=== PATIENT | male | born 1970 | race Caucasian/White ===

== ENCOUNTER 2017-09-17 01:10 | Observation (INO) | payer OTHER ==
[2017-09-17] MEDS ORDERED: ASPIRIN 81 MG PO STA (01:17)
--- NOTE | 2017-09-17 01:36 | XR ---
EXAMINATION TYPE: XR chest 1V portable DATE OF EXAM: 09/17/2017 COMPARISON: 02/28/2010 HISTORY: Chest pain TECHNIQUE: Single frontal view of the chest is obtained. FINDINGS: Heart and mediastinum are normal. Lungs are clear. Diaphragm is normal. Bony thorax is int act. IMPRESSION: Normal chest. No change.
[2017-09-17] MEDS ORDERED: MORPHINE SULFATE 4 MG/ML SYRINGE IVP STA (01:46)
[2017-09-17 02:08] LABS: Basophils % (A) 0 %; Eosinophils # (A) 0.2 k/uL (0-0.7); Eosinophils % (A) 3 %; HCT 44.2 % (39.0-53.0); Lymphocytes # (A) 3.6 k/uL (1.0-4.8); Lymphocytes % (A) 38 %; MCH 30.6 pg (25.0-35.0); MCHC 33.9 g/dL (31.0-37.0); MCV 90.4 fL (80.0-100.0); Mean Platelet Volume 8.5; Monocytes # (A) 0.9 k/uL (0-1.0); Monocytes % (A) 9 %; Neutrophils # (A) 4.5 k/uL (1.3-7.7); Neutrophils % (A) 47 %; Platelet Count 187 k/uL (150-450); RBC 4.89 m/uL (4.30-5.90); RDW 12.6 % (11.5-15.5); WBC 9.5 k/uL (3.8-10.6)
[2017-09-17 02:16] LABS: INR 1.1 (<1.2); Partial Thromboplastin Time 23.4 sec (22.0-30.0); Prothrombin Time 10.4 sec (9.0-12.0)
[2017-09-17 02:26] LABS: ALT 45 U/L (21-72); AST 32 U/L (17-59); Albumin 4.1 g/dL (3.5-5.0); Alkaline Phosphatase 49 U/L (38-126); Anion Gap 12 mmol/L; Blood Urea Nitrogen 21 mg/dL (9-20); Calcium 9.5 mg/dL (8.4-10.2); Carbon Dioxide 26 mmol/L (22-30); Chloride 105 mmol/L (98-107); Glucose 107 mg/dL (74-99); Magnesium 1.9 mg/dL (1.6-2.3); Potassium 4.2 mmol/L (3.5-5.1); Sodium 143 mmol/L (137-145); Total Bilirubin 0.7 mg/dL (0.2-1.3); Total Protein 6.8 g/dL (6.3-8.2)
[2017-09-17 02:33] LABS: Creatine Kinase 190 U/L (55-170)
[2017-09-17 02:45] LABS: Creatine Kinase MB 1.3 ng/mL (0.0-2.4); Troponin I <0.012 ng/mL (0.000-0.034)
[2017-09-17] MEDS ORDERED: RX INFO: IV CONTRAST WAS GIVEN 1 EACH MISC MISCELLANE PRN (03:12)
[2017-09-17] MEDS ORDERED: MORPHINE SULFATE 4 MG/ML SYRINGE IV STA (03:13)
[2017-09-17] MEDS ORDERED: MAG HYDROX/AL HYDROX/SIMETH 30 ML, HYOSCYAMINE ELIXIR 10 ML, CIMETIDINE HCL 300 MG, LID... PO STA ×4 (03:13)
--- NOTE | 2017-09-17 03:49 | CT ---
EXAMINATION TYPE: CT angio chest DATE OF EXAM: 09/17/2017 3:38 AM COMPARISON: NONE HISTORY: chest pain, rule of P/E CT DLP: 458 mGycm Automated exposure control for dose reduction was used. CONTRAST: CTA scan of the thorax is performed with IV Contrast, patient injected with 70ml mL of Isovue 370, pu lmonary embolism protocol. There are 3-D post processed images.. FINDINGS: The lungs are clear of infiltrate. There is no evidence of a pulmonary mass. There is no pleural effu kimberly. Gallbladder is large and measures 11.4 cm in length. There is a calcified gallstone. Heart size is normal. There is no pericardial effusion. There is normal contrast opacification of the pulmonary arteries. I see no filling defect. There is no mediastinal adenopathy. There are no hilar masses. The bony thorax is intact. IMPRESSION: NO EVIDENCE OF PULMONARY EMBOLISM. ENLARGED ELONGATED GALLBLADDER. CALCIFIED GALLSTONE.
[2017-09-17] MEDS ORDERED: NITROGLYCERIN SL TABS 0.4 MG TAB SUBLINGUAL PRN (04:41)
--- NOTE | 2017-09-17 05:23 | ED ---
Chest Pain HPI - General Chief Complaint: Chest Pain Stated Complaint: Chest Pain Time Seen by Provider: 09/17/17 01:17 Source: patient Mode of arrival: wheelchair Limitations: no limitations - History of Present Illness Initial Comments: This patient is a 46-year-old man who presents with substernal chest pain that started approximately an hour ago while he was sleeping. The patient states that it feels like an anvil on his chest. He rates it constant and severe. Patient has not noted worsening or relieving factors. He did not have any associated symptoms. When the pain did not resolve he felt that should be checked here. He denies having similar in the past. MD Complaint: chest pain Onset/Timin -: hour(s) Onset: during rest, awoke with symptoms Pain Location: substernal Pain Radiation: back Severity: severe Quality: aching Consistency: constant Improves With: nothing Worsens With: nothing Treatments Prior to Arrival: none - Related Data Home Medications Medication Instructions Recorded Confirmed Lisdexamfetamine Dimesylate 40 mg PO QAM 09/17/17 09/17/17 [Vyvanse] Naproxen Sodium [Aleve] 440 mg PO Q6HR PRN 09/17/17 09/17/17 buPROPion SR [Wellbutrin Sr] 150 mg PO DAILY 09/17/17 09/17/17 Allergies Allergy/AdvReac Type Severity Reaction Status Date / Time No Known Allergies Allergy Verified 09/17/17 01:12 Review of Systems ROS Statement: Those systems with pertinent positive or pertinent negative responses have been documented in the HPI. ROS Other: All systems not noted in ROS Statement are negative. Constitutional: Denies: fever, chills Respiratory: Denies: cough, dyspnea Cardiovascular: Reports: chest pain. Denies: palpitations, dyspnea on exertion , orthopnea, edema Gastrointestinal: Denies: abdominal pain, nausea, vomiting, diarrhea Genitourinary: Denies: dysuria, hematuria Musculoskeletal: Denies: back pain Skin: Denies: rash Neurological: Denies: headache, weakness, numbness EKG Findings - EKG Results: EKG: interpreted by LIBERTAD, sinus rhythm (Rate proximally 60 bpm), normal axis, normal QRS, normal ST/T, no acute changes - PR, Pacemaker, Normal: Normal tracing: normal tracing Past Medical History Past Medical History: No Reported History History of Any Multi-Drug Resistant Organisms: None Reported Past Surgical History: No Surgical Hx Reported Past Psychological History: Anxiety Smoking Status: Never smoker Past Alcohol Use History: Occasional Past Drug Use History: None Reported - Past Family History Father Family Medical History: Coronary Artery Disease (CAD), Diabetes Mellitus, Myocardial Infarction ([place]) Additional Family Medical History / Comment(s): Stents X2 General Exam Limitations: no limitations General appearance: alert, in no apparent distress Head exam: Present: atraumatic, normocephalic Eye exam: Present: normal appearance. Absent: scleral icterus, conjunctival injection Neck exam: Present: normal inspection Respiratory exam: Present: normal lung sounds bilaterally. Absent: respiratory distress, wheezes, rales, rhonchi, stridor, chest wall tenderness Cardiovascular Exam: Present: regular rate, normal rhythm, normal heart sounds. Absent: systolic murmur, diastolic murmur, rubs, gallop GI/Abdominal exam: Present: soft. Absent: distended, tenderness, guarding, rebound, rigid, mass Extremities exam: Present: normal inspection, normal capillary refill. Absent: pedal edema, calf tenderness Back exam: Present: normal inspection. Absent: CVA tenderness (R), CVA tenderness (L) Neurological exam: Present: alert Skin exam: Present: warm, dry, intact, normal color. Absent: rash Course Vital Signs 09/17/17 09/17/17 09/17/17 01:12 01:45 02:35 Temperature 98.2 F Pulse Rate 65 68 Pulse Rate [ 87 Pulse Oximetery ] Respiratory 18 18 Rate Blood Pressure 166/94 130/87 Blood Pressure [Left Arm] O2 Sat by Pulse 100 98 Oximetry 09/17/17 09/17/17 09/17/17 03:39 05:34 06:08 Temperature 97.6 F Pulse Rate 75 Pulse Rate [ 75 66 Pulse Oximetery ] Respiratory 20 18 18 Rate Blood Pressure 146/95 Blood Pressure 118/85 [Left Arm] O2 Sat by Pulse 99 97 Oximetry Chest Pain MDM - [facility] Patient's 46-year-old man with chest pains. Given the patient's hypertension and the radiation to the back of the chest is ordered which is negative. The patient did have relief of his symptoms after a second dose of medication. Patient be admitted for serial cardiac enzymes and telemetry monitoring, as well as to have ultrasound of the right upper quadrant to rule out biliary colic. Disposition Clinical Impression: Chest pain Disposition: ADMITTED IP TO THIS HOSP Condition: Good
[2017-09-17 05:55] VITALS: BMI 29.7
[2017-09-17 08:06] LABS: Creatine Kinase 153 U/L (55-170)
[2017-09-17 08:19] LABS: Creatine Kinase MB 1.3 ng/mL (0.0-2.4); Troponin I <0.012 ng/mL (0.000-0.034)
--- NOTE | 2017-09-17 08:52 | US ---
EXAMINATION TYPE: US abdomen limited DATE OF EXAM: 09/17/2017 COMPARISON: NONE CLINICAL HISTORY: Pain, attention RUQ. NPO. RUQ pain radiating to back. EXAM MEASUREMENTS: Liver Length: 16.2 cm Gallbladder Wall: 0.6 cm CBD: 0.9 cm CHD: 0.8 cm Right Kidney: 11.6 x 5.4 x 6.0 cm Pancreas: Obscured by bowel gas Liver: Appears echogenic and course. There is diminished visualization of the portal triads. These f indings most commonly related to hepatic steatosis and limits evaluation for underlying hepatic cesario s. Gallbladder: Thickened wall with possible surrounding fluid. Neck not well visualized. Echogenic f ocus best seen LLD - 0.8 cm. Lesion seen adjacent to wall = 0.3 cm Evidence for sonographic Brewster's sign: No CBD: Dilated CHD: Dilated Right Kidney: wnl IMPRESSION: Sonographic findings most compatible with acute cholecystitis. There is gallbladder wall thickening, pericholecystic fluid, cholelithiasis within the gallbladder neck, and common bile duct d ilation. However there is no sonographic Brewster sign present therefore ensure there are sitting clini ramin symptoms and laboratory values. If equivocal HIDA scan could be performed.
--- NOTE | 2017-09-17 09:13 | P.CRDCN ---
History of Present Illness Consult date: 09/17/17 History of present illness: Mr. Sanchez is a pleasant 46-year-old male past medical history significant for attention deficit disorder and depression. He denies personal history of coronary artery disease, hypertension, dyslipidemia or diabetes mellitus. He has never seen a senior coldfusion developer for any reason. We have been asked to see him in consultation for chest pain. He states he woke up last night in the middle of the night with intense heavy chest pain that radiated across his chest from left to right and through to his back. He denies radiation to the arm , neck or jaw. He was diaphoretic and mildly nauseated with this pain. He denies associated shortness of breath, dizziness, palpitations or vomiting. The pain persisted with no specific aggravating or alleviating factors. He continues to have a mild discomfort in the anterior mid-sternal region that is not reproducible with palpation or made worse with inspiration. IV morphine and GI cocktail was given in ED and ultimately a second dose of morphine helped relieve the intensity of the pain. EKG reveals sinus mechanism with no acute ST or T-wave abnormalities. Chest xray negative for an acute cardiopulmonary process. CT angios of the chest performed reveals no evidence of pulmonary embolism. Elongated gallbladder with calcified gallstone. abdominal ultrasound reveals findings compatible with acute cholecystitis. There is goblet or wall thickening, pericholecystic fluid, cholelithiasis is in the gallbladder neck and common bile duct dilation. HIDA recommended. Laboratory data reviewed, hemoglobin 15, platelets 187, sodium 143, potassium 4.2, magnesium 1.9, creatinine 0.9, cardiac enzymes negative 2. Current daily medications include wellbutrin, vyvanse, aleeve and multi- vitamin. Cardiac risk factors include family history with father having premature coronary artery disease with angioplasty and former tobacco use, quit 3 years ago. Review of Systems At the time of my exam: CONSTITUTIONAL: Denies fever. Denies chills. EYES: Denies blurred vision. Denies vision changes. Denies eye pain. EARS, NOSE, MOUTH & THROAT: Denies headache. Denies sore throat. Denies ear pain. CARDIOVASCULAR: Complains of mild mid-sternal chest ache. Denies shortness of breath. Denies orthopnea. Denies PND. Denies palpitations. RESPIRATORY: Denies cough. GASTROINTESTINAL: Denies abdominal pain. Denies diarrhea. Denies constipation. Denies nausea. Denies vomiting. MUSCULOSKELETAL: Denies myalgias. INTEGUMENTARY: Denies pruitis. Denies rash. NEUROLOGIC: Denies numbness. Denies tingling. Denies weakness. PSYCHIATRIC: Denies anxiety. Denies depression. ENDOCRINE: Denies fatigue. Denies weight change. Denies polydipsia. Denies polyurina. GENITOURINARY: Denies burning, hematuria or urgency with micturation. HEMATOLOGIC: Denies history of anemia. Denies bleeding. Past Medical History Past Medical History: No Reported History History of Any Multi-Drug Resistant Organisms: None Reported Past Surgical History: No Surgical Hx Reported Additional Past Surgical History / Comment(s): Tear duct replaced, Lasic 2018 Past Anesthesia/Blood Transfusion Reactions: No Reported Reaction Past Psychological History: Anxiety Smoking Status: Never smoker Past Alcohol Use History: Occasional Past Drug Use History: None Reported - Past Family History Father Family Medical History: Coronary Artery Disease (CAD), Diabetes Mellitus, Myocardial Infarction ([place]) Additional Family Medical History / Comment(s): Stents X2 Medications and Allergies Home Medications Medication Instructions Recorded Confirmed Type Multivitamins, Thera [Multivitamin 1 tab PO DAILY 09/17/17 09/17/17 History (formulary)] Naproxen Sodium [Aleve] 440 mg PO Q6HR PRN 09/17/17 09/17/17 History buPROPion SR [Wellbutrin Sr] 150 mg PO DAILY 09/17/17 09/17/17 History buPROPion XL [Wellbutrin Xl] 300 mg PO DAILY 09/17/17 09/17/17 History Allergies Allergy/AdvReac Type Severity Reaction Status Date / Time No Known Allergies Allergy Verified 09/17/17 08:15 Physical Exam Vitals: Vital Signs Temp Pulse Pulse Resp BP BP Pulse Ox 09/17/17 07:25 98 F 75 16 128/79 94 L 09/17/17 06:08 66 18 09/17/17 05:34 97.6 F 75 18 118/85 97 09/17/17 03:39 75 20 146/95 99 09/17/17 02:35 68 18 130/87 98 09/17/17 01:45 87 09/17/17 01:12 98.2 F 65 18 166/94 100 Intake and Output 05/10/2909/17/17 09/17/17 22:59 06:59 14:59 Intake Total 10 Balance 10 Intake: Amount of Fluid Infused ( 10 ml) Other: Voiding Method Toilet # Voids 1 Weight 99.7 kg Blood pressure 128/79 heart rate 75 afebrile maintaining oxygen saturation on room air. GENERAL: This is a 46-year-old male in no apparent distress at the time of my examination. HEENT: Head is atraumatic, normocephalic. Pupils are equal, round. Sclerae anicteric. Conjunctivae are clear. Mucous membranes of the mouth are moist. Neck is supple. There is no jugular venous distention. No carotid bruit is heard. LUNGS: Clear to auscultation no wheezes, rales or rhonchi. No chest wall tenderness is noted on palpation or with deep breathing. HEART: Regular rate and rhythm without murmurs, rubs or gallops. S1 and S2 heard. ABDOMEN: Soft, nontender. Bowel sounds are heard. No organomegaly noted. EXTREMITIES: No evidence of peripheral edema and no calf tenderness noted. VASCULAR: Radial and dorsalis pedis pulses palpated, no evidence of clubbing. NEUROLOGIC: Patient is awake, alert and oriented x3. Results 09/17/17 01:30 09/17/17 01:30 Cardiac Enzymes 09/17/17 09/17/17 Range/Units 01:30 01:30 AST 32 (17-59) U/L CK-MB (CK-2) 1.3 (0.0-2.4) ng/mL Troponin I <0.012 (0.000-0.034) ng/mL Coagulation 09/17/17 Range/Units 01:30 PT 10.4 (9.0-12.0) sec APTT 23.4 (22.0-30.0) sec CBC 09/17/17 Range/Units 01:30 WBC 9.5 (3.8-10.6) k/uL RBC 4.89 (4.30-5.90) m/uL Hgb 15.0 (13.0-17.5) gm/dL Hct 44.2 (39.0-53.0) % Plt Count 187 (150-450) k/uL Comprehensive Metabolic Panel 09/17/17 Range/Units 01:30 Sodium 143 (137-145) mmol/L Potassium 4.2 (3.5-5.1) mmol/L Chloride 105 (98-107) mmol/L Carbon Dioxide 26 (22-30) mmol/L BUN 21 H (9-20) mg/dL Creatinine 0.90 (0.66-1.25) mg/dL Glucose 107 H (74-99) mg/dL Calcium 9.5 (8.4-10.2) mg/dL AST 32 (17-59) U/L ALT 45 (21-72) U/L Alkaline Phosphatase 49 (38-126) U/L Total Protein 6.8 (6.3-8.2) g/dL Albumin 4.1 (3.5-5.0) g/dL Current Medications Generic Name Dose Route Start Last Admin Trade Name Freq PRN Reason Stop Dose Admin Aspirin 325 mg 09/18/17 09:00 Aspirin PO DAILY TIM Miscellaneous Information 1 each 09/17/17 03:12 Rx Info: Iv Contrast Was Given MISCELLANE 09/19/17 03:13 DAILY PRN Per Protocol Nitroglycerin 0.4 mg 09/17/17 04:41 Nitrostat SUBLINGUAL Q5M PRN Chest Pain Intake and Output 09/16/17 09/17/17 09/17/17 22:59 06:59 14:59 Intake Total 10 Balance 10 Intake: Amount of Fluid Infused ( 10 ml) Other: Voiding Method Toilet # Voids 1 Weight 99.7 kg 09/17/17 01:30 09/17/17 01:30 Assessment and Plan Assessment: ASSESSMENT 1. Chest pain, atypical. An acute coronary event has been rule out with no EKG evidence of ischemia and negative cardiac enzymes. 2. Gallbladder wall thickening, pericholecystic fluid, cholelithiasis with gallbladder neck and common bile duct dilation. 3. Cardiac risk factors are family history and former tobacco use. PLAN Obtain 2D echocardiogram and doppler study to assess cardiac structure and function. Ongoing medical management of gallbladder disease. Stress testing as an outpatient once gallbladder disease addressed. Follow-up with Dr. Dalton in 2 weeks. Thank you kindly for this consultation. Nurse Practitioner note has been reviewed, I agree with a documented findings and plan of care. Patient was seen and examined.
--- NOTE | 2017-09-17 10:35 | P.HPIM ---
History of Present Illness H&P Date: 09/17/17 Chief Complaint: Chest pain 46-year-old male who presented to the emergency room with a chief complaint of chest pain. Patient states he started having midsternal chest pain that radiated into his back last night. Denies radiation to the arm or neck. He described the pain as a heavy pressure on his chest. Denied shortness of breath. Denied nausea or vomiting. He states he was working out in the yard earlier in the day and denied chest pain at that time. He denies any pain or discomfort after meals. Chest x-ray: Negative for acute process Chest CTA: Negative for pulmonary emboli. Enlarged elongated gallbladder. Calcified gallstones. Gallbladder US: Findings compatible with acute cholecystitis. There is gallbladder wall thickening, pericholecystic fluid, cholelithiasis within the gallbladder neck, and common bile duct dilation. EKG: Sinus rhythm. Rate 60. Laboratory data: WBC 9.5. Hemoglobin 15.0. Platelet count 187. Sodium 143. Potassium 4.2. BUN 21. Creatinine 0.90. Glucose 107. Magnesium 1.9. Troponin: Negative 2 The patient was admitted to the hospital under the care of Dr. Guerin to the observation unit. Consultations were placed to cardiology. Review of Systems Those systems with pertinent positive or pertinent negative responses have been documented in the HPI Past Medical History Past Medical History: No Reported History History of Any Multi-Drug Resistant Organisms: None Reported Past Surgical History: No Surgical Hx Reported Additional Past Surgical History / Comment(s): Tear duct replaced, Lasic 2017 Past Anesthesia/Blood Transfusion Reactions: No Reported Reaction Past Psychological History: Anxiety Smoking Status: Never smoker Past Alcohol Use History: Occasional Past Drug Use History: None Reported - Past Family History Father Family Medical History: Coronary Artery Disease (CAD), Diabetes Mellitus, Myocardial Infarction ([place]) Additional Family Medical History / Comment(s): Stents X2 Medications and Allergies Home Medications Medication Instructions Recorded Confirmed Type Multivitamins, Thera [Multivitamin 1 tab PO DAILY 09/17/17 09/17/17 History (formulary)] Naproxen Sodium [Aleve] 440 mg PO Q6HR PRN 09/17/17 09/17/17 History buPROPion XL [Wellbutrin Xl] 300 mg PO DAILY 09/17/17 09/17/17 History Allergies Allergy/AdvReac Type Severity Reaction Status Date / Time No Known Allergies Allergy Verified 09/17/17 08:15 Physical Exam Vitals: Vital Signs Temp Pulse Pulse Resp BP BP Pulse Ox 09/17/17 08:00 16 09/17/17 07:25 98 F 75 16 128/79 94 L 09/17/17 06:08 66 18 09/17/17 05:34 97.6 F 75 18 118/85 97 09/17/17 03:39 75 20 146/95 99 09/17/17 02:35 68 18 130/87 98 09/17/17 01:45 87 09/17/17 01:12 98.2 F 65 18 166/94 100 Intake and Output 09/16/17 09/17/17 09/17/17 22:59 06:59 14:59 Intake Total 10 Balance 10 Intake: Amount of Fluid Infused ( 10 ml) Other: Voiding Method Toilet Toilet # Voids 1 Weight 99.7 kg GENERAL: This is a 46-year-old male in no apparent distress at the time of examination. Pleasant and cooperative. HEENT: Head is atraumatic, normocephalic. Pupils are equal, round, and reactive to light. Sclerae anicteric. Conjunctivae are clear. Mucus membranes of the mouth are moist. Neck is supple. RESPIRATORY: Clear to ausculation. No wheezes, rales, or rhonchi. No use of accessory muscles. Patient maintaining oxygen saturation greater than 92%. No chest wall tenderness is noted on palpation or with deep breathing. CARDIOVASCULAR: Regular rate and rhythm. S1 and S2 noted. No systolic or diastolic murmur auscultated. No JVD noted. No S3 or S4 noted. GASTROINTESTINAL: No distention noted. Abdomen soft and round. Normal active bowel sounds auscultated x 4 quadrants. Mild pain and tenderness noted upon palpation of right upper quadrant. INTEGUMENTARY: No cyanosis. No jaundice. No rashes noted. No cellulitis noted. EXTREMITIES: 2+ peripheral pulses. No evidence of peripheral edema. No calf tenderness noted. NEUROLOGIC: Cranial nerves II-XII intact. PSYCHIATRIC: Awake, alert, and oriented X 3. Appropriate affect. Intact judgement and insight. Results CBC & Chem 7: 09/17/17 01:30 09/17/17 01:30 Labs: Abnormal Lab Results - Last 24 Hours (Table) 09/17/17 09/17/17 Range/Units 01:30 01:30 BUN 21 H (9-20) mg/dL Glucose 107 H (74-99) mg/dL Total Creatine Kinase 190 H (55-170) U/L Thrombosis Risk Factor Assmnt - Choose All That Apply Each Factor Represents 1 point: Age 41-60 years Thrombosis Risk Factor Assessment Total Risk Factor Score: 1 Thrombosis Risk Factor Assessment Level: Low Risk Assessment and Plan Plan: ASSESSMENT: Chest pain, present on admission, troponin negative x 2, acute coronary syndrome ruled out per cardiology Suspected acute cholecystitis, ultrasound reveals gallbladder wall thickening, pericholecystic fluid, cholelithiasis within the gallbladder neck, and common bile duct dilation. PLAN: Cardiology on consult. Appreciate recommendations and input Patient to have stress test on an outpatient basis Consult Dr. Cruz Maintain NPO Home meds as appropriate Monitor labs GI prophylaxis: Pepcid 20mg IV q12 hours DVT prophylaxis: JACKIE hose to bilateral lower extremities Monitor vital signs and address as appropriate Further recommendations pending patient's course Nurse practitioner note has been reviewed by physician. Signing provider agrees with the documented findings, assessment, and plan of care.
[2017-09-17 10:49] LABS: ALT 62 U/L (21-72); AST 55 U/L (17-59); Albumin 4.2 g/dL (3.5-5.0); Alkaline Phosphatase 55 U/L (38-126); Anion Gap 16 mmol/L; Blood Urea Nitrogen 16 mg/dL (9-20); Calcium 9.3 mg/dL (8.4-10.2); Carbon Dioxide 21 mmol/L (22-30); Chloride 103 mmol/L (98-107); Cholesterol 176 mg/dL (<200); HDL Cholesterol 52 mg/dL (40-60); LDL Cholesterol,Calculated 95 mg/dL (0-99); Sodium 140 mmol/L (137-145); Total Bilirubin 1.2 mg/dL (0.2-1.3); Total Protein 6.8 g/dL (6.3-8.2); Triglycerides 143 mg/dL (<150)
[2017-09-17 11:20] LABS: Glucose 121 mg/dL (74-99); Potassium 4.2 mmol/L (3.5-5.1)
--- NOTE | 2017-09-17 11:46 | ECHOF ---
Referral Reason:cp MEASUREMENTS -------- HEIGHT: 180.3 cm WEIGHT: 99.3 kg BP: RVIDd: 2.6 cm (< 3.3) IVSd: 1.4 cm (0.6 - 1.1) LVIDd: 4.1 cm (3.9 - 5.3) LVPWd: 1.2 cm (0.6 - 1.1) IVSs: 1.8 cm LVIDs: 2.6 cm LVPWs: 2.1 cm Ao Diam: 3.1 cm (2.0 - 3.7) AV Cusp: 1.9 cm (1.5 - 2.6) LA Diam: 3.4 cm (2.7 - 3.8) MV EXCURSION: 23.254 mm (> 18.000) MV EF SLOPE: 145 mm/s (70 - 150) EPSS: 0.3 cm MV E Heladio: 0.74 m/s MV DecT: 198 ms MV A Heladio: 0.70 m/s MV E/A Ratio: 1.06 RAP: 5.00 mmHg RVSP: 19.53 mmHg FINDINGS -------- Sinus rhythm. This was a technically good study. The left ventricular size is normal. There is mild concentric left ventricular hypertrophy. Overa ll left ventricular systolic function is normal with, an EF between 55 - 60 %. The right ventricle is normal in size. The left atrial size is normal. The right atrium is normal in size. The aortic valve is trileaflet, and appears structurally normal. No aortic stenosis or regurgitation. There is trace mitral regurgitation. Trace tricuspid regurgitation present. The right ventricular systolic pressure, as measured by Dopp ler, is 19.53mmHg. Pulmonic valve appears structurally normal. The aortic root size is normal. Normal inferior vena cava with normal inspiratory collapse consistent with estimated right atrial pre ssure of 5 mmHg. The pericardium is normal. CONCLUSIONS -------- 1. Sinus rhythm. 2. This was a technically good study. 3. The left ventricular size is normal. 4. There is mild concentric left ventricular hypertrophy. 5. Overall left ventricular systolic function is normal with, an EF between 55 - 60 %. 6. The right ventricle is normal in size. 7. The left atrial size is normal. 8. The right atrium is normal in size. 9. The aortic valve is trileaflet, and appears structurally normal. No aortic stenosis or regurgitati on. 10. There is trace mitral regurgitation. 11. Trace tricuspid regurgitation present. 12. The right ventricular systolic pressure, as measured by Doppler, is 19.53mmHg. 13. Pulmonic valve appears structurally normal. 14. The aortic root size is normal. 15. Normal inferior vena cava with normal inspiratory collapse consistent with estimated right atrial pressure of 5 mmHg. 16. The pericardium is normal. PACKING ROOM SUPERVISOR: Xiomara No RDCS
[2017-09-17] MEDS ORDERED: BUPIVACAINE (PF) 0.25% 30 ML VIAL SQ ONE ×2 (12:51)
[2017-09-17] MEDS: LACTATED RINGERS 1,000 ML IV ONE ×2 (12:51→13:12)
[2017-09-17] MEDS ORDERED: HEPARIN SODIUM,PORCINE 5,000 UNIT/ML 1 ML VIAL SQ ONE (13:56)
[2017-09-17] MEDS ORDERED: PIPERACILLIN-TAZOBACTAM 3.375 GM in DEXTROSE/WATER 1 50ML.BAG IVPB STA (13:57)
[2017-09-17] MEDS ORDERED: SUCCINYLCHOLINE CHLORIDE 100 MG/5 ML SYR IV ONE (13:59)
[2017-09-17] MEDS ORDERED: LIDOCAINE 1% INJ 10MG/ML (20 ML MDV) ONE (13:59)
[2017-09-17] MEDS ORDERED: MIDAZOLAM 2 MG/2 ML VIAL ONE (13:59)
[2017-09-17] MEDS ORDERED: fentaNYL (PF) 50 MCG/ML 2 ML AMP ONE (13:59)
[2017-09-17] MEDS ORDERED: NEOSTIGMINE 1 MG/ML 10 ML VIAL ONE (13:59)
[2017-09-17] MEDS ORDERED: PROPOFOL 10 MG/ML 20 ML VIAL IV ONE (13:59)
[2017-09-17] MEDS ORDERED: GLYCOPYRROLATE 0.2 MG/ML 2 ML VIAL ONE (13:59)
[2017-09-17] MEDS ORDERED: ROCURONIUM BROMIDE 10 MG/ML 10 ML VIAL IV ONE (13:59)
[2017-09-17] MEDS ORDERED: KETOROLAC 30 MG/ML 1 ML VIAL ONE (13:59)
--- NOTE | 2017-09-17 13:59 | P.GSCN ---
History of Present Illness Consult date: 09/17/17 Reason for Consult: Acute cholecystitis History of present illness: Patient presents with pain in the midepigastric and lower chest region with radiation to the back. Some anorexia but no nausea or vomiting. He has had episodes like this in the past that were related to eating. This pain awoke him from sleep last night at 11 PM. Pain is improved currently but did persist throughout the night. Normal CMP and CBC. Normal cardiac echo. Cardiology has cleared him for surgery. CAT scan chest showed gallstones with what appears to be a stone in the neck of the gallbladder. Ultrasound also shows findings consistent with acute cholecystitis. Patient denies any change in the color of his skin urine or stool. Review of Systems The patient denies any acute changes in vision or hearing, no dysphagia or odynophagia, no chest pain or shortness of breath, no dysuria or hematuria, no headache, no runny nose, no rectal bleeding or melena, no unexplained weight loss Past Medical History Past Medical History: No Reported History History of Any Multi-Drug Resistant Organisms: None Reported Past Surgical History: No Surgical Hx Reported Additional Past Surgical History / Comment(s): Tear duct replaced, Lasic 2018 Past Anesthesia/Blood Transfusion Reactions: No Reported Reaction Past Psychological History: Anxiety Smoking Status: Never smoker Past Alcohol Use History: Occasional Past Drug Use History: None Reported - Past Family History Father Family Medical History: Coronary Artery Disease (CAD), Diabetes Mellitus, Myocardial Infarction ([place]) Additional Family Medical History / Comment(s): Stents X2 Medications and Allergies Home Medications Medication Instructions Recorded Confirmed Type Multivitamins, Thera [Multivitamin 1 tab PO DAILY 09/17/17 09/17/17 History (formulary)] Naproxen Sodium [Aleve] 440 mg PO Q6HR PRN 09/17/17 09/17/17 History buPROPion XL [Wellbutrin Xl] 300 mg PO DAILY 09/17/17 09/17/17 History Allergies Allergy/AdvReac Type Severity Reaction Status Date / Time No Known Allergies Allergy Verified 09/17/17 08:15 Surgical - Exam Vital Signs Temp Pulse Resp BP Pulse Ox 98.2 F 65 18 166/94 100 09/17/17 01:12 09/17/17 01:12 09/17/17 01:12 09/17/17 01:12 09/17/17 01:12 Physical exam: General: Well-developed, well-nourished HEENT: Normocephalic, sclerae nonicteric Abdomen: Mild epigastric tenderness, nondistended Extremities: No edema Neuro: Alert and oriented Results - Labs 09/17/17 01:30 09/17/17 07:05 Abnormal Lab Results - Last 24 Hours (Table) 09/17/17 09/17/17 09/17/17 Range/Units 01:30 01:30 07:05 Carbon Dioxide 21 L (22-30) mmol/L BUN 21 H (9-20) mg/dL Creatinine 0.64 L (0.66-1.25) mg/dL Glucose 107 H 121 H (74-99) mg/dL Total Creatine Kinase 190 H (55-170) U/L Diabetes panel 09/17/17 09/17/17 Range/Units 01:30 07:05 Sodium 143 140 (137-145) mmol/L Potassium 4.2 4.2 (3.5-5.1) mmol/L Chloride 105 103 (98-107) mmol/L Carbon Dioxide 26 21 L (22-30) mmol/L BUN 21 H 16 (9-20) mg/dL Creatinine 0.90 0.64 L (0.66-1.25) mg/dL Glucose 107 H 121 H (74-99) mg/dL Calcium 9.5 9.3 (8.4-10.2) mg/dL AST 32 55 (17-59) U/L ALT 45 62 (21-72) U/L Alkaline Phosphatase 49 55 (38-126) U/L Total Protein 6.8 6.8 (6.3-8.2) g/dL Albumin 4.1 4.2 (3.5-5.0) g/dL Triglycerides 143 (<150) mg/dL HDL Cholesterol 52 (40-60) mg/dL Calcium panel 09/17/17 09/17/17 Range/Units 01:30 07:05 Calcium 9.5 9.3 (8.4-10.2) mg/dL Albumin 4.1 4.2 (3.5-5.0) g/dL Pituitary panel 09/17/17 09/17/17 Range/Units 01:30 07:05 Sodium 143 140 (137-145) mmol/L Potassium 4.2 4.2 (3.5-5.1) mmol/L Chloride 105 103 (98-107) mmol/L Carbon Dioxide 26 21 L (22-30) mmol/L BUN 21 H 16 (9-20) mg/dL Creatinine 0.90 0.64 L (0.66-1.25) mg/dL Glucose 107 H 121 H (74-99) mg/dL Calcium 9.5 9.3 (8.4-10.2) mg/dL Adrenal panel 09/17/17 09/17/17 Range/Units 01:30 07:05 Sodium 143 140 (137-145) mmol/L Potassium 4.2 4.2 (3.5-5.1) mmol/L Chloride 105 103 (98-107) mmol/L Carbon Dioxide 26 21 L (22-30) mmol/L BUN 21 H 16 (9-20) mg/dL Creatinine 0.90 0.64 L (0.66-1.25) mg/dL Glucose 107 H 121 H (74-99) mg/dL Calcium 9.5 9.3 (8.4-10.2) mg/dL Total Bilirubin 0.7 1.2 (0.2-1.3) mg/dL AST 32 55 (17-59) U/L ALT 45 62 (21-72) U/L Alkaline Phosphatase 49 55 (38-126) U/L Total Protein 6.8 6.8 (6.3-8.2) g/dL Albumin 4.1 4.2 (3.5-5.0) g/dL Assessment and Plan (1) Acute cholecystitis Narrative/Plan: Clinical scenario discussed with the patient and his . Will proceed with laparoscopic, possible open cholecystectomy. Risks of bleeding, infection, bile leak, bile duct injury, retained common bile duct stone, conversion to an open procedure, respiratory and cardiac complications were discussed. He understands and wishes to proceed. Current Visit: Yes Status: Acute Code(s): K81.0 - ACUTE CHOLECYSTITIS SNOMED Code(s): 11719333
[2017-09-17] MEDS ORDERED: LACTATED RINGERS 1,000 ML IV ONE (15:00)
--- NOTE | 2017-09-17 15:11 | P.OP ---
Date of Procedure: 09/17/17 Procedure(s) Performed: PREOPERATIVE DIAGNOSIS: Acute cholecystitis POSTOPERATIVE DIAGNOSIS: Same PROCEDURE: Laparoscopic cholecystectomy SURGEON: Anthony EBL: Minimal see anesthesia record ANESTHESIA: Gen. COMPLICATIONS: None OPERATIVE PROCEDURE: The patient was brought and placed on the operating room table in the supine position. The patient was placed under general anesthesia at that time. The abdomen was prepped and draped in the usual sterile fashion. A small vertical infraumbilical incision was made. The fascia was grasped with the Citlalli forceps. The fascia was retracted anteriorly. The Veress needle was advanced into the peritoneal cavity. The saline drop test was normal. Insufflation took place up to 15 mmHg. A 5 mm optical trocar was advanced and the peritoneal cavity. 2 additional 5 mm trochars were placed in the right upper quadrant under direct visualization. A 10 mm trocar was advanced into the epigastric incision site. This was later switched to a 12 mm trocar because of the prominent inflammatory change around the cystic duct. The gallbladder was retracted superiorly and laterally. The peritoneum overlying the infundibulum was bluntly dissected. The patient's cystic duct was visualized. The junction between the cystic duct common and hepatic duct was identified. The cystic duct was then divided after placement of 3 12 mm clips on the patient's side and one on the specimen side. The cystic artery was identified and clipped as well. A small vessel was seen along the gallbladder fossa and clipped as well. The gallbladder was then removed from the liver bed using electrocautery. The patient had significant edema between the gallbladder and the liver bed. The gallbladder was then removed from the epigastric trocar site with an Endo Catch bag. The gallbladder fossa was irrigated with saline. There was no evidence of any bleeding or biliary drainage seen. The trochars were then removed. The fascia at the 12 millimeter site was closed using a [id number] 0 Vicryl stitch. The skin at all 4 sites was closed using a 4-0 Monocryl stitch. At the end of this procedure the sponge and needle counts were correct. DISPOSITION: Stable to the recovery room
[2017-09-17] MEDS: HYDROcodone/APAP 5-325MG 1 EACH TAB PO PRN (16:57)
[2017-09-17] MEDS: PIPERACILLIN-TAZOBACTAM 3.375 GM in DEXTROSE/WATER 1 50ML.BAG IVPB SCH (20:02)
[2017-09-17] MEDS: MORPHINE SULFATE 4 MG/ML SYRINGE IVP PRN (20:03)
[2017-09-17] MEDS: FAMOTIDINE 20 MG/2 ML VIAL IV SCH (20:19)
[2017-09-18] MEDS: PIPERACILLIN-TAZOBACTAM 3.375 GM in DEXTROSE/WATER 1 50ML.BAG IVPB SCH (03:36)
[2017-09-18] MEDS: MORPHINE SULFATE 4 MG/ML SYRINGE IVP PRN (03:38)
[2017-09-18 07:28] LABS: Basophils % (A) 0 %; Eosinophils # (A) 0.1 k/uL (0-0.7); Eosinophils % (A) 1 %; HCT 46.2 % (39.0-53.0); Lymphocytes # (A) 2.8 k/uL (1.0-4.8); Lymphocytes % (A) 28 %; MCH 31.1 pg (25.0-35.0); MCHC 34.7 g/dL (31.0-37.0); MCV 89.5 fL (80.0-100.0); Mean Platelet Volume 8.3; Monocytes # (A) 0.6 k/uL (0-1.0); Monocytes % (A) 6 %; Neutrophils # (A) 6.4 k/uL (1.3-7.7); Neutrophils % (A) 63 %; Platelet Count 206 k/uL (150-450); RBC 5.16 m/uL (4.30-5.90); RDW 12.4 % (11.5-15.5); WBC 10.1 k/uL (3.8-10.6)
[2017-09-18] MEDS: HYDROcodone/APAP 5-325MG 1 EACH TAB PO PRN (07:37)
[2017-09-18 07:58] VITALS: BP 134/84; PULSE 81; RESP 18; TEMP 97.4
[2017-09-18 08:03] LABS: ALT 116 U/L (21-72); AST 91 U/L (17-59); Albumin 4.1 g/dL (3.5-5.0); Alkaline Phosphatase 63 U/L (38-126); Anion Gap 14 mmol/L; Blood Urea Nitrogen 10 mg/dL (9-20); Calcium 9.1 mg/dL (8.4-10.2); Carbon Dioxide 24 mmol/L (22-30); Chloride 104 mmol/L (98-107); Glucose 113 mg/dL (74-99); Potassium 4.2 mmol/L (3.5-5.1); Sodium 142 mmol/L (137-145); Total Bilirubin 1.9 mg/dL (0.2-1.3); Total Protein 6.7 g/dL (6.3-8.2)
[2017-09-18] MEDS: FAMOTIDINE 20 MG/2 ML VIAL IV SCH (08:59)
[2017-09-18] MEDS ORDERED: buPROPion XL 300 MG TAB.ER.24H PO SCH (09:00)
[2017-09-18] MEDS ORDERED: ASPIRIN 325 MG TAB PO SCH (09:00)
[2017-09-18] MEDS ORDERED: ASPIRIN 81 MG PO SCH (09:00)
[2017-09-18] MEDS ORDERED: buPROPion SR 150 MG TABLET.ER PO SCH (09:00)
--- NOTE | 2017-09-18 09:03 | P.DS ---
Providers Date of admission: 09/17/17 04:43 Expected date of discharge: 09/18/17 Attending physician: Lele Guerin Consults: 09/17/17 04:41 Consult Physician Routine Consulting Provider: Bowen Dalton Consult Reason/Comments: chest pain Do you want consulting provider notified?: Yes 09/17/17 09:15 Consult Physician Routine Consulting Provider: Miguel Cruz Consult Reason/Comments: gallstones Do you want consulting provider notified?: Yes Primary care physician: Lele Guerin [place] [facility] Course: 46-year-old male who presented to the emergency room with a chief complaint of chest pain. Patient states he started having midsternal chest pain that radiated into his back last night. Denies radiation to the arm or neck. He described the pain as a heavy pressure on his chest. Denied shortness of breath. Denied nausea or vomiting. He states he was working out in the yard earlier in the day and denied chest pain at that time. He denies any pain or discomfort after meals. Chest x-ray: Negative for acute process Chest CTA: Negative for pulmonary emboli. Enlarged elongated gallbladder. Calcified gallstones. Gallbladder US: Findings compatible with acute cholecystitis. There is gallbladder wall thickening, pericholecystic fluid, cholelithiasis within the gallbladder neck, and common bile duct dilation. EKG: Sinus rhythm. Rate 60. Laboratory data: WBC 9.5. Hemoglobin 15.0. Platelet count 187. Sodium 143. Potassium 4.2. BUN 21. Creatinine 0.90. Glucose 107. Magnesium 1.9. Troponin: Negative 2 The patient was admitted to the hospital under the care of Dr. Guerin to the observation unit. Consultations were placed to cardiology and general surgery. Cardiology evaluated the patient and recommended the patient follow up in two weeks with Dr. Dalton for outpatient stress testing. Patient underwent laparoscopic cholecystectomy with Dr. Cruz on 09/17/2017. He has done well postoperatively with no obvious complications. His surgical dressing sites are clean dry and intact. The patients pain is controlled. He is tolerating PO intake without nausea or vomiting. He was deemed stable for discharge per Dr. Guerin. He is to follow up outpatient with Dr. Guerin, Dr. Cruz, and Dr. Dalton. DISCHARGE DIAGNOSIS: Chest pain, present on admission, troponin negative x 2, acute coronary syndrome ruled out per cardiology Acute cholecystitis, ultrasound reveals gallbladder wall thickening, pericholecystic fluid, cholelithiasis within the gallbladder neck, and common bile duct dilation, s/p laparoscopic cholecystectomy on 09/17/2017, POD #1 Nurse practitioner note has been reviewed by physician. Signing provider agrees with the documented findings, assessment, and plan of care. Patient Condition at Discharge: Good Plan - Discharge Summary Discharge Rx Participant: No New Discharge Prescriptions: New HYDROcodone/APAP 5-325MG [[place] 5-325] 1 each PO Q4HR PRN #18 tab PRN Reason: Moderate Pain Docusate [Colace] 100 mg PO DAILY #30 capsule Continue buPROPion XL [Wellbutrin XL] 300 mg PO DAILY Multivitamins, Thera [Multivitamin (formulary)] 1 tab PO DAILY Discontinued Naproxen Sodium [Aleve] 440 mg PO Q6HR PRN PRN Reason: Pain Discharge Medication List Multivitamins, Thera [Multivitamin (formulary)] 1 tab PO DAILY 09/17/17 [History ] buPROPion XL [Wellbutrin XL] 300 mg PO DAILY 09/17/17 [History] Docusate [Colace] 100 mg PO DAILY #30 capsule 09/18/17 [Rx] HYDROcodone/APAP 5-325MG [[place] 5-325] 1 each PO Q4HR PRN #18 tab 09/18/17 [Rx] Follow up Appointment(s)/Referral(s): Miguel Cruz MD [Medical Doctor] - 1 Week Lele Guerin DO [Primary Care Provider] - 2 Weeks Activity/Diet/Wound Care/Special Instructions: Limited activity until you see Dr. Cruz in the office no lifting over 10 pounds No tub baths Discharge Disposition: HOME SELF-CARE
--- NOTE | 2017-09-18 14:35 | P.PN ---
Subjective Progress Note Date: 09/18/17 Principal diagnosis: Acute cholecystitis Patient feels well today. No significant pain at this time. Today's liver enzymes have increased slightly. He is afebrile. He is tolerating his diet. He would like to go home today. Objective - Vital Signs Vital signs: Vital Signs Temp 97.4 F L 09/18/17 07:57 Pulse 81 09/18/17 07:57 Resp 18 09/18/17 08:00 BP 134/84 09/18/17 07:57 Pulse Ox 98 09/18/17 07:57 Intake & Output 09/17/17 09/18/17 09/18/17 18:59 06:59 18:59 Intake Total 1625 440 Output Total 15 Balance 1610 440 Intake: IV 1250 Oral 375 440 Output: Estimated Blood Loss 15 Other: Voiding Method Toilet Toilet Toilet # Voids 1 - Exam Abdomen: Soft, nondistended, mild incisional tenderness, dressings clean and dry - Labs CBC & Chem 7: 09/18/17 06:21 09/18/17 06:21 Labs: Abnormal Lab Results - Last 24 Hours (Table) 09/18/17 Range/Units 06:21 Glucose 113 H (74-99) mg/dL Total Bilirubin 1.9 H (0.2-1.3) mg/dL AST 91 H (17-59) U/L ALT 116 H (21-72) U/L Assessment and Plan (1) Acute cholecystitis Narrative/Plan: Stable for discharge from my standpoint. We'll check labs in 1 week. Follow- up in 1 week. Status: Acute Code(s): K81.0 - ACUTE CHOLECYSTITIS SNOMED Code(s): 00259139
== END 2017-09-18 13:28 | disposition home or self-care (01) ==
LOC: EC 01:10 → 3OBS 04:43
PROVIDERS: ADMIT Family Medicine; ATTEND Family Medicine
DX: K80.12 Calculus of gallbladder with acute and chronic cholecystitis without obstruction (principal); K83.8 Other specified diseases of biliary tract; R07.89 Other chest pain; F41.9 Anxiety disorder, unspecified; F32.9 Major depressive disorder, single episode, unspecified; F90.0 Attention-deficit hyperactivity disorder, predominantly inattentive type; Z79.899 Other long term (current) drug therapy; Z83.3 Family history of diabetes mellitus; Z82.49 Family history of ischemic heart disease and other diseases of the circulatory system
CPT/HCPCS: 47562; 99285 ×2; 96374 ×2; 96376 ×2; 36415; 94760; 93005; 93306; 88304; 80061; 80053 ×2; 82550; 82553; 83735; 84484; 85025 ×2; 85610; 85730; 71045; 76705; 71275; G0378 ×2; J2250; J2270 ×2; J1644; J2710; J2001; J3010; J1885; J2543 ×2; J0330; J2704; Q9967

== ENCOUNTER → 2017-09-21 | Outpatient (CLI) | payer OTHER ==
[2017-09-21 09:08] LABS: Basophils % (A) 1 %; Eosinophils # (A) 0.1 k/uL (0-0.7); Eosinophils % (A) 1 %; HCT 45.5 % (39.0-53.0); HGB 15.9 gm/dL (13.0-17.5); Lymphocytes # (A) 2.3 k/uL (1.0-4.8); Lymphocytes % (A) 29 %; MCH 31.1 pg (25.0-35.0); MCHC 34.9 g/dL (31.0-37.0); MCV 89.1 fL (80.0-100.0); Mean Platelet Volume 7.8; Monocytes # (A) 0.6 k/uL (0-1.0); Monocytes % (A) 8 %; Neutrophils # (A) 4.5 k/uL (1.3-7.7); Neutrophils % (A) 58 %; Platelet Count 218 k/uL (150-450); RDW 12.3 % (11.5-15.5); WBC 7.8 k/uL (3.8-10.6)
[2017-09-21 09:42] LABS: ALT 76 U/L (21-72); AST 37 U/L (17-59); Albumin 4.6 g/dL (3.5-5.0); Alkaline Phosphatase 61 U/L (38-126); Anion Gap 13 mmol/L; Blood Urea Nitrogen 13 mg/dL (9-20); Calcium 9.7 mg/dL (8.4-10.2); Carbon Dioxide 26 mmol/L (22-30); Chloride 103 mmol/L (98-107); Glucose 120 mg/dL (74-99); Potassium 4.4 mmol/L (3.5-5.1); Sodium 142 mmol/L (137-145); Total Bilirubin 1.3 mg/dL (0.2-1.3); Total Protein 7.3 g/dL (6.3-8.2)
== END | disposition home or self-care (01) ==
LOC: LABWHC1 08:28
PROVIDERS: ATTEND Surgery
DX: K81.0 Acute cholecystitis (principal)
CPT/HCPCS: 36415; 80053; 85025

== ENCOUNTER 2017-09-27 09:58 | Observation (INO) | payer OTHER ==
[2017-09-27] MEDS ORDERED: RX INFO: IV CONTRAST WAS GIVEN 1 EACH MISC MISCELLANE PRN (10:49)
[2017-09-27] MEDS ORDERED: MORPHINE SULFATE 4 MG/ML SYRINGE IV STA (10:49)
[2017-09-27] MEDS ORDERED: SODIUM CHLORIDE 0.9% 1,000 ML IV STA ×2 (10:49)
[2017-09-27 11:14] LABS: Basophils # (A) 0.1 k/uL (0-0.2); Basophils % (A) 1 %; Eosinophils # (A) 0.1 k/uL (0-0.7); Eosinophils % (A) 1 %; HGB 16.5 gm/dL (13.0-17.5); Lymphocytes % (A) 30 %; MCH 31.1 pg (25.0-35.0); MCHC 34.4 g/dL (31.0-37.0); MCV 90.2 fL (80.0-100.0); Monocytes # (A) 0.5 k/uL (0-1.0); Monocytes % (A) 7 %; Neutrophils # (A) 3.9 k/uL (1.3-7.7); Neutrophils % (A) 59 %; Platelet Count 221 k/uL (150-450); RBC 5.32 m/uL (4.30-5.90); RDW 12.8 % (11.5-15.5); WBC 6.7 k/uL (3.8-10.6)
[2017-09-27 11:27] LABS: ALT 68 U/L (21-72); AST 45 U/L (17-59); Albumin 4.8 g/dL (3.5-5.0); Alkaline Phosphatase 60 U/L (38-126); Amylase 59 U/L (30-110); Anion Gap 13 mmol/L; Blood Urea Nitrogen 14 mg/dL (9-20); Calcium 9.7 mg/dL (8.4-10.2); Carbon Dioxide 24 mmol/L (22-30); Chloride 105 mmol/L (98-107); Glucose 102 mg/dL (74-99); Lipase 148 U/L (23-300); Potassium 4.9 mmol/L (3.5-5.1); Sodium 142 mmol/L (137-145); Total Bilirubin 1.5 mg/dL (0.2-1.3); Total Protein 7.4 g/dL (6.3-8.2)
--- NOTE | 2017-09-27 11:27 | XR ---
EXAMINATION TYPE: XR KUB DATE OF EXAM: 09/27/2017 COMPARISON: NONE HISTORY: Gallbladder surgery with abdominal TECHNIQUE: One view abdominal series FINDINGS: The osseous structures are intact. The bowel gas pattern is nonspecific. Lung bases are clear. Surg ical clips in the gallbladder fossa noted. Calcifications in pelvis are likely vascular. IMPRESSION: 1. Nonspecific abdomen.
--- NOTE | 2017-09-27 11:49 | CT ---
EXAMINATION TYPE: CT abdomen pelvis w con DATE OF EXAM: 09/27/2017 COMPARISON: NONE HISTORY: Rt side pain CT DLP: 849.2 mGycm Automated exposure control for dose reduction was used. TECHNIQUE: Helical acquisition of images was performed from the lung bases through the pelvis. CONTRAST: Performed without Oral Contrast and with IV Contrast, patient injected with 100 mL of Isovue 300. FINDINGS: LUNG BASES: No significant abnormality is appreciated. LIVER/GB: Liver is mildly hypoattenuated in comparison to that of the spleen suggesting mild hepatic steatosis. Postsurgical fat stranding and likely early fat necrosis is seen along the surgical tract from prior cholecystectomy anterior to the liver in the abdominal mesentery on series 3 image 18. No focal fluid collection is seen within the gallbladder fossa. Cholecystectomy clips are noted. 4 mm mm calculus is seen within the cystic duct remnant on series 8 image 37 and series 3 image 25. Common b ile duct is dilated up to 8 mm. PANCREAS: Pancreas enhances homogeneously without ductal dilatation. SPLEEN: No splenomegaly. ADRENALS: No significant abnormality is seen. KIDNEYS: Kidneys enhance and excrete symmetrically without hydronephrosis. FREE AIR: No free air is visualized. REPRODUCTIVE ORGANS: No significant abnormality is seen URINARY BLADDER: No significant abnormality is seen. ADENOPATHY: No greater than 1 cm short axis lymph nodes are seen within the abdomen or pelvis. OSSEOUS STRUCTURES: Very minimal degenerative changes of the lumbosacral spine are present. BOWEL: Amount retained colonic stool is seen within the ascending colon and transverse colon without dilatation. Colon measures up to 5.1 cm. Appendix is air-filled and within normal limits. Small varun l is nondilated.. IMPRESSION: 1. THERE IS A 4 MM CALCULUS WITHIN THE CYSTIC DUCT REMNANT AND DILATATION OF THE COMMON BILE DUCT UP TO 8 MM. 2. INFLAMMATORY CHANGE WITHIN THE VENTRAL ABDOMEN LIKELY RELATED TO THE POSTCHOLECYSTECTOMY STATUS PO SSIBLY EARLY FAT NECROSIS. 3. MODERATE AMOUNT RETAINED COLONIC STOOL ADJACENT TO THE INFLAMMATORY CHANGE, LIKELY COLONIC ILEUS W ITHOUT EVIDENCE OF OBSTRUCTION.
--- NOTE | 2017-09-27 11:58 | ED ---
General Adult HPI - General Chief complaint: Abdominal Pain Stated complaint: Abdominal pain, post gallbladder surgery Source: patient, RN notes reviewed, old records reviewed Mode of arrival: ambulatory Limitations: no limitations - History of Present Illness Initial comments: This is a 46-year-old male the ER for evaluation regarding abdominal pain, worsening abdominal pain for 2 days. Mild nausea no vomiting. No fevers. He does have positive history of recent gallbladder surgery. Surgery was done here at this hospital. Patient was feeling better until yesterday. Patient states the pain is progressively worsening it is diffuse periumbilical epigastric pain. - Related Data Home Medications Medication Instructions Recorded Confirmed Multivitamins, Thera [Multivitamin 1 tab PO DAILY 09/17/17 09/27/17 (formulary)] buPROPion XL [Wellbutrin XL] 300 mg PO DAILY 09/17/17 09/27/17 HYDROcodone/APAP 5-325MG [[place] 1 tab PO Q4HR PRN 09/27/17 09/27/17 5-325] Previous Rx's Medication Instructions Recorded Docusate [Colace] 100 mg PO DAILY #30 capsule 09/18/17 Allergies Allergy/AdvReac Type Severity Reaction Status Date / Time No Known Allergies Allergy Verified 09/27/17 10:16 Review of Systems ROS Statement: Those systems with pertinent positive or pertinent negative responses have been documented in the HPI. ROS Other: All systems not noted in ROS Statement are negative. Past Medical History Past Medical History: No Reported History History of Any Multi-Drug Resistant Organisms: None Reported Past Surgical History: Cholecystectomy Additional Past Surgical History / Comment(s): Tear duct replaced, Lasic 2017 Past Anesthesia/Blood Transfusion Reactions: No Reported Reaction Past Psychological History: Anxiety Smoking Status: Never smoker Past Alcohol Use History: Occasional Past Drug Use History: None Reported - Past Family History Father Family Medical History: Coronary Artery Disease (CAD), Diabetes Mellitus, Myocardial Infarction ([place]) Additional Family Medical History / Comment(s): Stents X2 General Exam Limitations: no limitations General appearance: alert, in no apparent distress Head exam: Present: atraumatic, normocephalic, normal inspection Eye exam: Present: normal appearance, PERRL, EOMI. Absent: scleral icterus, conjunctival injection, periorbital swelling ENT exam: Present: normal exam, mucous membranes moist Neck exam: Present: normal inspection. Absent: tenderness, meningismus, lymphadenopathy Respiratory exam: Present: normal lung sounds bilaterally. Absent: respiratory distress, wheezes, rales, rhonchi, stridor Cardiovascular Exam: Present: regular rate, normal rhythm, normal heart sounds. Absent: systolic murmur, diastolic murmur, rubs, gallop, clicks GI/Abdominal exam: Present: soft, tenderness (Diffuse), normal bowel sounds. Absent: distended, guarding, rebound, rigid Extremities exam: Present: normal inspection, full ROM, normal capillary refill. Absent: tenderness, pedal edema, joint swelling, calf tenderness Back exam: Present: normal inspection Neurological exam: Present: alert, oriented X3, CN II-XII intact Psychiatric exam: Present: normal affect, normal mood Skin exam: Present: warm, dry, intact, normal color. Absent: rash Course Vital Signs 09/27/17 10:10 Temperature 98.0 F Pulse Rate 101 H Respiratory 20 Rate Blood Pressure 143/94 O2 Sat by Pulse 98 Oximetry - Reevaluation(s) Reevaluation #1: 09/27/17 12:[address] Harp, Dr. Harp is aware. Reevaluation #2: 09/27/17 12:44 Patient still in significant pain Medical Decision Making - Medical Decision Making 46 male the ER with abdominal pain right flank pain postop. Patient does have positive choledocholithiasis with obstruction - Lab Data Result diagrams: 09/27/17 10:50 09/27/17 10:50 Lab Results 09/27/17 09/27/17 09/27/17 Range/Units 10:50 10:50 10:50 WBC 6.7 (3.8-10.6) k/uL RBC 5.32 (4.30-5.90) m/uL Hgb 16.5 (13.0-17.5) gm/dL Hct 48.0 (39.0-53.0) % MCV 90.2 (80.0-100.0) fL MCH 31.1 (25.0-35.0) pg MCHC 34.4 (31.0-37.0) g/dL RDW 12.8 (11.5-15.5) % Plt Count 221 (150-450) k/uL Neutrophils % 59 % Lymphocytes % 30 % Monocytes % 7 % Eosinophils % 1 % Basophils % 1 % Neutrophils # 3.9 (1.3-7.7) k/uL Lymphocytes # 2.0 (1.0-4.8) k/uL Monocytes # 0.5 (0-1.0) k/uL Eosinophils # 0.1 (0-0.7) k/uL Basophils # 0.1 (0-0.2) k/uL Sodium 142 (137-145) mmol/L Potassium 4.9 (3.5-5.1) mmol/L Chloride 105 (98-107) mmol/L Carbon Dioxide 24 (22-30) mmol/L Anion Gap 13 mmol/L BUN 14 (9-20) mg/dL Creatinine 0.87 (0.66-1.25) mg/dL Est GFR (CKD-EPI)AfAm >90 (>60 ml/min/1.73 sqM) Est GFR (CKD-EPI)NonAf >90 (>60 ml/min/1.73 sqM) Glucose 102 H (74-99) mg/dL Plasma Lactic Acid Sami 1.0 (0.7-2.0) mmol/L Calcium 9.7 (8.4-10.2) mg/dL Total Bilirubin 1.5 H (0.2-1.3) mg/dL AST 45 (17-59) U/L ALT 68 (21-72) U/L Alkaline Phosphatase 60 (38-126) U/L Total Protein 7.4 (6.3-8.2) g/dL Albumin 4.8 (3.5-5.0) g/dL Amylase 59 (30-110) U/L Lipase 148 (23-300) U/L - Radiology Data Radiology results: report reviewed (CT abdomen and pelvis shows positive bile duct stone with obstruction), image reviewed Disposition Clinical Impression: Choledocholithiasis with obstruction Disposition: ADMITTED IP TO THIS [facility] Condition: Good Is patient prescribed a controlled substance at d/c from ED?: No Referrals: Lele Guerin DO [Primary Care Provider] - 1-2 days
[2017-09-27] MEDS ORDERED: ONDANSETRON 4 MG/2 ML VIAL IVP PRN (12:43)
[2017-09-27] MEDS ORDERED: MORPHINE SULFATE 4 MG/ML SYRINGE IVP STA (12:43)
[2017-09-27] MEDS ORDERED: ONDANSETRON 4 MG/2 ML VIAL IVP STA (12:43)
[2017-09-27 13:19] VITALS: RESP 16
[2017-09-27 13:33] LABS: Appearance,Urine Clear (Clear); Bilirubin,Urine Negative (Negative); Blood,Urine Negative (Negative); Color,Urine Yellow; Glucose,Urine (UA) Negative (Negative); Ketones,Urine 1+ (Negative); Leukocyte Esterase,Urine Negative (Negative); Nitrite,Urine Negative (Negative); PH, Urine 6.5 (5.0-8.0); Protein,Urine Negative (Negative); Specific Gravity,Urine 1.041 (1.001-1.035); Urobilinogen,Urine <2.0 mg/dL (<2.0)
[2017-09-27] MEDS: MORPHINE SULFATE 4 MG/ML SYRINGE IVP PRN ×2 (14:18→19:14)
--- NOTE | 2017-09-27 17:35 | P.GSHP ---
History of Present Illness H&P Date: 09/27/17 Patient well-known to our service. He underwent laparoscopic cholecystectomy for acute calculus cholecystitis proximally 10 days ago. He did well for the first week or so after surgery but then 2 nights ago experienced recurrent pain in the right upper quadrant with radiation to the right chest and right back. This reminded him exactly of his initial presentation. He did have postoperatively after our last surgery a slight elevation of his liver enzymes. He came to the ER today for further evaluation. Bilirubin is slightly elevated however ALT AST and alkaline phosphatase are normal. CAT scan was performed to evaluate for bile leak however surprisingly on the CAT scan there is demonstration of a small stone at the cystic duct remnant right where it meets the common bile duct. No definite choledocholithiasis is seen. The patient has had no definite change in the color of his skin urine or stool. - Review of Systems Comment: The patient denies any acute changes in vision or hearing, no dysphagia or odynophagia, no chest pain or shortness of breath, no dysuria or hematuria, no headache, no runny nose, no rectal bleeding or melena, no unexplained weight loss Past Medical History Past Medical History: No Reported History History of Any Multi-Drug Resistant Organisms: None Reported Past Surgical History: Cholecystectomy Additional Past Surgical History / Comment(s): 09/17/17 Lap cholecystectomy, L tear duct replaced, bilateral eyes lasik surgery for vision correction in 2018 Past Anesthesia/Blood Transfusion Reactions: No Reported Reaction Smoking Status: Former smoker - Past Family History Father Family Medical History: Coronary Artery Disease (CAD), Diabetes Mellitus, Myocardial Infarction ([place]) Additional Family Medical History / Comment(s): Stents X2. Father had his [place] in his mid 50s. Mother Family Medical History: No Reported History Medications and Allergies Home Medications Medication Instructions Recorded Confirmed Type Multivitamins, Thera [Multivitamin 1 tab PO DAILY 09/17/17 09/27/17 History (formulary)] buPROPion XL [Wellbutrin XL] 300 mg PO DAILY 09/17/17 09/27/17 History Docusate [Colace] 100 mg PO DAILY #30 capsule 09/18/17 09/27/17 Rx HYDROcodone/APAP 5-325MG [[place] 1 tab PO Q4HR PRN 09/27/17 09/27/17 History 5-325] Allergies Allergy/AdvReac Type Severity Reaction Status Date / Time No Known Allergies Allergy Verified 09/27/17 10:16 Surgical - Exam Vital Signs Temp Pulse Resp BP Pulse Ox 98.0 F 101 H 20 143/94 98 09/27/17 10:10 09/27/17 10:10 09/27/17 10:10 09/27/17 10:10 09/27/17 10:10 Physical exam: General: Well-developed, well-nourished HEENT: Normocephalic, sclerae nonicteric Abdomen: Mild right upper quadrant tenderness, nondistended, incisions clean and dry Extremities: No edema Neuro: Alert and oriented Results - Labs 09/27/17 10:50 09/27/17 10:50 Abnormal Lab Results - Last 24 Hours (Table) 09/27/17 09/27/17 Range/Units 10:50 10:50 Glucose 102 H (74-99) mg/dL Total Bilirubin 1.5 H (0.2-1.3) mg/dL Ur Specific [place] 1.041 H (1.001-1.035) Urine Ketones 1+ H (Negative) Diabetes panel 09/27/17 Range/Units 10:50 Sodium 142 (137-145) mmol/L Potassium 4.9 (3.5-5.1) mmol/L Chloride 105 (98-107) mmol/L Carbon Dioxide 24 (22-30) mmol/L BUN 14 (9-20) mg/dL Creatinine 0.87 (0.66-1.25) mg/dL Glucose 102 H (74-99) mg/dL Calcium 9.7 (8.4-10.2) mg/dL AST 45 (17-59) U/L ALT 68 (21-72) U/L Alkaline Phosphatase 60 (38-126) U/L Total Protein 7.4 (6.3-8.2) g/dL Albumin 4.8 (3.5-5.0) g/dL Calcium panel 09/27/17 Range/Units 10:50 Calcium 9.7 (8.4-10.2) mg/dL Albumin 4.8 (3.5-5.0) g/dL Pituitary panel 09/27/17 Range/Units 10:50 Sodium 142 (137-145) mmol/L Potassium 4.9 (3.5-5.1) mmol/L Chloride 105 (98-107) mmol/L Carbon Dioxide 24 (22-30) mmol/L BUN 14 (9-20) mg/dL Creatinine 0.87 (0.66-1.25) mg/dL Glucose 102 H (74-99) mg/dL Calcium 9.7 (8.4-10.2) mg/dL Adrenal panel 09/27/17 Range/Units 10:50 Sodium 142 (137-145) mmol/L Potassium 4.9 (3.5-5.1) mmol/L Chloride 105 (98-107) mmol/L Carbon Dioxide 24 (22-30) mmol/L BUN 14 (9-20) mg/dL Creatinine 0.87 (0.66-1.25) mg/dL Glucose 102 H (74-99) mg/dL Calcium 9.7 (8.4-10.2) mg/dL Total Bilirubin 1.5 H (0.2-1.3) mg/dL AST 45 (17-59) U/L ALT 68 (21-72) U/L Alkaline Phosphatase 60 (38-126) U/L Total Protein 7.4 (6.3-8.2) g/dL Albumin 4.8 (3.5-5.0) g/dL Assessment and Plan (1) Abdominal pain Narrative/Plan: Suspect choledocholithiasis as the etiology of his pain. The stone present on CAT scan may be floating in the bile duct and is just currently seen at the junction with the cystic duct. Favor ERCP with sphincterotomy. Case was discussed with GI and currently plans are underway for ERCP tomorrow. Will repeat labs tomorrow. On CAT scan patient also with some constipation. We'll order some stool softeners today. Current Visit: Yes Status: Acute Code(s): R10.9 - UNSPECIFIED ABDOMINAL PAIN SNOMED Code(s): 39852050
[2017-09-27] MEDS ORDERED: MAGNESIUM CITRATE 296 ML BOTTLE PO ONE (17:36)
[2017-09-28] MEDS: HEPARIN SODIUM,PORCINE 5,000 UNIT/ML 1 ML VIAL SQ SCH ×3 (01:16→17:30)
[2017-09-28 08:24] LABS: Basophils % (A) 1 %; Eosinophils # (A) 0.1 k/uL (0-0.7); Eosinophils % (A) 1 %; HCT 48.9 % (39.0-53.0); HGB 16.1 gm/dL (13.0-17.5); Lymphocytes # (A) 1.5 k/uL (1.0-4.8); Lymphocytes % (A) 28 %; MCH 30.4 pg (25.0-35.0); MCV 92.2 fL (80.0-100.0); Mean Platelet Volume 8.2; Monocytes # (A) 0.5 k/uL (0-1.0); Monocytes % (A) 9 %; Neutrophils # (A) 3.1 k/uL (1.3-7.7); Neutrophils % (A) 60 %; Platelet Count 226 k/uL (150-450); RBC 5.31 m/uL (4.30-5.90); RDW 12.6 % (11.5-15.5); WBC 5.3 k/uL (3.8-10.6)
[2017-09-28 08:45] LABS: ALT 148 U/L (21-72); AST 96 U/L (17-59); Albumin 4.3 g/dL (3.5-5.0); Alkaline Phosphatase 74 U/L (38-126); Amylase 45 U/L (30-110); Anion Gap 11 mmol/L; Blood Urea Nitrogen 8 mg/dL (9-20); Calcium 9.1 mg/dL (8.4-10.2); Carbon Dioxide 25 mmol/L (22-30); Chloride 105 mmol/L (98-107); Glucose 104 mg/dL (74-99); Lipase 111 U/L (23-300); Potassium 4.5 mmol/L (3.5-5.1); Sodium 141 mmol/L (137-145); Total Bilirubin 1.1 mg/dL (0.2-1.3); Total Protein 6.8 g/dL (6.3-8.2)
[2017-09-28] MEDS ORDERED: buPROPion XL 300 MG TAB.ER.24H PO SCH (09:00)
[2017-09-28] MEDS ORDERED: DOCUSATE 100 MG CAP PO SCH (09:00)
--- NOTE | 2017-09-28 09:14 | P.CONS ---
History of Present Illness - Reason for Consult Consult date: 09/28/17 Abdominal pain retained gallstone Requesting physician: Miguel Cruz - History of Present Illness 46-year-old male postop day #11 laparoscopic cholecystectomy for calculus cholecystitis. Patient was discharged in satisfactory condition. 2 days ago he developed moderate abdominal pain in the midepigastric right upper quadrant radiating up to the right shoulder similar to his pain prior to cholecystectomy without fever. Discharge LFTs 09/21/17; TB 1.3. AST 37. ALT 76. AP 61. Admission LFTs; total bilirubin 1.5. AST 45. ALT 60. AP 60. This morning AST 96. ALT 148. AP 74. TB 1.1. Lipase 111. White count 5.3. Hemoglobin 16.1. Still reports mild abdominal discomfort but not as severe. CT abdomen and pelvis reported a retained gallstone possibly in the cystic duct remnant possible common bile duct. Review of Systems Constitutional: Denies fever, chills, sweats, weight gain, or loss. HEENT: Negative for migraines, blurred vision or loss, earaches, drainage, tinnitus, oral mucosal lesions, dysphagia, or odynophagia. Cardiac: Negative for chest pain, arrhythmias, or palpitation. Respiratory: Negative for shortness of breath, hemoptysis, cough, or sputum production. Gastrointestinal: See HPI for pertinent findings. Genitourinary: Negative for hematuria, urgency, frequency, polyuria, dysuria, or penile discharge. Musculoskeletal: Negative for muscle aches, swelling, arthritis, and arthralgias. Neurologic: Negative for stroke or TIA. Endocrine: Negative for thyroid problems. Skin: Negative for rash or itching. Psychiatric: Negative history for depression and anxiety Past Medical History Past Medical History: No Reported History History of Any Multi-Drug Resistant Organisms: None Reported Past Surgical History: Cholecystectomy Additional Past Surgical History / Comment(s): 09/17/17 Lap cholecystectomy, L tear duct replaced, bilateral eyes lasik surgery for vision correction in 2018 Past Anesthesia/Blood Transfusion Reactions: No Reported Reaction Smoking Status: Former smoker - Past Family History Father Family Medical History: Coronary Artery Disease (CAD), Diabetes Mellitus, Myocardial Infarction ([place]) Additional Family Medical History / Comment(s): Stents X2. Father had his [place] in his mid 50s. Mother Family Medical History: No Reported History Medications and Allergies Home Medications Medication Instructions Recorded Confirmed Type Multivitamins, Thera [Multivitamin 1 tab PO DAILY 09/17/17 09/27/17 History (formulary)] buPROPion XL [Wellbutrin XL] 300 mg PO DAILY 09/17/17 09/27/17 History Docusate [Colace] 100 mg PO DAILY #30 capsule 09/18/17 09/27/17 Rx HYDROcodone/APAP 5-325MG [[place] 1 tab PO Q4HR PRN 09/27/17 09/27/17 History 5-325] Lisdexamfetamine Dimesylate 40 mg PO DAILY 09/28/17 09/28/17 History [Vyvanse] Allergies Allergy/AdvReac Type Severity Reaction Status Date / Time No Known Allergies Allergy Verified 09/27/17 10:16 Physical Exam Vitals: Vital Signs Temp Pulse Pulse Resp BP BP Pulse Ox 09/27/17 21:29 98.0 F 91 16 130/76 98 09/27/17 13:35 97.7 F 72 16 135/86 100 09/27/17 13:19 98.2 F 77 16 141/91 98 09/27/17 10:10 98.0 F 101 H 20 143/94 98 Intake and Output 09/27/17 09/28/17 09/28/17 22:59 06:59 14:59 Intake Total 200 Balance 200 Intake: Intake, IV Titration 200 Amount Sodium Chloride 0.9% 1, 200 000 ml @ 100 mls/hr IV . Q10H STA Rx#:[id number] Other: Voiding Method Toilet Toilet # Voids 2 2 General appearance: The patient is alert, oriented, in no acute distress. HET: Head is normocephalic and atraumatic. Pupils are equal and reactive. Oropharynx is clear without lesions. Neck: Supple without lymphadenopathy. Trachea midline. Heart: S1 S2. Regular rate and rhythm. Lungs: No crackles or wheezes are heard. Abdomen: Soft, mild midepigastric right upper quadrant tenderness laparoscopic incisions healing without erythema or drainage, nondistended with bowel sounds. No peritoneal signs. No palpable organomegaly or masses. Extremities: Normal skin color and turgor. No cyanosis, rash, ulceration, clubbing, or edema. Radial and pedal pulses are 2/4 bilaterally. Neurological: No focal deficits. Strength and sensation are grossly intact. Results CBC & Chem 7: 09/28/17 07:44 09/28/17 07:44 Labs: Abnormal Lab Results - Last 24 Hours (Table) 09/27/17 09/27/17 Range/Units 10:50 10:50 Glucose 102 H (74-99) mg/dL Total Bilirubin 1.5 H (0.2-1.3) mg/dL Ur Specific [place] 1.041 H (1.001-1.035) Urine Ketones 1+ H (Negative) Microbiology - Last 24 Hours (Table) 09/27/17 10:50 Urine Culture - Preliminary Urine,Clean Catch CT scan - abdomen: report reviewed (Dr. Grullon) Assessment and Plan (1) Abdominal pain Narrative/Plan: Secondary to retained gallstone possibly in the cystic duct possible common bile duct Current Visit: Yes Status: Acute Code(s): R10.9 - UNSPECIFIED ABDOMINAL PAIN SNOMED Code(s): 99658713 (2) S/P cholecystectomy Current Visit: Yes Status: Acute Code(s): Z90.49 - ACQUIRED ABSENCE OF OTHER SPECIFIED PARTS OF DIGESTIVE TRACT SNOMED Code(s): 719267222 (3) Choledocholithiasis with obstruction Current Visit: Yes Status: Acute Code(s): K80.51 - CALCULUS OF BILE DUCT W/ O CHOLANGITIS OR CHOLECYST W OBST SNOMED Code(s): 2314087 (4) Transaminitis Narrative/Plan: Secondary to retained gallstone Current Visit: Yes Status: Acute Code(s): R74.0 - NONSPEC ELEV OF LEVELS OF TRANSAMNS & LACTIC ACID DEHYDRGNSE SNOMED Code(s): 512057698 Plan: 1. ERCP. The group leader wafer polishing has discussed the risks, benefits and alternative therapies for the above-mentioned procedure and for both sedation/analgesia as well as necessary blood product administration, if indicated, as they pertain to this patient. The patient has indicated understanding and acceptance of the risks and procedures discussed. Thank you for this kind referral and the opportunity to participate in the care of your patient. This consultation was discussed with Dr. Grullon. The impression and plan of care have been directed as dictated.
[2017-09-28] MEDS ORDERED: ACETAMINOPHEN TAB 325 MG TAB PO PRN (09:39)
[2017-09-28] MEDS ORDERED: LISDEXAMFETAMINE DIMESYLATE 40 MG PO SCH (09:45)
[2017-09-28 11:34] VITALS: BMI 27.8
[2017-09-28] MEDS ORDERED: MULTIVITAMINS, THERA 1 EACH TAB PO SCH (12:00)
[2017-09-28] MEDS ORDERED: LEVOFLOXACIN 500MG-D5W PMX 500 MG in DEXTROSE/WATER 1 100ML.BAG IVPB ONE (14:00)
[2017-09-28] MEDS ORDERED: INDOMETHACIN 50MG SUPPOSITORY RECTAL ONE (14:00)
--- NOTE | 2017-09-28 14:34 | P.PN ---
Subjective Progress Note Date: 09/28/17 Principal diagnosis: Choledocholithiasis Patient says his pain is minimal today. Down to a 1 out of 10. Liver enzymes are slightly elevated. Scheduled for ERCP today. Objective - Vital Signs Vital signs: Vital Signs Temp 97.8 F 09/28/17 07:14 Pulse 69 09/28/17 07:14 Resp 16 09/28/17 07:14 BP 125/78 09/28/17 07:14 Pulse Ox 98 09/28/17 07:14 Intake & Output 09/27/17 09/28/17 09/28/17 18:59 06:59 18:59 Intake Total 200 Balance 200 Weight 92.986 kg 92.986 kg Intake: Intake, IV Titration 200 Amount Sodium Chloride 0.9% 1, 200 000 ml @ 100 mls/hr IV . Q10H STA Rx#:[id number] Other: Voiding Method Toilet Toilet Toilet # Voids 2 - Exam Abdomen: Soft, nondistended, mild right upper quadrant tenderness - Labs CBC & Chem 7: 09/28/17 07:44 09/28/17 07:44 Labs: Abnormal Lab Results - Last 24 Hours (Table) 09/28/17 Range/Units 07:44 BUN 8 L (9-20) mg/dL Glucose 104 H (74-99) mg/dL AST 96 H (17-59) U/L ALT 148 H (21-72) U/L Microbiology - Last 24 Hours (Table) 09/27/17 10:50 Urine Culture - Preliminary Urine,Clean Catch Assessment and Plan (1) Abdominal pain Narrative/Plan: Await ERCP today. Ambulate. Anticipate possible discharge after the ERCP is performed. Outpatient labs to be performed early next week. Current Visit: Yes Status: Acute Code(s): R10.9 - UNSPECIFIED ABDOMINAL PAIN SNOMED Code(s): 05537619
[2017-09-28] MEDS ORDERED: GLUCAGON 1 MG/ML VIAL ONE (14:58)
[2017-09-28] MEDS ORDERED: LIDOCAINE 1% INJ 10MG/ML (20 ML MDV) ONE (14:58)
[2017-09-28] MEDS ORDERED: GLYCOPYRROLATE 0.2 MG/ML 2 ML VIAL ONE (14:58)
[2017-09-28] MEDS ORDERED: PROPOFOL 10 MG/ML 20 ML VIAL IV ONE (14:58)
[2017-09-28] MEDS ORDERED: IV FLUID CONTINUATION 1,000 ML IV ONE (14:59)
[2017-09-28] MEDS ORDERED: IOPAMIDOL-300 50ML BTL MISCELLANE ONE (15:30)
[2017-09-28 15:42] VITALS: TEMP 97.9
[2017-09-28] MEDS ORDERED: SODIUM CHLORIDE 0.9% 1,000 ML IV ONE (16:03)
--- NOTE | 2017-09-28 16:31 | FL ---
EXAMINATION TYPE: FL ERCP biliary duct only DATE OF EXAM: 09/28/2017 COMPARISON: CT abdomen pelvis w con HISTORY: Retained stone following cholecystectomy Fluoroscopy support supplied to the referring clinician. See dictated report from gastroenterology, 5.14 minutes fluoroscopy time supplied, 2 intraoperative C-arm images document the procedure
--- NOTE | 2017-09-28 16:40 | P.PCN ---
Date of Procedure: 09/28/17 Procedure(s) Performed: Procedure: Endoscopic retrograde cholangiopancreatography ERCP. Preoperative diagnosis: Suspected common bile duct stone. Postoperative diagnosis: Normal Pancreatic duct. Common bile duct slightly dilated but no filling defects to suggest retained common bile duct stone. Preparation sedation: Was provided by anesthesia. Brief clinical history: The patient is a 46-year-old male postop day #11 laparoscopic cholecystectomy for calculus cholecystitis. Patient was discharged in satisfactory condition. 2 days ago he developed moderate abdominal pain in the midepigastric right upper quadrant radiating up to the right shoulder similar to his pain prior to cholecystectomy without fever. Discharge LFTs 09/21/17; TB 1.3. AST 37. ALT 76. AP 61. This admission LFTs: total bilirubin 1.5. AST 45. ALT 60. AP 60. This morning AST 96. ALT 148. AP 74. TB 1.1. Lipase 111. White count 5.3. Hemoglobin 16.1. Still reports mild abdominal discomfort but not as severe. CT abdomen and pelvis reported a retained gallstone possibly in the cystic duct remnant possible common bile duct. Procedure: With the patient in the prone position and after informed consent and adequate sedation, I passed the Olympus video duodenoscope down the esophagus into the stomach then passed through the pylorus into the duodenum. I was not able to locate the papilla despite various maneuvers and we had to move into the left lateral decubitus position which was a difficult position to cannulate but allowed locating the papilla.
[2017-09-28 17:30] VITALS: BP 134/88; PULSE 72
== END 2017-09-28 18:00 | disposition home or self-care (01) ==
LOC: EC 09:58 → 5MS5E 12:42
PROVIDERS: ADMIT Surgery; ATTEND Surgery
DX: R10.11 Right upper quadrant pain (principal); K83.8 Other specified diseases of biliary tract; K59.00 Constipation, unspecified; F41.9 Anxiety disorder, unspecified; E80.7 Disorder of bilirubin metabolism, unspecified; Z90.49 Acquired absence of other specified parts of digestive tract; Z79.899 Other long term (current) drug therapy; Z87.891 Personal history of nicotine dependence; Z83.3 Family history of diabetes mellitus; Z82.49 Family history of ischemic heart disease and other diseases of the circulatory system
CPT/HCPCS: 99285 ×2; 96374 ×2; 96361 ×6; 96376; 96375; 36415; 80053 ×2; 82150 ×2; 83605; 83690 ×2; 85025 ×2; 81003; 87086; 74328; 74018; 74177; 43260; G0378 ×2; J2270; J1610; J2405; J1956; J2001; J2704; Q9967 ×2

== ENCOUNTER → 2017-10-01 | Outpatient (CLI) | payer OTHER ==
[2017-10-01 07:58] LABS: Basophils % (A) 1 %; Eosinophils # (A) 0.1 k/uL (0-0.7); Eosinophils % (A) 2 %; HCT 48.7 % (39.0-53.0); HGB 15.5 gm/dL (13.0-17.5); Lymphocytes # (A) 1.2 k/uL (1.0-4.8); Lymphocytes % (A) 26 %; MCH 29.9 pg (25.0-35.0); MCHC 31.9 g/dL (31.0-37.0); MCV 93.8 fL (80.0-100.0); Mean Platelet Volume 8.1; Monocytes # (A) 0.3 k/uL (0-1.0); Monocytes % (A) 7 %; Neutrophils # (A) 2.9 k/uL (1.3-7.7); Neutrophils % (A) 63 %; Platelet Count 218 k/uL (150-450); RBC 5.19 m/uL (4.30-5.90); RDW 12.8 % (11.5-15.5); WBC 4.6 k/uL (3.8-10.6)
[2017-10-01 08:06] LABS: Albumin 4.5 g/dL (3.5-5.0); Alkaline Phosphatase 192 U/L (38-126); Anion Gap 15 mmol/L; Blood Urea Nitrogen 7 mg/dL (9-20); Calcium 9.6 mg/dL (8.4-10.2); Carbon Dioxide 23 mmol/L (22-30); Chloride 106 mmol/L (98-107); Glucose 135 mg/dL (74-99); Sodium 144 mmol/L (137-145); Total Bilirubin 4.9 mg/dL (0.2-1.3); Total Protein 7.4 g/dL (6.3-8.2)
[2017-10-01 08:14] LABS: ALT 1411 U/L (21-72); AST 768 U/L (17-59)
== END | disposition home or self-care (01) ==
LOC: LABWHC1 07:28
PROVIDERS: ATTEND Surgery
DX: K81.9 Cholecystitis, unspecified (principal)
CPT/HCPCS: 36415; 80053; 85025

== ENCOUNTER → 2019-06-17 | Outpatient (CLI) | payer OTHER ==
--- NOTE | 2019-06-17 10:41 | XR ---
Right ankle and right foot HISTORY: Pain, trauma 3 views of the right ankle and 3 views of the right foot. Soft tissue swelling is noted at the ankle. Alignment, joint spaces are maintained. Small ossific den sities are present at the anterior aspect of the distal tibia at the level of the tibiotalar joint, s ome distortion may represent some chronic injury. Small crescentic density also present lateral to th e proximal cuboid is indeterminate and may represent small chip fracture IMPRESSION: Suspect remote trauma to the anterior aspect of the distal tibia, correlate for point ten derness, small ossific densities may represent small chip fractures of indeterminate age. No dislocat ion.
== END | disposition home or self-care (01) ==
LOC: RADXRMAIN 07:44
PROVIDERS: ATTEND Family Medicine
DX: M79.89 Other specified soft tissue disorders (principal); M79.671 Pain in right foot; M25.571 Pain in right ankle and joints of right foot

== ENCOUNTER → 2020-04-15 | Outpatient (CLI) | payer BC | END | disposition home or self-care (01) | LOC: LABWHC1 16:09 | PROVIDERS: ATTEND Family Medicine | DX: Z03.818 Encounter for observation for suspected exposure to other biological agents ruled out (principal) | CPT/HCPCS: U0003; C9803 ==

== ENCOUNTER → 2020-05-26 | Outpatient (CLI) | payer BC ==
--- NOTE | 2020-05-26 06:59 | MR ---
EXAMINATION TYPE: MR lumbar spine wo con DATE OF EXAM: 05/26/2020 COMPARISON: MRI lumbar spine December 22, 2013. Lumbar spine x-ray April 19, 2020 HISTORY: Lumbar spine pain per order. Back pain causing numbness in both legs for 25 years along with pain into bilateral lower extremities per patient. TECHNIQUE: Multiplanar, multisequence imaging of the lumbar spine is performed without IV contrast. FINDINGS: Sagittal images of the lumbar spine show vertebral body heights and alignment to remain sat isfactory. Multilevel disc desiccation shows interval progression from 2014 MRI. Disc space heights a re maintained. The conus medullaris remains normal in position and has normal signal currently endin g at mid L1 level. The bone marrow signal intensity is within normal limits on current exam. Axial images show the T12-L1 and L1-L2 levels to appear within normal limits. Axial images at L2-L3 levels mild broad disc bulge but the spinal canal is preserved. Axial images at L3-L4 level [id number] broad disc bulge with left or central disc protrusion co mponent and mild facet degenerative changes and ligamenta flava hypertrophy, there is effacement of t he anterolateral thecal sac and left lateral recess. There is moderate left and mild right-sided ante roinferior neural foraminal narrowing. No significant change from prior. Axial images at the L4-L5 level show mild facet degenerative changes bilaterally. There is broad disc bulge with broad-based central disc protrusion component effacing the anterior thecal sac on axial i mage 10, there is [id number] bilateral neural foraminal narrowing. Axial images at the L5-S1 level moderate facet degenerative changes bilaterally. There is focal centr al disc protrusion without spinal canal preserved. There is left foraminal component causing moderate left-sided neural foraminal narrowing similar to prior. Mild right-sided neural foraminal narrowing is seen. Paraspinal muscle bulk is preserved. IMPRESSION: Multilevel degenerative changes in the mid to lower lumbar spine as detailed above. No si gnificant change or progression from the 2014 MRI.
== END | disposition home or self-care (01) ==
LOC: RADMRIMAIN 06:03
PROVIDERS: ATTEND Orthopaedic Surgery
DX: M47.816 Spondylosis without myelopathy or radiculopathy, lumbar region (principal); M47.817 Spondylosis without myelopathy or radiculopathy, lumbosacral region
CPT/HCPCS: 72148

== ENCOUNTER 2020-06-15 06:13 | Day surgery (SDC) | payer BC ==
[2020-06-15 06:44] VITALS: RESP 16; TEMP 97.7
[2020-06-15] MEDS ORDERED: IOPAMIDOL M200 10 ML VIAL ONE (06:57)
[2020-06-15] MEDS ORDERED: DEXAMETHASONE SOD PHOSPHATE 10 MG/ML 1 ML VIAL ONE (06:57)
[2020-06-15] MEDS ORDERED: LIDOCAINE 1% INJ 10MG/ML (20 ML MDV) ONE (06:57)
--- NOTE | 2020-06-15 07:16 | P.PCN ---
Date of Procedure: 06/15/20 Description of Procedure: PREOPERATIVE DIAGNOSIS: Lumbar radiculopathy POSTOPERATIVE DIAGNOSIS: Lumbar radiculopathy Attending physician: Lefty Pretty M.D. PROCEDURE 1. Transforaminal epidural steroid injection under fluoroscopic guidance bilateral L4-5 2. Lumbar epidurogram ANESTHESIA: Local with 1% lidocaine 3 ml PROCEDURE INDICATION: The patient with low back pain and radiculopathy symptoms unresponsive to conservative treatment. Fluoroscopy was used for the procedure and fluoroscopic images were saved to the radiology portion of patient's chart. PROCEDURE DESCRIPTION / TECHNIQUE: The patient was seen and identified in the preoperative area. Risks, benefits, complications, and alternatives were discussed with the patient. The patient agreed to proceed with the procedure and signed the consent. IV was started, and vital signs were stable. Patient was taken to the OR and time out was completed. The patient was placed in the prone position on procedure table and a pillow was placed under the abdomen to reduce lumbar lordosis. The lumbosacral area was prepped and draped in the usual sterile fashion. Vital signs were closely monitored during the procedure. Conscious sedation was used. Using oblique fluoroscopy, the chin of the ``Tomy dog and the skin and deeper tissues just below was localized with 1% lidocaine. Subsequently, a 22- gauge 5-inch spinal needle was advanced under a tunneled view fluoroscopic guidance just underneath the chin of the ``Tomy dog . Under lateral fluoroscopy, the needle was then advanced to the posterior border of the foramen. After negative aspiration of CSF and blood and with no paresthesias, 1 mL of Isovue-200 contrast dye was injected under live fluoroscopy and there was no evidence of intravascular injection. The injectate solution consisting of 5 mg of dexamethasone with 1.5 mL of 1% lidocaine was then delivered. The needle was withdrawn intact. Procedure was repeated on the other side for a total of 10 mg of dexamethasone given. At the end of the procedure, skin was cleansed, and bandages were applied. COMPLICATIONS: None COMMENTS: DISPOSITION / PLANS: The patient was placed in a supine position and transferred to the recovery area in a stable condition for observation. There was no evidence of lower extremity motor or sensory deficit after the procedure. Patient was discharged from the recovery room after meeting discharge criteria. Home discharge instructions were given to the patient by the staff. The patient will follow up for repeat procedure in 2-4 weeks.
[2020-06-15 07:24] VITALS: BP 147/89; PULSE 72
--- NOTE | 2020-06-15 08:30 | FL ---
Fluoroscopy HISTORY: Pain 14 seconds fluoroscopy time supplied to the referring clinician. 2 intraoperative C-arm images docum ent the procedure. See dictated report from anesthesia.
== END 2020-06-15 07:40 | disposition home or self-care (01) ==
LOC: ORPAIN 06:13
PROVIDERS: ATTEND Anesthesiology
DX: M54.16 Radiculopathy, lumbar region (principal)
CPT/HCPCS: 64483; J1100; J2001; Q9966

== ENCOUNTER 2020-07-06 06:58 | Day surgery (SDC) | payer BC ==
[2020-07-02 14:52] VITALS: BMI 29.1
[~2020-07-06 06:58] MED LIST: LACTATED RINGERS 1,000 ML IV SCH
[2020-07-06 07:14] VITALS: TEMP 96.8
[2020-07-06] MEDS ORDERED: IOPAMIDOL M200 10 ML VIAL ONE (07:50)
[2020-07-06] MEDS ORDERED: methylPREDNISolone ACETATE 40 MG/ML 1 ML VIAL ONE (07:50)
--- NOTE | 2020-07-06 08:09 | P.PCN ---
Date of Procedure: 07/06/20 Procedure(s) Performed: PREOPERATIVE DIAGNOSIS:1- Lumbar radiculopathy . 2-lumbar degenerative disc disease. 3-lumbar spondylosis with lumbar facet arthropathy POSTOPERATIVE DIAGNOSIS: Same as preoperative diagnoses. PROCEDURE 1. Transforaminal epidural steroid injection under fluoroscopic guidance at bilateral L4-5 level. (Fluoroscopy images stored on file in the radiology Department ) 2. Lumbar epidurogram . ANESTHESIA: Local with 1% lidocaine 4 ml only. EBL: Minimal PROCEDURE INDICATION: The patient with low back pain and radiculopathy symptoms unresponsive to conservative treatment. PROCEDURE DESCRIPTION / TECHNIQUE: The patient was seen and identified in the preoperative area. Risks, benefits, complications, and alternatives were discussed with the patient. The patient agreed to proceed with the procedure and signed the consent. IV was started, and vital signs were stable. Patient was taken to the OR and time out was completed. The patient was placed in the prone position on procedure table and a pillow was placed under the abdomen to reduce lumbar lordosis. The lumbosacral area was prepped and draped in the usual sterile fashion. Critical pause was taken. Vital signs were closely monitored during the procedure.. Using oblique fluoroscopy, the chin of the ``Tomy dog at L4-5 level was identified, and the skin and deeper tissues just below was localized with 1% lidocaine. Subsequently, a 22-gauge 3.5-inch spinal needle was advanced under a tunneled view fluoroscopic guidance just underneath the chin of the ``Tomy dog at the right L4-5 Under lateral fluoroscopy, the needle was then advanced to the posterior border of the interforaminal space. After negative aspiration of CSF and blood and with no paresthesias, 1 mL Isovue 200 contrast dye was injected excellent epidurogram and outlining of the nerve root Subsequently, 3 mL of block solution containing 40 mg Depo-Medrol and 2 mL of 0.9% normal saline PF was injected. Needle was removed and the same procedure was repeated at the left L4-5 level (s). At the end of the procedure, skin was cleansed, and bandages were applied. COMPLICATIONS:none DISPOSITION / PLANS: The patient was placed in a supine position and transferred to the recovery area in a stable condition for observation. There was no evidence of lower extremity motor or sensory deficit after the procedure. Patient was discharged from the recovery room after meeting discharge criteria. Home discharge instructions were given to the patient by the staff. The patient was reexamined prior to discharge.
[2020-07-06 08:13] VITALS: RESP 16
[2020-07-06 08:27] VITALS: BP 124/85; PULSE 69
--- NOTE | 2020-07-06 10:07 | FL ---
EXAMINATION TYPE: FL guided pain mgmt statistic DATE OF EXAM: 07/06/2020 HISTORY: Fluoroscopy time 8 seconds of fluoroscopy provided. IMPRESSION: 1. Fluoroscopy time.
== END 2020-07-06 08:30 | disposition home or self-care (01) ==
LOC: ORPAIN 06:58
PROVIDERS: ATTEND Specialist
DX: M51.16 Intervertebral disc disorders with radiculopathy, lumbar region (principal); M47.26 Other spondylosis with radiculopathy, lumbar region
CPT/HCPCS: 64483; J1030; Q9966

== ENCOUNTER → 2020-08-18 | Outpatient (CLI) | payer BC ==
[2020-08-18 08:34] VITALS: BP 144/93; PULSE 81; RESP 16; TEMP 97.9
--- NOTE | 2020-08-18 08:46 | P.PN ---
Subjective Progress Note Date: 08/18/20 This is a follow-up visit for this 49 years old male with a chronic history of severe low back pain with radiation to the lower extremity bilaterally, he is diagnosed with lumbar radiculopathy, lumbar degenerative disc disease, lumbar spondylosis with lumbar facet arthropathy, recently we have done a trans foraminal epidural steroid injection at L4 5 bilaterally, patient reported that he get pain relief for 1-2 days only, he continued to have severe pain, intensity of the pain increased with any activity, he denies any motor or sensory deficit, he denies any fever or night sweats and there is no change in the bowel movement or urination, intensity of the pain interfere with the quality of life Objective - Vital Signs Vital signs: Vital Signs Temp 97.9 F 08/18/20 08:30 Pulse 81 08/18/20 08:30 Resp 16 08/18/20 08:30 BP 144/93 08/18/20 08:30 Pulse Ox 99 08/18/20 08:30 Intake & Output 08/17/20 08/18/20 08/18/20 18:59 06:59 18:59 Weight 99.79 kg - Exam Physical Examinations : -Constitutiona : Cooperative , not in acute distress . -HEENT : nech : supple , no Lymphadenopathy , normal thyroid size . : eyes : no ptosis , no icterus, no photophobia . - neurologic : Cranial nerve II to XII intact , no focal neurological deffecit . -psychatric : alert , oriented X 3 , appropriate affect , intact judgment and insight . -Lymphatic : no Lymphadenopathy . - musculoskeltal : Lumber spine moter stegnth lower extremities ,thigh and legs 5/5 Right side , 5/5 Left side Normal sensation in the lower extremity bilaterally deep tendon reflexes : normal Knee Jerk , normal ankle Jerk lumber facet Loading Test =positive Right , positive Left Range of motion of the lumbar spine Flexion 30 degrees, extension 10 degrees strait leg raising test = positive at 45 degree right side and is negative on the left side Fabere test= positive Right , and positive LT . Sever tenderness over the Sacroiliac joint on the Right , and Left sides Gaenslen test= positive right ,and positive left . Seated flexion test= positive right ,and positive Left . Assessment and Plan Plan: Assessment and plan=1-lumbar radiculopathy. 2-lumbar degenerative disc disease. 3-lumbar spondylosis with lumbar facet arthropathy. Patient had short-term benefit after transforaminal epidural steroid injection at L4 5 x2 , Patient could benefit from lumbar epidural steroid injection at L4-L5 (interlaminar approach ) After the injection patient will follow up with Dr. Armas for evaluation - PQRS measures = - Patient's medications are documented in the chart. -Tobacco use is negative and counseling.Given. -Patient's has not received pneumococcal vaccine. -Advanced care planning discussed, patient not eligible. -Opiate contract not signed. -Pain positive and follow-up visit/procedure is scheduled. -Patient's blood pressure measured [ 144/90 straight ] , and documented in the record ,and patient will follow up with the primary care. -Patient's weight was measured and body mass index [ 29.8 ] above the normal limits and counseling was done. and patient instructed to follow-up with the primary care physician. -Patient was not identified as an unhealthy alcohol user Time with Patient: Less than 30
== END ==
LOC: PNWHC3 08:05
PROVIDERS: ATTEND Specialist
DX: M47.26 Other spondylosis with radiculopathy, lumbar region (principal); M51.36 Other intervertebral disc degeneration, lumbar region; Z87.891 Personal history of nicotine dependence
CPT/HCPCS: 99211

== ENCOUNTER 2020-09-02 06:07 | Day surgery (SDC) | payer BC ==
[2020-08-30 15:37] VITALS: BMI 29.1
[2020-09-02] MEDS ORDERED: LACTATED RINGERS 1,000 ML IV SCH (06:15)
[2020-09-02 06:25] VITALS: TEMP 97.8
[2020-09-02] MEDS ORDERED: IOPAMIDOL M200 10 ML VIAL ONE (06:58)
[2020-09-02] MEDS ORDERED: methylPREDNISolone ACETATE 40 MG/ML 1 ML VIAL ONE (06:58)
--- NOTE | 2020-09-02 07:08 | P.PCN ---
Date of Procedure: 09/02/20 Procedure(s) Performed: PREOPERATIVE DIAGNOSIS: 1- Lumbar Degenerative Disc Diseases 2-Lumbar spondylosis with Facet arthropathy without myelopathy 3-lumbar radiculopathy POSTOPERATIVE DIAGNOSIS: Same as preop diagnosis. PROCEDURE 1. Lumbar epidural steroid injection under fluoroscopic guidance at the L4-5 level. (Fluoroscopy imaging was available in radiology department) 2. Lumbar epidurogram. ANESTHESIA: Local with 1% lidocaine 3 ml only . EBL: Minimal PROCEDURE INDICATION: The patient with low back pain and radiculitis symptoms unresponsive to conservative treatment. Fluoroscopy was used to optimize visualization of the needle placement and to maximize safety. PROCEDURE DESCRIPTION / TECHNIQUE: The patient was seen and identified in the preoperative area. Risks, benefits, complications including but not limited to infections ,bleeding ,allergic reaction to the medications ,nerve damage and not complete pain releife , and alternatives were discussed with the patient. The patient agreed to proceed with the procedure and signed the consent. IV was started, and vital signs were stable. Patient was taken to the OR and time out was completed. The patient was placed in the prone position on procedure table and a pillow was placed under the abdomen to reduce lumbar lordosis. The lumbosacral area was prepped and draped in the usual sterile fashion. closely monitored during the procedure. Vital signs was monitered during the entire procedure. Using anterior-posterior fluoroscopy, the L4-5interlaminar space was identified and the skin over this site was marked and then infiltrated with 1% lidocaine subcutaneously. Subsequently, a 20-gauge Tuohy epidural needle was inserted and advanced toward the epidural space using the ``Loss of resistance technique and guided by AP and lateral fluoroscopy. The correct needle position in the epidural space was verified with the injection of 2 mL of the water soluble contrast dye Isovue 200 contrast and observing an excellent epidurogram with the epidural spread of the dye, after negative aspiration for blood and CSF and in the absence of paresthesias. Again after negative aspiration, a 6 ml mixture containing 80 mg of Depo-medrol , and 2 ml of preservative free Normal Saline, and 2 ml of preservative free lidocaine 1% solution was injected and a washout of epidurogram was seen. Needle was withdrawn intact, skin was cleansed, and bandages were applied. COMPLICATIONS: None DISPOSITION / PLANS: The patient was placed in a supine position and transferred to the recovery area in a stable condition for observation. There was no evidence of lower extremity motor or sensory deficit after the procedure. Patient was discharged from the recovery room after meeting discharge criteria. Home discharge instructions were given to the patient by the staff. The patient was reexamined prior to discharge. The patient will schedule a follow up in the clinic in 2-4 weeks.
[2020-09-02 07:20] VITALS: BP 132/83; PULSE 76; RESP 16
--- NOTE | 2020-09-02 12:52 | FL ---
Fluoroscopy HISTORY: Pain 3 seconds fluoroscopy time supplied to the referring clinician. 1 intraoperative C-arm images docume nt the procedure. See dictated report from anesthesia.
== END 2020-09-02 07:30 | disposition home or self-care (01) ==
LOC: ORPAIN 06:07
PROVIDERS: ATTEND Specialist
DX: M51.16 Intervertebral disc disorders with radiculopathy, lumbar region (principal); M47.26 Other spondylosis with radiculopathy, lumbar region
CPT/HCPCS: 62323; J1030; Q9966

== ENCOUNTER → 2020-10-08 | Outpatient (CLI) | payer BC | END | disposition home or self-care (01) | LOC: LABPAT 11:07 | PROVIDERS: ATTEND Orthopaedic Surgery | DX: Z01.812 Encounter for preprocedural laboratory examination (principal); M48.061 Spinal stenosis, lumbar region without neurogenic claudication | CPT/HCPCS: 87070 ==

== ENCOUNTER 2020-10-19 06:16 | Day surgery (SDC) | payer BC ==
[2020-10-14 16:19] VITALS: BMI 29.8
[~2020-10-19 06:16] MED LIST changes: +ACETAMINOPHEN TAB 500 MG TAB PO PRN; +DEXAMETHASONE SOD PHOSPHATE 4 MG/ML 1 ML VIAL IV ONE; +GABAPENTIN 300 MG CAP PO PRN; +LIDOCAINE 1% (10MG/ML) FOR IV START INTRADERMA PRN; +MIDAZOLAM 2 MG/2 ML VIAL IV PRN; +ONDANSETRON 4 MG/2 ML VIAL IVP ONE; +ONDANSETRON 4 MG/2 ML VIAL IVP PRN; +TRANEXAMIC ACID 1,000 MG in SODIUM CHLORIDE 0.9% 100 ML IVPB PRN
--- NOTE | 2020-10-19 06:47 | P.HPOR ---
History of Present Illness H&P Date: 10/19/20 Chief Complaint: LE weakness, LE radiculopathy, Back pain Physical Therapy: Yes How many sessions? multiple sessions Did it help? No Injections: Yes How many? 3-4 Did they help? No Activity Modifications: No Brace: No CC: I have low back pain and issues with my bowels Subjective: This 49 year old male presents with low back pain. Patient denies any specific injury. He states that he has had intermittent back pain for 20 years. He reports numbness and weakness that radiates into both of his hips and down his legs. He notes bowel incontinence to the fact that he cannot make it to the bathroom in time and it seems to come out fairly quick when he has to go. He can feel when he goes and he can hold it to an extent but he is not able to hold it completely. He denies any perineal numbness or tingling. He previously saw Dr. Rainey for these issues he has had injections physical therapy ablations which have not helped. He has had previous physical therapy and steroid injections with no relief. Patient is not taking any medication for pain. This 49 year old male presents today for a follow up on his back pain. Patient has had 2 L4-L5 bilateral transforaminal steroid injections so far with minimal relief. He is scheduled for another injection on 09/02/2020. He reports continued back pain. He notes bilateral hip pain and bilateral leg pain. He also notes bilateral foot numbness. Patient is taking Advil as needed for pain . Patient is ambulating independently. He states no bowel or bladder issues. No perineal numbness/tingling. Review of Systems 14 points review of systems completed and as stated in HPI, all other systems reviewed are negative. Past Medical History Past Medical History: Osteoarthritis (OA) Additional Past Medical History / Comment(s): BACK PAIN History of Any Multi-Drug Resistant Organisms: None Reported Past Surgical History: Cholecystectomy Additional Past Surgical History / Comment(s): 09/17/17 Lap cholecystectomy, L tear duct replaced, bilateral eyes lasik surgery for vision correction in 2018. epidural steriod for pain, BILATERAL CARPAL TUNNEL RELEASE Past Anesthesia/Blood Transfusion Reactions: No Reported Reaction Smoking Status: Former smoker - Past Family History Father Family Medical History: Coronary Artery Disease (CAD), Diabetes Mellitus, Myocardial Infarction (AR) Additional Family Medical History / Comment(s): Stents X2. Father had his AR in his mid 50s. Mother Family Medical History: No Reported History Medications and Allergies Home Medications Medication Instructions Recorded Confirmed Type Dextroamphetamine/Amphetamine 10 mg PO BID 06/14/20 10/14/20 History [Adderall] Sertraline [Zoloft] 25 mg PO DAILY 06/14/20 10/14/20 History lamoTRIgine [LaMICtal] 200 mg PO BID 06/14/20 10/14/20 History Ibuprofen [Advil] 200 - 400 mg PO Q6HR PRN 07/02/20 10/14/20 History Acetaminophen [Tylenol Extra 500 mg PO Q4-6H PRN 10/14/20 10/14/20 History Strength] Allergies Allergy/AdvReac Type Severity Reaction Status Date / Time No Known Allergies Allergy Verified 10/14/20 15:51 Physical Examination Osteopathic Statement: *. No significant issues noted on an osteopathic structural exam other than those noted in the History and Physical/Consult. General: Awake, alert, appropriate for age, in no acute distress. HEENT: No unusual neck masses around region of lateral neck triangle, thyroid, supraclavicular groove Heart: Regular rate and rhythm, normal S1, S2 and no murmur/gallop. Lungs: Clear to auscultation bilaterally with no use of accessory muscles. Extremities: Skin warm and dry without acute lesions, coloration, temperature, skin intact, no tenderness or erythema Integument: Hairy patches: Absent Dorsal skin dimples: Absent Cafe au lait spots: Absent Surgical incisions: None Palpation: Please see Pain drawing on Intake sheet for further detail. Midline spinal tenderness: yes lumbar E6 Paralumbar tenderness: No E6 Parathoracic tenderness: No E6 Buttocks tenderness: No E6 Special findings: none POSTURAL and MUSCULO-SKELETAL EVALUATION: Coronal Balance: Neutral Recumbent testing: Patient is able to lay flat on back Sagittal Balance: Neutral Shoulder Profile: level Pelvic Girdle: level Neck ROM: Unrestricted Lumbar ROM: Unrestricted Shoulder ROM: Symmetric in abduction, ER/IR Hip ROM: Symmetric in abduction, adduction, ER/IR Knee ROM: Symmetric and intact in Flexion / extension Hands: Normal Feet: Normal VASCULAR STATUS : LEFT RIGHT Wrist Pulses intact intact Pedal Pulses (Dors. pedis & post.tibialis) intact intact Color normal normal Edema Absent Absent NEUROLOGIC EXAMINATION: Mental Status: Awake and alert, fully oriented, with normal attention, concentration and memory, and fluent, appropriate speech. Cranial Nerves: I: Olfactory not tested. II: Visual acuity normal, no visual field deficit noted with confrontation. III,IV: Normal pupillary reflexes & intact extraocular movements without nystagmus. V,: Intact symmetrical facial sensation. VII: Intact symmetrical facial motor movement VIII: Hearing intact. IX,X: Intact gag, swallow, & normal voice. XI: Sternocleidomastoid, trapezius function intact. XII: Tongue midline with normal movements. L'hermitte's Sign: Negative / absent Spurling'Sign: Absent bilaterally. Cubital percussion test: Absent bilaterally. Ramírez-Tinel sign - Carpal region: Absent bilaterally. Straight Leg Raising: Absent bilaterally. Crossed straight leg raise: negative MOTOR EXAM (0-5/5, N/T) STRENGTH RIGHT LEFT Shoulder Abd (not part of the JOSE score) 5 5 Elbow Flexors 5 5 Elbow Extensor 5 5 Wrist Dorsiflexors 5 5 Finger Abductor 5 5 Director Of Preclinical Research 5 5 Hip Flexor (Not part of JOSE Motor score) 5 5 Knee Flexor 5 5 Knee Extensor 5 5 Ankle dorsiflexor 5 5 Achillesplantarflexion 3+ 3+ Extensor hallucis 5 5 REFLEXES(0-4/2, NT) RIGHT LEFT Upper Extremities 2 2 Lower Extremities 1 1 Pathological Reflexes RIGHT LEFT Coppola's Present Present Clonus Absent Absent negative Babinskis bilaterally Muscle appearance: Normal Rectal Tone: Not tested, pt declined at this time Sensory system (0-4, N/T) Test type RU CARROL RL LL Joint-Position 2 2 2 2 Vibration 2 2 2 2 Pain & LT sense 2 2 2 2 Dermatomal Deficit: none none none none Gait and Functional Evaluation: Ambulatory aids: Independent Romberg's test: Intact bilaterally Toe heel walk / heel-toe walk intact while maintaining satisfactory balance? yes Squatting/straightening w/o assistance to a min of 60 degree knee flexion? yes Single leg stance: intact Trendelenburg sign negative bilaterally Hand and finger dexterity intact bilaterally? yes Disdiadochokinesis examination negative bilaterally? yes Results AP lateral flexion extension films of the lumbar spine as well as AP pelvis are obtained and reviewed in the office today. Lumbar spine films demonstrate maintaining coronal as well as sagittal balance. There is L5-S1 spondylosis with facet arthropathy and stenosis which is noted. This remained stable thro ugh flexion extension however with no listhesis. There are no masses lesions fractures or dislocations noted. AP pelvis demonstrates level pelvis congruent femoral acetabular joints without osteophytic changes no fractures or dislocations or lesions noted. XRAY: MRI of the lumbar spine from 05/26/2020 reveals: this reveals central stenosis at L3 4 which is moderate in nature. This is also bilateral foraminal stenosis. At L4 5 is a central disc herniation which is likely chronic in nature. This causes mild central stenosis. No foraminal stenosis. At L5-S1 the patient has left foraminal stenosis which is noted due to a broad-based disc bulge however there is no central stenosis and no nerve root encroachment that can be seen. Overall alignment is well-maintained. There is no fractures or dislocations noted. Assessment and Plan Assessment: 1. L3-L4 and L4-5 central stenosis 2. lower extremity radiculopathy bilateral 3. Lower extremity weakness bilateral Plan: Based on my findings I suggest the following course of action: 1. We will schedule him for an L3-L4, L4-L5 disc decompression 2. Schedule for 1 week pre-operative appointment in the office 3. He will be off work 8 weeks post procedure Surgical Procedure Risk Review Kristian Sanchez is a 49 year old male presenting for evaluation of onset of low back pain and lower extremity radiculopathy and. It was my pleasure to have seen and examined Mr. Sanchez. In our visit today we have had a chance to go over subjective complaints, physical examination findings and treatments, including the natural course history without intervention and various interventional options. The imaging demonstrates L3 to L5 stenosis with annular tear and herniated nucleus pulposus . On physical exam, Mr. Sanchez demonstrates progressive radiculopathy and neurogenic claudication low back pain and left lower extremity weakness . I explained to the patient that as his condition progresses it could cause continued symptoms progressive symptoms or worsening of symptoms he has tried all conservative measures including injections physical therapy or oral and [id number] medications as well as prescription medications without any improvement at this time. He feels that he cannot do his job or dated livings at this time secondary to his issues. . At this time, based on the patients imaging and physical exam, I recommend surgery in the form or a: Decompression and possible Coflex placement L3 to L5 . I discussed the risk and benefits of this procedure at length with Mr. Sanchez. The patient agreed to consider pursuing the procedure mentioned above. Plan: 1. L3 to L5 decompression with possible Coflex placement 2. Follow up with PCP for surgical clearance 3. Review of surgical risks and benefits as well as an educational packet on the proposed surgical procedure. Risks: All surgical procedures come with inherent risks, including those related to positioning, anesthesia, intraoperative findings, and postoperative complications. It is important to understand that surgery does not come with any guarantee of a successful outcome as complications and adverse events are always possible. The patient was given a handout in office today discussing the surgical procedure and risks associated with the intervention, both of which were discussed with the patient. These risks include but are not limited to the following: ? Experiencing same, different or even worse symptoms in back, neck, arms, or legs compared to before surgery. ? Requiring further surgery or other forms of treatment presently or at some time in the future at same or other levels of the intended spine surgery. ? On an extreme but fortunately relatively rare basis severe complication such as blindness, stroke, heart attack, temporary and/or permanent nerve injury, paralysis, coma, or may occur, sometimes without known explanation. ? Surgical complications may include but are not limited to risk of infection, fluid accumulation in the surgical dissection site, including a seroma or hematoma, that requires additional surgery, wound drainage, bleeding, new numbness or weakness, vision changes/loss, spinal fluid leakage, non-healing and/or infected incision, headaches, difficulty or inability to swallow, hoarseness, hemopneumothorax, pneumothorax, impotence, retrograde ejaculation, vaginal dryness; injury to nerves, spinal cord, blood vessels, lymphatics or other vital organs (i.e., bowel injury, injury to the great vessels); heterotopic bone formation; complications related to the hardware such as screws, rods, cages including misplaced hardware, device failure, instrumentation at the wrong spine level, hardware fracture/breakage, or hardware loosening; vertebral failure of the spinal column above or below the newly placed hardware; retained surgical instrumentations or devices and the need for further surgery. ? Medical risks of the planned spine surgery include but are not limited to generalized Infections to the whole body or local areas outside of the surgical site (sepsis), heart attack, bleeding, anaphylaxis, meningitis, seizure, epile psy, hearing loss, burn beth, laceration of the head or other areas of the body, bruising, hypersensitivity of the skin, bladder over distension; allergic reaction; shoulder injury related to positioning; fat, blood and air clots to other areas of the body like heart, lungs, brain; failure of internal organs such as lungs, kidneys, liver and excessive bleeding. If blood transfusions are necessary, note that transfusions may cause intolerance reactions such as anaphylaxis or other complex reactions. Despite best efforts, the results of spine surgery might not heal in terms of bone, soft tissues such as skin, fascia, ligaments, and joints. Additionally, in order to achieve best possible results, spine surgery may be carried out beyond the initially planned levels and involve decompression, fusion including insertion of hardware at levels other than the original intended area of surgical interest change some portions of the procedure in order to ensure the best possible outcomes. With spine surgery and spinal fusion, there are different off label uses of instrumentation (devices, implants and hardware) as well as biological substances (bone morphogenic proteins, demineralized bone matrix) as well as using extra bone from allograft sources (i.e. cadaver bone) or autograft (iliac crest bone, ribs, or the spine itself). The patient has been given information about these practices and their inherent risks and benefits. [facility] Physician Assistants are medically trained surgical providers who function in the outpatient, inpatient, and operating room setting under the direct supervision of the attending surgeon.They assist in the operating room with direct supervision of the attending surgeons. The patient has had a chance to review all the listed information, has been given print outs detailing this information, and has had all his/her questions answered to their satisfaction. It was my pleasure to have seen and examined Mr. Sanchez. In our visit today we have had a chance to go over my understanding of our patient's current condition, the natural course history without intervention and various interventional options. Questions were invited and answered, and the patient wishes to proceed as outlined above. I have seen and examined the patient for 25 minutes and we have spent more than 50% of the time in repeat and detailed counseling about the patient's condition, its natural course history with out and as much as can be predicted with surgery and re-review of various surgical treatment options. In conclusion,Mr. Sanchez and his spouse/partner requested we proceed with the above suggested surgery and are willing to accept risks and limitations of the suggested surgery as nature of the disease process and our best attempts at tr eatment for the condition. Thank you again for allowing us to be part of your patient's care. Please don't hesitate to contact me if you have any further questions. Signed and authenticated by: Jose David [facility] [address] [id number] In our visit today Mr. Sanchez and I have had a chance to go over my understanding of the patient's current condition, the natural course history without intervention and various interventional options. Questions were invited and answered, and the patient wishes to proceed as outlined above. I will be sure to keep you updated after Mr. Sanchez returns here for further follow-up. Thank you again for your referral. Please do not hesitate to contact me if you have any further questions. Signed and authenticated by: Jose David [facility] [address] [facility], [address] [address]
[2020-10-19] MEDS ORDERED: HYDROmorphone 0.5 MG/0.5 ML SYRINGE IVP PRN (07:00)
[2020-10-19] MEDS ORDERED: NEOSTIGMINE 1 MG/ML 10 ML VIAL ONE (07:24)
[2020-10-19] MEDS ORDERED: MIDAZOLAM 2 MG/2 ML VIAL ONE (07:24)
[2020-10-19] MEDS ORDERED: PROPOFOL 10 MG/ML 20 ML VIAL IV ONE (07:24)
[2020-10-19] MEDS ORDERED: GLYCOPYRROLATE 0.2 MG/ML 2 ML VIAL ONE (07:24)
[2020-10-19] MEDS ORDERED: ROCURONIUM 10 MG/ML (5 ML VIAL) IV ONE (07:24)
[2020-10-19] MEDS ORDERED: fentaNYL (PF) 50 MCG/ML 2 ML AMP ONE (07:24)
[2020-10-19] MEDS ORDERED: HYDROmorphone (PF) 1 MG/ML ONE (07:24)
[2020-10-19] MEDS ORDERED: KETAMINE 10 MG/ML 20 ML VIAL ONE (07:24)
[2020-10-19] MEDS ORDERED: TRANEXAMIC ACID 1,000 MG/10 ML VIAL ONE (07:24)
[2020-10-19] MEDS ORDERED: SODIUM CHLORIDE 0.9% 100 ML BAG ONE ×2 (07:24)
[2020-10-19] MEDS ORDERED: LIDOCAINE 1% INJ 10MG/ML (20 ML MDV) ONE (07:24)
[2020-10-19] MEDS ORDERED: SUCCINYLCHOLINE CHLORIDE 100 MG/5 ML SYR IV ONE (07:24)
[2020-10-19] MEDS ORDERED: ceFAZolin 1,000 MG VIAL ONE (07:24)
[2020-10-19] MEDS ORDERED: BUPIVACAINE (PF) 0.25% 30 ML VIAL SQ ONE (07:30)
[2020-10-19] MEDS ORDERED: THROMBIN (BOVINE) 5,000 UNIT VIAL TOPICAL ONE (07:30)
[2020-10-19] MEDS ORDERED: GELATIN SPONGE,ABSORB (LARGE) 1 EACH SPONGE TOPICAL ONE (07:30)
[2020-10-19] MEDS ORDERED: ceFAZolin 3,000 MG in SODIUM CHLORIDE 0.9% IRRIGATIO 3,000 ML IRRIGATION ONE (08:31)
[2020-10-19] MEDS ORDERED: LACTATED RINGERS 1,000 ML IV ONE (10:34)
--- NOTE | 2020-10-19 11:40 | FL ---
EXAMINATION TYPE: FL guidance operating room DATE OF EXAM: 10/19/2020 HISTORY: Fluoroscopy time 5 seconds of fluoroscopy provided. IMPRESSION: 1. Fluoroscopy time.
[2020-10-19] MEDS ORDERED: VANCOMYCIN 1,000 MG VIAL MISCELLANE ONE (11:43)
[2020-10-19 12:17] VITALS: TEMP 98
--- NOTE | 2020-10-19 12:23 | XR ---
EXAMINATION TYPE: XR lumbar spine 2 or 3V DATE OF EXAM: 10/19/2020 COMPARISON: NONE HISTORY: Lumbar laminectomy TECHNIQUE: 7 views submitted FINDINGS: Multiple intraoperative images demonstrate postsurgical changes with multiple metallic inst ruments noted. IMPRESSION: Intraoperative images
--- NOTE | 2020-10-19 12:42 | P.OP ---
Date of Procedure: 10/19/20 Preoperative Diagnosis: 1. L3-4 central and foraminal stenosis 2. L4-5 central stenosis 3. RLE radiculopathy 4. RLE weakness 5. Low back pain Postoperative Diagnosis: 1. L3-4 central and foraminal stenosis 2. L4-5 central stenosis 3. RLE radiculopathy 4. RLE weakness 5. Low back pain Procedure(s) Performed: 1. L3-4 bilateral midline sparing laminotomy, partial medial facetectomy and bilateral foraminotomy 2. L3-4 Coflex interspinous spacer placement 3. L4-5 bilateral midline sparing laminotomy, partial medial facetectomy and bilateral foraminotomy 4. Use of intraoperative microscope Implants: 12 mm coflex Anesthesia: GETA Surgeon: Jose David Armas Vp Project #1: León Mosley (Was present for the entire case and necessary due to the complexity of the case) Estimated Blood Loss (ml): 200 IV fluids (ml): 1,200 Urine output (ml): 0 Pathology: none sent Condition: stable Disposition: PACU Indications for Procedure: 49-year-old male presents with complaints of low back pain and buttock pain right lower extremity pain and hip pain as well as radiculopathy weakness in right lower extremity which has continued for the past 6-7 months. Patient previously has had this issue which it seems to go away over this time it does not and has been going on for several years. He has gone through multiple different conservative modes of treatment including injections physical therapy and [id number] medications as well as prescription medications none of which helped his symptoms. He continued progress and have increased weakness in his right lower extremity and 71 decided and elected to undergo surgical intervention for this. He is seen and examined preoperatively all risks and benefits discussed the risk of bleeding infection and arthritis risk reoperation risk of anesthesia up to including use when assuming these risks and all the risks of surgery. Operative Findings: Severe stenosis L3-L4 ligamental and facet hypertrophy Stenosis L4-L5 due to facet hypertrophy Description of Procedure: The patient was seen and examined in the preoperative area. All preoperative protocols were followed. Informed consent was obtained risks and benefits of the procedure were discussed at length. Risks including bleeding infection damage to the surrounding tissue and risk of reoperation were discussed with the patient. Risk of anesthesia up to and including was a discussed with the patient. These are outlined in the risk review. They were willing to accept these risks and all of the risks of surgery. The patient was given a weight- based dose of antibiotics in the form of 2 g Ancef IVPB 1. The patient was seen and evaluated by the anesthesia team who deemed them fit for surgery. The site was marked, the patient was willing to proceed with the procedure. The patient was transferred to the operative suite by the Department of anesthesia. They were then drifted off to sleep by the department anesthesia GETA. The patient tolerated this well. . Once confirmation of lines and ventilation the patient was transferred to a prone William Jan table very carefully. All bony prominences including wrists, elbows, axilla, chest, hips, and thighs, and feet were padded very well. Special attention was paid to the genitalia and these were padded accordingly. SCDs were placed on bilateral lower extremities and were connected. Arms were well padded and placed [on arm boards up and out in the 90/90 position]. Once in position, again we confirmed good ventilation capabilities and that lines were running appropriately. The patient's [cervical/thoracic/lumbar] spine was then exposed. 1010s were placed outlining the incision site. Standard alcohol was used to clean the incision site and allowed to dry. C-arm was used to biomark the patient and confirm level for incision which was marked with a skin marker. Operative briefing was performed with all teams and everyone in agreement to proceed. The patient was then prepped and draped in a normal sterile fashion. Timeout was then performed and all parties were in agreement with the procedure to be performed. Core percent Marcaine without epinephrine was infiltrated in the surgical field. Skin incision was then made midline over the previously by marked area and taken down to the subcutaneous region were left-sided dissection was then used and meticulous hemostasis achieved. Bilateral midline sparing fasciotomy was made and subperiosteal dissection taken over the lamina of L3-L4 and L5. [place] 4 was then placed lateral to the pars at L4 5 and lateral x-ray confirmed the position as well as levels. Once levels were confirmed we continued dissection and finish this with them starting at the L3 4 level on the left-hand side using microscope for the laminotomy high-speed bur was used to make inverted U cuts and J cuts within the L3 and L4 region for a laminotomy with and performed a medial facetectomy and foraminotomy on this side as well [place] rongeurs used to remove excess ligament of flavum and for the foraminotomy Brewster ball-tip probe confirmed good decompression of the nerves in this area. We then turned our attention to the right-hand side of this level where a inverted U cut and J cut was made and L3 to L4 laminotomy regions medial facetectomy performed and foraminotomy Kerrison rongeurs used to remove excess bone as well as ligamentum flavum and Brewster probe confirmed good decompression of the foramen. We then removed the interspinous ligament with electrocautery and rongeur then under lateral fluoroscopy was sized the Coflex device. We then impacted the Coflex device at [address] under lateral fluoroscopy ensuring that is 1-2 mm from the dura this was confirmed under direct visualization and by lateral fluoroscopy. We then crimped the fins to ensure that was in good position and checked its stability and it was stable. We irrigated the wound copiously and then turned our attention to the L4 5 level were performed bilateral laminectomy laminotomy foraminotomies and medial facetectomy. Kerrison rongeurs was used to clean this area up and to insure foraminotomies and removal of excess ligamentum flavum we then used a Brewster ball probe to ensure good decompression of the nerves and the foramina. FloSeal was placed in the both openings along with patties to ensure meticulous hemostasis once this was achieved the wound was copiously irrigated with 3 L of normal sterile saline. AP and lateral fluoroscopy final images were taken and showed good placement as well as decompression of this area. 2 g of vancomycin powder replaced deep within the wound Retractors were then removed and the fascia closed with #1 Vicryl in a simple fashion followed by a running barbed strata fix suture. 1 g of Cellerate powder was placed within the subcu region after the fascia was closed. Subcu was closed with 2-0 Vicryl and subcuticular closure with 30 strata fix skin was then cleaned and dressed sterilely with sterile pernieo tape and glue. The glue was allowed to dry thoroughly and then it was dressed with Telfa 4 x 4's and Tegaderms. The patient was transferred back to Their hospital bed atraumatically. Patient was then awakened and extubated by the department of anesthesia having tolerated the procedure very well with no complications. They were transferred to the postoperative care unit in stable condition.
[2020-10-19] MEDS ORDERED: Acetaminophen-Codeine 300-30mg TAB ONE (14:21)
[2020-10-19] MEDS ORDERED: Acetaminophen-Codeine 300-30mg TAB PO ONE (14:24)
[2020-10-19 15:17] VITALS: BP 129/75; PULSE 78; RESP 16
== END 2020-10-19 16:30 | disposition home or self-care (01) ==
LOC: OR 06:16 → EDSTATUS 07:30 → OR 16:30
PROVIDERS: ATTEND Orthopaedic Surgery
DX: M48.062 Spinal stenosis, lumbar region with neurogenic claudication (principal); M54.16 Radiculopathy, lumbar region; M19.90 Unspecified osteoarthritis, unspecified site; Z90.49 Acquired absence of other specified parts of digestive tract; Z98.890 Other specified postprocedural states; Z87.891 Personal history of nicotine dependence; Z82.49 Family history of ischemic heart disease and other diseases of the circulatory system; Z83.3 Family history of diabetes mellitus; Z79.899 Other long term (current) drug therapy; F90.9 Attention-deficit hyperactivity disorder, unspecified type
CPT/HCPCS: 86900; 86901; 86850; 72100; 36415; 22867; 22868; C1713; C1762; J2250; J3370; J1100; J2710; J0690 ×2; J2405; J2001; J3010; J1170 ×2; J0330; J2704

== ENCOUNTER 2020-10-21 09:06 | Observation (INO) | payer BC ==
[2020-10-21] MEDS ORDERED: ONDANSETRON 4 MG/2 ML VIAL IVP STA (09:32)
[2020-10-21] MEDS ORDERED: HYDROmorphone 1 MG/ML 1 ML SYRINGE IVP STA ×2 (09:32→12:03)
[2020-10-21] MEDS ORDERED: DEXAMETHASONE SOD PHOSPHATE 10 MG/ML 1 ML VIAL IV STA (09:58)
--- NOTE | 2020-10-21 10:38 | ED ---
Back Pain HPI - General Chief Complaint: Back Pain/Injury Stated Complaint: Back pain, post back surgery Time Seen by Provider: 10/21/20 09:15 Source: patient, family, RN notes reviewed Limitations: no limitations - History of Present Illness Initial Comments: This a 49-year-old male presents emergency Department chief complaint of back pain. Patient had surgery [address] Armas. Patient states she's been having increasing pain. Patient states pain was on tolerable with his health codeine, his surgeon called him an oxycodone. Patient states he still having increasing pain pain rating into his groin. He denies any bowel bladder incontinence or retention. No saddle anesthesias. No lower extremity paresthesias. He does have pain rates toes legs which is been chronic before the surgery. Denies fevers chills night sweats. - Related Data Home Medications Medication Instructions Recorded Confirmed Dextroamphetamine/Amphetamine 10 mg PO BID 06/14/20 10/21/20 [Adderall] Sertraline [Zoloft] 25 mg PO DAILY 06/14/20 10/21/20 lamoTRIgine [LaMICtal] 400 mg PO DAILY 06/14/20 10/21/20 Ibuprofen [Advil] 200 - 400 mg PO Q6H PRN 07/02/20 10/21/20 Acetaminophen [Tylenol Extra 500 mg PO Q4-6H PRN 10/14/20 10/21/20 Strength] Sennosides/Docusate Sodium [Senna 1 tab PO BID PRN 10/21/20 10/21/20 Plus 8.6-50 mg Softgel] cefaDROXiL [Duricef] 500 mg PO Q12H 10/21/20 10/21/20 oxyCODONE-APAP 5-325MG [Percocet 1 - 2 tab PO Q4-6H PRN 10/21/20 10/21/20 5-325 mg] Previous Rx's Medication Instructions Recorded Cyclobenzaprine [Flexeril] 10 mg PO HS PRN #40 tab 10/19/20 Gabapentin 300 mg PO TID 3 Days #9 cap 10/19/20 Allergies Allergy/AdvReac Type Severity Reaction Status Date / Time No Known Allergies Allergy Verified 10/21/20 11:10 Review of Systems ROS Statement: Those systems with pertinent positive or pertinent negative responses have been documented in the HPI. ROS Other: All systems not noted in ROS Statement are negative. Past Medical History Past Medical History: No Reported History Additional Past Medical History / Comment(s): pain clinic procedures, History of Any Multi-Drug Resistant Organisms: None Reported Past Surgical History: Cholecystectomy Additional Past Surgical History / Comment(s): 09/17/17 Lap cholecystectomy, L tear duct replaced, bilateral eyes lasik surgery for vision correction in 2018. epidural steriod for pain, Back surgery Past Anesthesia/Blood Transfusion Reactions: No Reported Reaction Past Psychological History: ADD/ADHD, Anxiety Smoking Status: Former smoker Past Alcohol Use History: None Reported Past Drug Use History: None Reported - Past Family History Father Family Medical History: Coronary Artery Disease (CAD), Diabetes Mellitus, Myocardial Infarction (AR) Additional Family Medical History / Comment(s): Stents X2. Father had his AR in his mid 50s. Mother Family Medical History: No Reported History General Exam Limitations: no limitations General appearance: alert, in no apparent distress Head exam: Present: atraumatic, normocephalic, normal inspection Neck exam: Present: normal inspection, full ROM. Absent: tenderness, meningismus, lymphadenopathy Respiratory exam: Present: normal lung sounds bilaterally. Absent: respiratory distress, wheezes, rales, rhonchi, stridor Cardiovascular Exam: Present: regular rate, normal rhythm, normal heart sounds. Absent: systolic murmur, diastolic murmur, rubs, gallop, clicks GI/Abdominal exam: Present: soft, normal bowel sounds. Absent: distended, tenderness, guarding, rebound, rigid Extremities exam: Present: other (Lower extremity neurovascular intact equal color equal warmth) Back exam: Present: tenderness. Absent: normal inspection (Well dry intact incision no erythema no drainage) Neurological exam: Present: alert, oriented X3 Skin exam: Present: warm, dry, intact, normal color. Absent: rash Course Vital Signs 10/21/20 10/21/20 10/21/20 09:08 10:09 11:59 Temperature 97.9 F 98.9 F Pulse Rate 77 87 80 Respiratory 22 18 18 Rate Blood Pressure 180/79 126/85 124/83 O2 Sat by Pulse 99 96 98 Oximetry - Reevaluation(s) Reevaluation #1: 10/21/20 10:37 After evaluating patient I did contact on-call neck branch for Dr. Martinez who came down evaluated the patient along with Dr. Armas Medical Decision Making - Medical Decision Making Patient did have CT, given pain control evaluated by orthopedics. Patient be admitted for MRI, pain control and further evaluation Disposition Clinical Impression: Status post laminectomy, Lumbar back pain, Intractable back pain Disposition: ADMITTED IP TO THIS [facility] Condition: Fair Referrals: Lele Guerin DO [Primary Care Provider] - 1-2 days Time of Disposition: 12:35
--- NOTE | 2020-10-21 12:04 | CT ---
EXAMINATION TYPE: CT lumbar spine wo con DATE OF EXAM: 10/21/2020 11:02 AM COMPARISON: Lumbar spine intraoperative x-ray 2 days ago HISTORY: Back pain, S/P surgery [address] DLP: 1541.6 mGycm Automated exposure control for dose reduction was used. Unenhanced CT of the lumbar spine was performed. Bone and soft tissue window settings are submitted as well as coronal and sagittal reconstructions. There are 5 lumbar type vertebra redemonstrated. Alignment stable and satisfactory. Posterior spinous process fusion hardware L3-L4 level redemonstrated. Subcutaneous gas posteriorly extends from L2-L3 level surrounding the surgical material extending inferiorly into the epidural space. Prominent Schmo rl node in the inferior L3 endplate. Mild multilevel anterior and lateral spurring. Vertebral body he ights and disc space heights are maintained. Disc herniation L4-L5 level effaces anterior thecal sac axial image 81 and sagittal image 33. Mild to moderate diffuse posterior subcutaneous edema. No well-formed fluid collection or abscess. Paraspina l muscle bulk maintained. No suspicious intra-abdominal findings. Cholecystectomy clips. Diffuse fatt y infiltration of visualized liver. IMPRESSION: As above. Postsurgical changes noted. No obvious suspicious findings.
[2020-10-21] MEDS ORDERED: ONDANSETRON 4 MG/2 ML VIAL IVP PRN (12:36)
[2020-10-21] MEDS ORDERED: HYDROmorphone 0.5 MG/0.5 ML SYRINGE IVP PRN (12:36)
[2020-10-21] MEDS ORDERED: NALOXONE 0.4 MG/ML 1 ML VIAL IV PRN (12:36)
--- NOTE | 2020-10-21 13:17 | P.HPOR ---
History of Present Illness H&P Date: 10/21/20 Chief Complaint: Low back pain Patient is a 49-year-old male who presented to [facility] emergency room for increasing low back pain. Patient recently underwent a lumbar surgery with Dr. Armas on 10/19/2020. Patient was discharged home the same day, he initially was doing very well. Over the last day or 2 patient has noticed increasing pain in the low back. He also notes discomfort that radiates down both legs. The pain radiating down the legs and centered in the low back was there prior to surgery. Patient also notes new onset type pain involving radiation into the groin area bilaterally. Patient was discharged home initially and Tylenol 3, gabapentin and Flexeril. He did contact the office yesterday, we had placed him on oxycodone 5 mg/325 mg, 1-2 tablets every 6 hours as needed. With the increasing pain medication, his symptoms still persisted. This prompted him to report to the hospital. Patient was evaluated in the emergency room, he is resting comfortably at bedside. Patient's is present with him. He denies any chest pain, shortness of breath, nausea vomiting, fever or chills, bowel or bladder incontinence, general no apparent nail numbness. Patient states that he has been ambulating with no assistive devices. Patient denies any trauma, this including falls. Patient denies any numbness or tingling or pain involving the bilateral upper extremities. Review of Systems Constitutional: Reports as per HPI Past Medical History Past Medical History: No Reported History Additional Past Medical History / Comment(s): pain clinic procedures, History of Any Multi-Drug Resistant Organisms: None Reported Past Surgical History: Cholecystectomy Additional Past Surgical History / Comment(s): 09/17/17 Lap cholecystectomy, L tear duct replaced, bilateral eyes lasik surgery for vision correction in 2018. epidural steriod for pain, Back surgery Past Anesthesia/Blood Transfusion Reactions: No Reported Reaction Past Psychological History: ADD/ADHD, Anxiety Smoking Status: Former smoker Past Alcohol Use History: None Reported Past Drug Use History: None Reported - Past Family History Father Family Medical History: Coronary Artery Disease (CAD), Diabetes Mellitus, Myocardial Infarction (DC) Additional Family Medical History / Comment(s): Stents X2. Father had his DC in his mid 50s. Mother Family Medical History: No Reported History Medications and Allergies Home Medications Medication Instructions Recorded Confirmed Type Dextroamphetamine/Amphetamine 10 mg PO BID 06/14/20 10/21/20 History [Adderall] Sertraline [Zoloft] 25 mg PO DAILY 06/14/20 10/21/20 History lamoTRIgine [LaMICtal] 400 mg PO DAILY 06/14/20 10/21/20 History Ibuprofen [Advil] 200 - 400 mg PO Q6H PRN 07/02/20 10/21/20 History Acetaminophen [Tylenol Extra 500 mg PO Q4-6H PRN 10/14/20 10/21/20 History Strength] Cyclobenzaprine [Flexeril] 10 mg PO HS PRN #40 tab 10/19/20 10/21/20 Rx Gabapentin 300 mg PO TID 3 Days #9 cap 10/19/20 10/21/20 Rx Sennosides/Docusate Sodium [Senna 1 tab PO BID PRN 10/21/20 10/21/20 History Plus 8.6-50 mg Softgel] cefaDROXiL [Duricef] 500 mg PO Q12H 10/21/20 10/21/20 History oxyCODONE-APAP 5-325MG [Percocet 1 - 2 tab PO Q4-6H PRN 10/21/20 10/21/20 History 5-325 mg] Allergies Allergy/AdvReac Type Severity Reaction Status Date / Time No Known Allergies Allergy Verified 10/21/20 11:10 Physical Examination Gen: AOx3, NAD VSS stable at this time Integument: The initial postoperative bandage was removed today at bedside. The peroneal tape and glue system is in good position and condition. There is some superficial blistering noted at the proximal right inch of the tape. The blisters are fluid filled, they are quite small at this time. There are no other significant areas of erythema There is mild swelling in the general area of the lumbar spine near the incision. Palpation: Patient is tender with palpation along the midline /paraspinal region of the lumbar spine. He is nontender with palpation throughout the cervical thoracic midline or paraspinal region. ROM: Range of motion is intact in all major muscle groups in the bilateral upper extremities Range of motion of all major muscle groups are intact in the bilateral lower extremities, there is some guarding appreciated with hip flexion, knee extension and knee flexion bilaterally Sensory Exam: Senory exam to light touch is intact C5-T1 Senosry exam to light touch is intact L2-S1 Motor: 5 out of 5 strength is appreciated in the bilateral upper extremities with shoulder abduction, forward elevation, elbow extension, elbow flexion, wrist extension, wrist flexion, finger intrinsics 3-4 out of 5 strength is appreciated in the bilateral lower extremities with hip flexion, knee extension, knee flexion, plantar flexion, dorsiflexion, EHL, FHL Strength deficits likely due to pain and being postoperative day #2 Reflexes: negative Arleth's bilaterally negative Babinski bilaterally negative clonus bilaterally Results - Diagnostic results CT Scan - lumbar: report reviewed, image reviewed Assessment and Plan Assessment: Low back pain Lumbar radiculopathy Postoperative day #2 status post L3-L5 decompression with laminectomy, Coflex placement at L3-L4 Plan: I was able to discuss the case, including his physical exam findings and imaging studies my attending Dr. Armas. A computed tomography scan of the lumbar spine was initially ordered. No acute fractures or dislocations were appreciated, surgical hardware is in adequate placement. Due to the patient's symptoms, we will plan to admit to the hospital at this time. Patient will be restarted on his Flexeril, gabapentin and oral pain medication in the form of oxycodone 5 mg/325 mg. We will also utilize IV Dilaudid as needed along with IV Decadron 4 mg every 6 hours. MRI of the lumbar spine without contrast will also be ordered Weight-bear as tolerated with walker GI and DVT prophylaxis, will discuss with attending Wound care: will recheck incision tomorrow, if blistering continues to worsen will remove surgical tape Further recommendations to follow Time with Patient: Less than 30
[2020-10-21] MEDS: HYDROmorphone 1 MG/ML 1 ML SYRINGE IVP PRN (14:55)
[2020-10-21] MEDS: polyethylene glycoL 3350 17 GM POWD.PACK PO SCH (15:51)
--- NOTE | 2020-10-21 16:17 | MR ---
EXAMINATION TYPE: MR lumbar spine wo con DATE OF EXAM: 10/21/2020 COMPARISON: 05/26/2020 HISTORY: Low back pain post decompression/laminectomy CONTRAST: 0 mL intravenous Gadavist. TECHNIQUE: Multiplanar, multisequence images of the lumbar spine were acquired. FINDINGS: L5-S1: Central subligamentous disc herniation is present with moderate anterior thecal sac compressio n. No thecal sac compression is evident. Exiting nerve roots appear normal. There is some mild forami nal narrowing present on the right facets are normal. L4-L5: There is a central disc herniation extending posterior to the L3 level. This is mild anterior thecal sac compression. This may have enlarged slightly over the interval. No AP spinal canal stenosi s is present. Neural foramen are patent. L3-L4: Mild disc bulge has anterior thecal sac flattening. No AP spinal canal stenosis is present. So me facet hypertrophy is present with posterior lateral thecal sac contact. L2-L3: No significant disc bulge or disc herniation. No spinal canal stenosis. No foraminal stenosi s. Neural foramen are patent.. L1-L2: No significant disc bulge or disc herniation. No spinal canal stenosis. No foraminal stenosi s. Neural foramen are patent.. T12-L1: No significant disc bulge or disc herniation. No spinal canal stenosis. No foraminal stenos is. Neural foramen are patent.. IMPRESSION: 1. Moderate-sized disc herniation L4-5 with mild anterior thecal sac compression. No stenosis is pres ent. 2. Central subligamentous disc herniation L5-S1. No stenosis is present. 3. Mild disc bulging L3-4 with anterior thecal sac flattening.
[2020-10-21] MEDS: GABAPENTIN 300 MG CAP PO SCH ×2 (17:02→22:17)
[2020-10-21] MEDS ORDERED: DEXAMETHASONE SOD PHOSPHATE 10 MG/ML 1 ML VIAL IV PRN (17:43)
--- NOTE | 2020-10-21 17:43 | P.PN ---
Progress Note - Text Progress Note Date: 10/21/20 Spoke with pt and his about MRI and CT scan. He is comfortable at this time but whenever he moves has a lot of pain into his legs. He states some weakness in his legs as well and has had a bout of perineal tingling. There is no genital numbness at this time however, he is able to control his bladder, he is passing gas however has not had bm yet. States groin pain and LE pain that if he does not move is OK, but if he moves gets worse. Denies any other symptoms at this time.
[2020-10-21] MEDS ORDERED: DEXAMETHASONE SOD PHOSPHATE 4 MG/ML 1 ML VIAL IV SCH (18:00)
[2020-10-21] MEDS: oxyCODONE-APAP 5-325MG 1 EACH TAB PO PRN (20:17)
[2020-10-21] MEDS: CYCLOBENZAPRINE 10 MG TAB PO PRN (20:17)
--- NOTE | 2020-10-22 08:20 | MR ---
EXAMINATION TYPE: MR thoracic spine wo con DATE OF EXAM: 10/22/2020 COMPARISON: None HISTORY: leg weakness, severe pain CONTRAST: Performed utilizing 0 mL intravenous Gadavist gadolinium contrast. TECHNIQUE: Multiplanar, multiecho imaging on a 3.0 Nicole magnet is performed through the thoracic spi ne. Spinal cord maintains normal signal through its visualized course. Vertebral body alignment is normal. Vertebral body heights are preserved. Disc heights are preserved. Disc hydration levels are preserved. At T5-6 there is a tiny central protrusion with mild anterior thecal sac compression. No AP spinal ca nal stenosis present. There may be some cord contact with mild cord deformity. No spinal canal stenosis is evident. IMPRESSIONS: 1. Tiny central protrusion T5-T6 with mild cord contact and deformity. No spinal canal stenosis or si gnal abnormality within the spinal cord is evident.
[2020-10-22] MEDS: GABAPENTIN 300 MG CAP PO SCH ×3 (09:04→21:55)
[2020-10-22] MEDS: SENNOSIDES 8.6 MG TAB PO SCH (09:04)
[2020-10-22] MEDS: polyethylene glycoL 3350 17 GM POWD.PACK PO SCH (09:04)
[2020-10-22] MEDS: HYDROmorphone 1 MG/ML 1 ML SYRINGE IVP PRN (09:32)
[2020-10-22] MEDS ORDERED: DEXAMETHASONE SOD PHOSPHATE 4 MG/ML 1 ML VIAL IV PRN ×2 (12:23→18:29)
--- NOTE | 2020-10-22 12:27 | P.PN ---
Subjective Progress Note Date: 10/22/20 Principal diagnosis: Low-back pain, lumbar radiculopathy, status post L3-L4, L4-L5 decompression with Coflex placement at L3-L4 Patient was examined today at bedside, he is resting comfortably. Patient states his symptoms have improved with regards to the low back pain and also the radicular pain that he was getting into the hips and groin area. He states that the radicular pain that he notices in the bilateral legs normally is also improved. He has not had a bowel movement yet, he is moving gas. He has no loss of bowel or bladder control at this time. He denies any genital numbness or tingling at this time. Objective - Vital Signs Vital signs: Vital Signs Temp 97.7 F 10/22/20 09:43 Pulse 67 10/22/20 09:43 Resp 17 10/22/20 09:43 BP 130/84 10/22/20 09:43 Pulse Ox 97 10/22/20 09:43 Intake & Output 10/21/20 10/22/20 10/22/20 18:59 06:59 18:59 Weight 99.79 kg Other: Voiding Method Toilet # Voids 2 - Exam Gen: AOx3, NAD VSS stable at this time Integument: The initial postoperative bandage was removed today at bedside. The peroneal tape and glue system is in good position and condition. There is some super ficial blistering noted at the proximal right inch of the tape. The blisters are fluid filled, they are quite small at this time. There are no other significant areas of erythema There is mild swelling in the general area of the lumbar spine near the incision. Palpation: Patient is tender with palpation along the midline /paraspinal region of the lumbar spine. He is nontender with palpation throughout the cervical thoracic midline or paraspinal region. ROM: Range of motion is intact in all major muscle groups in the bilateral upper extremities Range of motion of all major muscle groups are intact in the bilateral lower extremities, there is some guarding appreciated with hip flexion, knee extension and knee flexion bilaterally Sensory Exam: Senory exam to light touch is intact C5-T1 Senosry exam to light touch is intact L2-S1 Motor: 5 out of 5 strength is appreciated in the bilateral upper extremities with shoulder abduction, forward elevation, elbow extension, elbow flexion, wrist extension, wrist flexion, finger intrinsics 4 out of 5 strength is appreciated in the bilateral lower extremities with hip flexion, knee extension, knee flexion, plantar flexion, dorsiflexion, EHL, FHL Strength deficits likely due to pain and being postoperative day #3 Reflexes: negative Arleth's bilaterally negative Babinski bilaterally negative clonus bilaterally Assessment and Plan Assessment: Low back pain Lumbar radiculopathy Postoperative day #3 status post L3-L5 decompression with laminectomy, Coflex placement at L3-L4 Plan: MRIs of both the thoracic and lumbar spine have been reviewed with Dr. Armas. No acute findings to suggest surgical intervention at this time. Patient's symptoms have continued to improve on current treatment. We'll continue with current oral medication, this to include muscle relaxer, gabapentin and oral pain medication. We will also utilize the 4 mg of Decadron every 6 hours. Plan is to transition patient to a Medrol Dosepak discharge Regular diet Weight-bear as tolerated with walker GI and DVT prophylaxis Wound care: Blistering has not changed, continue to monitor Patient will remain in the hospital for 1 additional day, we will continue with the current treatment. Hopefully discharge to home on 10/23/2020.
[2020-10-22] MEDS: oxyCODONE-APAP 5-325MG 1 EACH TAB PO PRN ×2 (14:10→21:59)
[2020-10-22] MEDS: CYCLOBENZAPRINE 10 MG TAB PO PRN (22:00)
[2020-10-23] MEDS: NON FORMULARY DRUG (Dextroamphetamine/Amphetamine [Adderall] 10 MG Tablet) PO SCH ×2 (02:07→07:59)
[2020-10-23] MEDS: oxyCODONE-APAP 5-325MG 1 EACH TAB PO PRN (07:57)
[2020-10-23] MEDS: GABAPENTIN 300 MG CAP PO SCH (07:58)
[2020-10-23] MEDS: SENNOSIDES 8.6 MG TAB PO SCH (07:58)
[2020-10-23] MEDS: polyethylene glycoL 3350 17 GM POWD.PACK PO SCH (07:58)
--- NOTE | 2020-10-23 08:01 | P.PN ---
Subjective Progress Note Date: 10/23/20 Principal diagnosis: Low-back pain, lumbar radiculopathy, status post L3-L4, L4-L5 decompression with Coflex placement at L3-L4 Patient was examined today at bedside, he is resting comfortably. Patient's symptoms continue to improve with regards to his low back pain along with radicular symptoms. Patient still has not had a bowel movement, he is passing gas. Objective - Vital Signs Vital signs: Vital Signs Temp 97.9 F 10/23/20 02:21 Pulse 70 10/23/20 02:21 Resp 15 10/23/20 02:21 BP 124/82 10/23/20 02:21 Pulse Ox 95 10/23/20 02:21 Intake & Output 10/22/20 10/23/20 10/23/20 18:59 06:59 18:59 Other: Voiding Method Toilet Toilet # Voids 2 2 - Exam Gen: AOx3, NAD VSS stable at this time Integument: Surgical tape is in good position and condition, the blisters remain unchanged. Palpation: Patient is tender with palpation along the midline /paraspinal region of the lumbar spine. He is nontender with palpation throughout the cervical thoracic midline or paraspinal region. ROM: Range of motion is intact in all major muscle groups in the bilateral upper extremities Range of motion of all major muscle groups are intact in the bilateral lower extremities, there is some guarding appreciated with hip flexion, knee extension and knee flexion bilaterally Sensory Exam: Senory exam to light touch is intact C5-T1 Senosry exam to light touch is intact L2-S1 Motor: 5 out of 5 strength is appreciated in the bilateral upper extremities with shoulder abduction, forward elevation, elbow extension, elbow flexion, wrist e xtension, wrist flexion, finger intrinsics 4 out of 5 strength is appreciated in the bilateral lower extremities with hip flexion, knee extension, knee flexion, plantar flexion, dorsiflexion, EHL, FHL Strength deficits likely due to pain and being postoperative day #3 Reflexes: negative Arleth's bilaterally negative Babinski bilaterally negative clonus bilaterally Assessment and Plan Assessment: Low back pain Lumbar radiculopathy Postoperative day #4 status post L3-L5 decompression with laminectomy, Coflex placement at L3-L4 Plan: Patient continues to improve with current treatment. At this time I feel he is stable for discharge to home. We will place patient on Medrol Dosepak upon discharge. We will also prescribe one additional Duricef 500 mg every 12 hours, along with oxycodone 5 mg/325 mg. Wound care instructions were discussed with the patient Activity level restrictions were discussed with patient Plan for discharge home today Time with Patient: Less than 30
--- NOTE | 2020-10-23 08:08 | P.DS ---
Providers Date of admission: 10/21/20 12:40 Expected date of discharge: 10/23/20 Attending physician: Jose David Armas DO Primary care physician: Lele Guerin Hospital Course: Date of admission: 10/21/2020 Date of discharge: 10/23/2020 Admission diagnosis: Lumbar back pain, lumbar radiculopathy, history of recent lumbar decompression with fusion Discharge diagnosis: Same Attending physician: Dr. Armas Surgical procedures: None Brief history: Patient is a 49-year-old male who presented to [facility] on 10/21/2020 with worsening low back pain and lumbar radicular symptoms. Patient recently underwent a lumbar decompression with fusion by Dr. Armas on 10/19/2020. Due to the pain and worsening symptoms, patient presents to Hospital for further evaluation. Hospital course: After being admitted to the hospital, thoracic and lumbar MRIs were done to further evaluate spine. There are no acute processes that warranted surgical intervention. She was started on IV pain medication, oral pain medication and IV steroids. Patient's symptoms improve over the next few days. Plan was for discharge to home. Discharge condition/disposition: Patient will be discharged home in stable condition. Discharge medications: Instructions are given on resumption of patient's normal daily medications per primary care recommendation, in addition patient will be prescribed oxycodone 5 mg/325 mg, Duricef 500 mg, Miralax, Medrol Dosepak Patient Condition at Discharge: Fair Plan - Discharge Summary New Discharge Prescriptions: New cefaDROXiL [Duricef] 500 mg PO Q12HR #14 cap methylPREDNISolone [Medrol Dose Pack] 4 mg PO DIRECTED #1 pack oxyCODONE HCL/ACETAMINOPHEN [oxyCODONE HCL/ACETAMINOPHEN 5-325] 1 tab PO Q4H PRN 3 Days #42 tab PRN Reason: Pain polyethylene glycoL 3350 [Miralax] 17 gm PO DAILY PRN #10 packet PRN Reason: Constipation No Action lamoTRIgine [LaMICtal] 400 mg PO DAILY Dextroamphetamine/Amphetamine [Adderall] 10 mg PO BID Sertraline [Zoloft] 25 mg PO DAILY Ibuprofen [Advil] 200 - 400 mg PO Q6H PRN PRN Reason: Pain oxyCODONE-APAP 5-325MG [Percocet 5-325 mg] 1 - 2 tab PO Q4-6H PRN PRN Reason: Pain Sennosides/Docusate Sodium [Senna Plus 8.6-50 mg Softgel] 1 tab PO BID PRN PRN Reason: Constipation Acetaminophen [Tylenol Extra Strength] 500 mg PO Q4-6H PRN PRN Reason: Pain Cyclobenzaprine [Flexeril] 10 mg PO HS PRN #40 tab PRN Reason: Spasms Gabapentin 300 mg PO TID 3 Days #9 cap cefaDROXiL [Duricef] 500 mg PO Q12H Discharge Medication List Dextroamphetamine/Amphetamine [Adderall] 10 mg PO BID 06/14/20 [History] Sertraline [Zoloft] 25 mg PO DAILY 06/14/20 [History] lamoTRIgine [LaMICtal] 400 mg PO DAILY 06/14/20 [History] Ibuprofen [Advil] 200 - 400 mg PO Q6H PRN 07/02/20 [History] Acetaminophen [Tylenol Extra Strength] 500 mg PO Q4-6H PRN 10/14/20 [History] Cyclobenzaprine [Flexeril] 10 mg PO HS PRN #40 tab 10/19/20 [Rx] Gabapentin 300 mg PO TID 3 Days #9 cap 10/19/20 [Rx] Sennosides/Docusate Sodium [Senna Plus 8.6-50 mg Softgel] 1 tab PO BID PRN 10/21/20 [History] cefaDROXiL [Duricef] 500 mg PO Q12H 10/21/20 [History] oxyCODONE-APAP 5-325MG [Percocet 5-325 mg] 1 - 2 tab PO Q4-6H PRN 10/21/20 [History] cefaDROXiL [Duricef] 500 mg PO Q12HR #14 cap 10/23/20 [Rx] methylPREDNISolone [Medrol Dose Pack] 4 mg PO DIRECTED #1 pack 10/23/20 [Rx] oxyCODONE HCL/ACETAMINOPHEN [oxyCODONE HCL/ACETAMINOPHEN 5-325] 1 tab PO Q4H PRN 3 Days #42 tab 10/23/20 [Rx] polyethylene glycoL 3350 [Miralax] 17 gm PO DAILY PRN #10 packet 10/23/20 [Rx] Follow up Appointment(s)/Referral(s): Lele Guerin DO [Primary Care Provider] - 1-2 days Jose David Armas DO [Doctor of Osteopathic Medicine] - 1 Week Activity/Diet/Wound Care/Special Instructions: Spine Discharge and Recovery Instructions Medications: See medication list All medication refills should be obtained through your primary care doctor or your clinic spine surgeon. Please discuss prescription refills at your follow up appointment. Do not call the hospital for medication refills. Dressing: Leave your dressing in place for a total of 5 days post operatively. Then you may remove your dressing and leave open to air. Keep the area clean and if not able to keep area clean, then cover with sterile gauze and tape. Showering: You may shower 3 days after your procedure allowing soap and water to run over incision. Do not scrub. Do not soak. Blot dry. Follow up: Please confirm a follow up appointment with your surgeon 3 weeks post operatively. Please make an appointment to follow up with your PCP in 1-2 weeks after surgery for evaluation 3 phase, 3-week plan POST OP WEEKS 1-3 1. Lifting/carrying/pushing/pulling limited to less than 5 pounds. 2. Do not sit for longer than 15 minutes at one time. Get up and walk around. Prolonged sitting is NOT advised. If you lay down, see if you can tolerate laying down on you front (belly side) 3. Walk for periods of 15 minutes = 1 mile but no longer; do it multiple times times each day. 4. Ice your low back after activity. POST OP WEEKS 3-6 1. Lifting limited to less than 20 pounds. 2. Do not sit for longer than 30 minutes at a time. Frequently change positions. Use a sit-to stand workstation or take frequent breaks from sitting if you have returned to work. 3. Walk for 30 minutes each day. If possible, do these three or more times a day POST OP WEEKS 6+ At your 6-week appointment we will give you a physical therapy referral to focus on a core stabilization and strengthening program. You should also work on leg & buttock strengthening, hamstring & quadriceps stretching, and continue a low impact aerobic activity program such as swimming, walking, or riding a stationary bicycle. During the initial 6 weeks after your surgery, you are at the highest risk of re-injuring your spine. You should generally avoid BLTs (bending, lifting and twisting combination motions) and follow the above guidelines to reduce the chance of reinjury. You can anticipate post op appointments in our office at approximately 3 weeks and 6 weeks after your surgery. INCISION CARE: If your incision is not draining you do NOT need to cover it with a dressing. Keep your incision clean, dry and intact. In most cases, we apply skin glue, alice or sutures to the incision at the time of surgery. This will be like a crust or have the appearance of a scab and will fall off in time on its own. The stitches or alice need to be removed at 3 weeks post op appointment. You may begin to shower 3 days after surgery (this allows the glue to sousa well). However, please avoid scrubbing the incision site or peeling off any of the skin glue. This will ensure optimal healing of your incision. Also, during this time avoid soaking the incision area in water - this includes swimming pools, hot tubs or baths. No ointments, lotions or oils on the incision until your surgeon allows. Leave alice, sutures or glue in place. Neurological dysfunction that comes on suddenly can also be a sign of a stroke. Below some common symptoms of a stroke are listed: B - balance difficulty such as sudden onset walking or leaning to one side - NEW E - eye problem such as sudden double vision or trouble seeing on one side - NEW F - Facial weakness or numbness on one side - NEW A - Arm or leg weakness or numbness on one side - NEW S - Slurred speech or difficulty with word finding - NEW T - Time is BRAIN! Call 911 as soon as you recognize these symptoms Diet: Consume a regular diet rich in vegetables and lean protein such as chicken or fish. You should consume in a ratio of approximately 20% fats|40% carbohydrates|40%protein. Vegetables, sweet potatoes, brown rice or quinoa are examples of good carbohydrates. Chips, white bread, cookies and sweets/sugar are examples of bad carbohydrates. Limit your bad carbs, go wild with good carbs. "Life's Simple 7" Guidelines as per [employer] [employer] These will help you reclaim your life after surgery and cabinetmaker helper in your recovery, keeping in mind your restrictions. (1) Get Active. Physical activity can help people lose weight, control high blood pressure and cholesterol, feel emotionally better, and sleep better. (2) Control Cholesterol. Avoid a diet high in saturated fat, trans fat, & cholesterol. Limit whole milk & cream, ice cream, butter, egg yolks, processed meats (like sausage and hot dogs), and fatty meats. Choose healthy foods that are low in saturated fat, trans fat and cholesterol which include: Fruits and vegetables, fiber rich grain products (like whole grain pasta and brown rice), lean meat such as chicken, fish, nuts, seeds, and legumes. (3) Eat Better. Eat small portions. Shop at the grocery with a list and do not stray from it. Tips for a healthy diet include: Limit sodium intake to less than 1500mg daily, avoid prepackaged, processed, and fast foods, choose a diet rich in fruits, vegetables, and whole grain, high fiber foods, and limit saturated & cholesterol in your diet. (4) Manage Blood Pressure. If you have high blood pressure, you should have a cuff at home so that you can check your blood pressure regularly. Be sure you have a good cuff. An arm one is generally better than a wrist one. Bring the cuff to a doctor's appointment to validate that the measurements that your cuff are taking are accurate. Take your blood pressure twice daily when you are sitting down and relaxing. Record the numbers in a log and bring this log with you to your doctors' appointments. (5) Lose Weight if your BMI is above 25. A healthy BMI is between 19-25. To calculate Your BMI, you may use a Standard BMI Calculator on the NIH BMI website: <www.nhlbi.nih.gov/guidelines/obesity/BMI/bmicalc.htm>. Weigh oneself daily. If you are overweight, set a goal to lose weight. A pound a week loss if needed is a good target. (6) Reduce Blood Sugar. Limit foods and liquids with "added sugars." (Added sugars include sucrose, fructose, glucose, maltose, dextrose, high fructose corn syrup, corn syrup, concentrated fruit juice and honey). (7) Stop Smoking. If you smoke, quitting smoking is one of the best things that you can do for your health. Smoking increases your risk of heart attack, stroke, and peripheral vascular disease, which is a build-up of plaque in your arteries. Please discard all the cigarettes and lighters in your house. Have a plan for what you will do when you have the urge to smoke. Direct and second- hand smoke shortens your life as well as the lives of your family, friends and others around you. For your health and the health of those around you, please co nsider quitting! Proper Bending Body Mechanics: Maintain a wide stance with one foot slightly in front of the other. Keep your back straight. Bend utilizing the strength in your hips and knees. Do not bend at the waist. Maintain the lifted object at your waist-level close to your body. Avoid lifting weight that causes immediately pain or pain anywhere in the body afterwards. Smoking/Nicotine If there was ever one thing that you could do to increase your overall health, decrease your risk of cardiovascular problems by about 39% the second you make the choice, it is to STOP SMOKING. Your body's most instant gratification is the second you stop smoking. We have all heard the studies, read the articles but it is true, smoking is extremely bad for your overall health, and moreover it is detrimental to your bone health. Nicotine, IN ANY FORM, kills bone cells, prevents your body from healing fractures, and significantly prolongs healing after surgery. In spine surgery specifically, it increases your risk of not healing your bones to create a fusion and increases your risk of having a revision surgery due to this up to 60%. I know it is hard. I know it feels impossible. But there are ways. Take control of your life. We are here to help you through it. And when you are ready, ask us and we can direct you to help if you desire. Use the START Plan to Quit Smoking (please visit the Helpguide.org website listed below for more information): S = Set a quit date. Choose a date within the next 2 weeks, so you have enough time to prepare without losing your motivation to quit. If you mainly smoke at work, quit on the weekend, so you have a few days to adjust to the change. T = Tell family, friends, and co-workers that you plan to quit. Let your friends and family in on your plan to quit smoking and tell them you need their support and encouragement to stop. Look for a quit howard who wants to stop smoking as well. You can help each other get through the rough times. A = Anticipate and plan for the challenges you'll face while quitting. Most people who begin smoking again do so within the first 3 months. You can help yourself make it through by preparing ahead for common challenges, such as nicotine withdrawal and cigarette cravings. R = Remove cigarettes and other tobacco products from your home, car, and work. Throw away all your cigarettes (no emergency pack!), lighters, ashtrays, and matches. Wash your clothes and freshen up anything that smells like smoke. Shampoo your car, clean your drapes and carpet, and steam your furniture. T = Talk to your doctor about getting help to quit. Your doctor can prescribe medication to help with withdrawal and suggest other alternatives. If you can't see a doctor, you can get many products over the counter at your local pharmacy or grocery store, including the nicotine patch, nicotine lozenges, and nicotine gum. Resources for Quitting Smoking: <https://www.[place].gov/documents/[facility]/Quit_Tobacco_Resources_for_patients_313 480_7.pdf> Supplementation: Take recommended dosages of Vitamin D and Calcium to help fortify your bones and help them to heal. See your health maintenance packet for dosages and recommended levels. DVT/VTE prophylaxis: You will be given compression stockings from the hospital. Wear these daily for the first two weeks after surgery. You may take them off at night. You may be prescribed a medication to help thin your blood. Take this as directed. If you are not prescribed this medication, early and frequent ambulation has been shown to be the best prophylaxis to deep vein thrombosis and sequelae related to this event. Discharge Disposition: HOME SELF-CARE
[2020-10-23 08:51] VITALS: BP 132/85; PULSE 64; RESP 18; TEMP 97.6
[2020-10-23] MEDS ORDERED: SERTRALINE 25 MG TAB PO SCH (09:00)
[2020-10-23] MEDS ORDERED: lamoTRIgine 100 MG TAB PO SCH (09:00)
== END 2020-10-23 09:45 | disposition home or self-care (01) ==
LOC: EC 09:06 → 4SSUR 12:40
PROVIDERS: ADMIT Orthopaedic Surgery; ATTEND Orthopaedic Surgery
DX: M54.16 Radiculopathy, lumbar region (principal); M43.26 Fusion of spine, lumbar region; R10.2 Pelvic and perineal pain; Z20.822 Contact with and (suspected) exposure to COVID-19; R53.1 Weakness; R23.8 Other skin changes; R20.0 Anesthesia of skin; F90.9 Attention-deficit hyperactivity disorder, unspecified type; F41.9 Anxiety disorder, unspecified; Z98.1 Arthrodesis status; Z79.899 Other long term (current) drug therapy; Z90.49 Acquired absence of other specified parts of digestive tract; Z98.890 Other specified postprocedural states; Z87.891 Personal history of nicotine dependence; Z82.49 Family history of ischemic heart disease and other diseases of the circulatory system; Z83.3 Family history of diabetes mellitus; R10.30 Lower abdominal pain, unspecified; K59.00 Constipation, unspecified
CPT/HCPCS: 96376 ×3; 96365; 96366; 96375; 99285; 87635; 72131; 72146; 72148; G0378 ×3; J1100 ×3; J0690 ×2; J2405; J1170 ×3

== ENCOUNTER → 2021-12-16 | Outpatient (CLI) | payer BC ==
[2021-12-16 14:16] LABS: ALT 49 U/L (10-49); AST 30 U/L (14-35); African American GFR (CKD) 108.4 (60.0-200.0); Albumin 4.6 g/dL (3.8-4.9); Albumin/Globulin Ratio 1.63 (1.60-3.17); Alkaline Phosphatase 57 U/L (41-126); BUN/Creat Ratio 11.22 Ratio (12.00-20.00); Blood Urea Nitrogen 10.6 mg/dL (9.0-27.0); Calcium 9.5 mg/dL (8.7-10.3); Chloride 103 mmol/L (96-109); Chol/HDL Ratio 3.94 Ratio; Globulin 2.8 g/dL (1.6-3.3); Glucose 159 mg/dL (70-110); LDL Cholesterol,Calculated 113.7 mg/dL (0.0-131.0); Non-African American GFR(CKD) 93.6 (60.0-200.0); Potassium 4.5 mmol/L (3.5-5.5); Sodium 138 mmol/L (135-145); Total Protein 7.5 g/dL (6.2-8.2)
== END | disposition home or self-care (01) ==
LOC: LABWHC1 08:28
PROVIDERS: ATTEND Family Medicine
DX: E11.9 Type 2 diabetes mellitus without complications (principal); E78.5 Hyperlipidemia, unspecified
CPT/HCPCS: 36415; 80053; 80061; 83036

== ENCOUNTER 2022-03-14 07:48 | Day surgery (SDC) | payer BC ==
[~2022-03-14 07:48] MED LIST changes: -ACETAMINOPHEN TAB 500 MG TAB PO PRN; -DEXAMETHASONE SOD PHOSPHATE 4 MG/ML 1 ML VIAL IV ONE; -GABAPENTIN 300 MG CAP PO PRN; -MIDAZOLAM 2 MG/2 ML VIAL IV PRN; -ONDANSETRON 4 MG/2 ML VIAL IVP ONE; -ONDANSETRON 4 MG/2 ML VIAL IVP PRN; -TRANEXAMIC ACID 1,000 MG in SODIUM CHLORIDE 0.9% 100 ML IVPB PRN
[2022-03-14 08:13] VITALS: TEMP 96.9
[2022-03-14 08:22] LABS: Glucose,Whole Blood 236 mg/dL (70-110)
[2022-03-14] MEDS ORDERED: PROPOFOL 10 MG/ML 20 ML VIAL IV ONE (08:25)
--- NOTE | 2022-03-14 08:27 | P.GSHP ---
History of Present Illness H&P Date: 03/14/22 Chief Complaint: Colon cancer screening 51-year-old male here today for colonoscopy. He has not had one previously. Family history of colon cancer in his maternal grandfather. No bowel complaints. Past Medical History Past Medical History: Diabetes Mellitus, Sleep Apnea/CPAP/BIPAP Additional Past Medical History / Comment(s): no CPAP use History of Any Multi-Drug Resistant Organisms: None Reported Past Surgical History: Back Surgery, Cholecystectomy, Orthopedic Surgery Additional Past Surgical History / Comment(s): L tear duct replaced, bilateral eyes lasik surgery for vision correction in 2018. pain procedures, carpal tunnel surgery Past Anesthesia/Blood Transfusion Reactions: No Reported Reaction Smoking Status: Former smoker - Past Family History Father Additional Family Medical History / Comment(s): Stents X2. Father had his OK in his mid 50s. Mother Family Medical History: No Reported History Medications and Allergies Home Medications Medication Instructions Recorded Confirmed Type Dextroamphetamine/Amphetamine 30 mg PO BID 06/14/20 03/14/22 History [Adderall] Sertraline [Zoloft] 75 mg PO DAILY 06/14/20 03/14/22 History lamoTRIgine [LaMICtal] 400 mg PO DAILY 06/14/20 03/14/22 History ARIPiprazole [Abilify] 10 mg PO DAILY 03/09/22 03/14/22 History Glimepiride [Amaryl] 4 mg PO [id number] 03/09/22 03/14/22 History Allergies Allergy/AdvReac Type Severity Reaction Status Date / Time No Known Allergies Allergy Verified 03/14/22 08:08 Surgical - Exam Vital Signs Temp Pulse Resp BP Pulse Ox 96.9 F L 85 18 140/85 97 03/14/22 08:07 03/14/22 08:07 03/14/22 08:07 03/14/22 08:07 03/14/22 08:07 Physical exam: General: Well-developed, well-nourished HEENT: Normocephalic, sclerae nonicteric Abdomen: Nontender, nondistended Extremities: No edema Neuro: Alert and oriented Results - Labs Abnormal Lab Results - Last 24 Hours (Table) 03/14/22 Range/Units 08:19 POC Glucose (mg/dL) 236 H (70-110) mg/dL Assessment and Plan (1) Colon cancer screening Narrative/Plan: Will proceed with colonoscopy at this time. Current Visit: Yes Status: Acute Code(s): Z12.11 - ENCOUNTER FOR SCREENING FOR MALIGNANT NEOPLASM OF COLON SNOMED Code(s): 570289554
--- NOTE | 2022-03-14 08:48 | P.PCN ---
Date of Procedure: 03/14/22 Procedure(s) Performed: PREOPERATIVE DIAGNOSIS: Colon cancer screening POSTOPERATIVE DIAGNOSIS: Colon polyps, diverticulosis PROCEDURE: Colonoscopy with snare polypectomy ANESTHESIA: MAC SURGEON: Miguel Cruz M.D. SPECIMENS: Polyps ENDOSCOPIC PROCEDURE: The patient was placed on the endoscopy table in the left decubitus position. The Olympus colonoscope was inserted into the anus and passed under direct visualization to the base of the cecum. The appendiceal orifice was visualized. From that point the scope was slowly withdrawn inspecting all surfaces carefully. There were no neoplastic inflammatory or polypoid lesions throughout the cecum or ascending colon. In the transverse colon was small polyp was seen and removed using the snare with cautery technique. Another small polyp was seen in the descending colon and another small polyp was seen in the sigmoid colon both removed using the snare with cautery technique. The remainder of the sigmoid and rectum appeared normal. There was mild left-sided diverticulosis. Digital rectal examination was normal. The patient was taken to the recovery room in stable condition per anesthesia guidelines. RECOMMENDATIONS: Await biopsy results. Anticipate repeat colonoscopy 5 years.
[2022-03-14 09:01] VITALS: RESP 16
[2022-03-14 09:11] VITALS: BP 144/95; PULSE 75
== END 2022-03-14 09:34 | disposition home or self-care (01) ==
LOC: ORWHC2ENDO 07:48
PROVIDERS: ATTEND Surgery
DX: Z12.11 Encounter for screening for malignant neoplasm of colon (principal); D12.4 Benign neoplasm of descending colon; D12.5 Benign neoplasm of sigmoid colon; K57.30 Diverticulosis of large intestine without perforation or abscess without bleeding; E11.9 Type 2 diabetes mellitus without complications; G47.30 Sleep apnea, unspecified; F32.A Depression, unspecified; F90.9 Attention-deficit hyperactivity disorder, unspecified type; Z90.49 Acquired absence of other specified parts of digestive tract; Z80.0 Family history of malignant neoplasm of digestive organs; Z87.891 Personal history of nicotine dependence; Z79.899 Other long term (current) drug therapy
CPT/HCPCS: 88305; 45385; J2704

== ENCOUNTER → 2023-08-28 | Outpatient (CLI) | payer BC ==
--- NOTE | 2023-08-30 14:34 | MR ---
EXAMINATION TYPE: MR lumbar spine wo con DATE OF EXAM: 08/28/2023 COMPARISON: 10/21/2020 HISTORY: Low back pain for 6 months, history of corflex interlaminar stabilization clip implanted 3 y ears ago. CONTRAST: 0 mL intravenous . TECHNIQUE: Multiplanar, multisequence images of the lumbar spine were acquired. FINDINGS: Cord terminates at the T12-L1 level. There is mild disc desiccation L5-S1 and L4-5. L5-S1: No significant disc bulge or disc herniation. No spinal canal stenosis. No foraminal stenosi s. Mild facet hypertrophy is present. L4-L5: No significant disc bulge or disc herniation. Previous disc herniation appears resolved. Some mild flattening along the anterior thecal sac may be present. No spinal canal stenosis. Moderate rig ht foraminal stenosis is present. There is a right posterior vertebral body area of fluid signal surrounded by signal change within the superior endplate of L5. Correlate for prior surgical intervention. Schmorl's node formation or infe ction could be considered. L3-L4: Broad-based disc herniation in the left paracentral region is present. This has moderate anter ior thecal sac compression. No AP spinal canal stenosis is present. Correlate with left radicular sym ptoms. Moderate left and mild right foraminal narrowing is present. L2-L3: No significant disc bulge or disc herniation. No spinal canal stenosis. No foraminal stenosi s. L1-L2: No significant disc bulge or disc herniation. No spinal canal stenosis. No foraminal stenosis . T12-L1: No significant disc bulge or disc herniation. No spinal canal stenosis. No foraminal stenos is. Cord terminates at the L1 level. Vertebral body heights are preserved. Disc heights are preserved. Mi ld disc desiccation is present L4-5 and L5-S1. IMPRESSION: 1. Left paracentral disc herniation L3-4 with moderate anterior thecal sac compression. Correlate wit h left radicular symptoms. 2. Previous large L4-5 disc herniation appears resolved. 3. Posterior endplate changes of L4. Schmorl's node formation, prior surgical intervention, or infect ion could be considered. Follow-up as clinically indicated.
== END | disposition home or self-care (01) ==
LOC: RADMRIMAIN 18:44
PROVIDERS: ATTEND Orthopaedic Surgery
DX: M51.16 Intervertebral disc disorders with radiculopathy, lumbar region (principal)
CPT/HCPCS: 72148

== ENCOUNTER → 2023-10-25 | Outpatient (CLI) | payer BC ==
[2023-10-25 08:11] VITALS: BP 119/87; PULSE 92; RESP 16
--- NOTE | 2023-10-25 13:26 | P.PAINPG ---
PQRS Measure Charge Sheet Comment: HISTORY OF PRESENT ILLNESS: A 52 yr old male as a referral from Dr Armas presents today w severe and chronic LBP > 1 yr secondary to post laminectomy syndrome for evaluation. Pt states pain level is provoked at 6 /10 in intensity, constant, localized in the lumbar spine, predominantly axial, dull in character w occasional shooting pain towards the LLE. Pain is provoked by over activity. Pain is alleviated by physician guided home exercises/ stretches every morning since lumbar surgery in 2020, medications (Tyl, Ibu), manual massage, repositioning and rest . Oswestry axial pain score at 23. PMH: OA, IDDM II, CASSY, MDD/ Bipolar Disorder PSH: L4-S1 Laminectomy w Decompression & L4-L5 Coflex, Cholecystectomy, BL Lasik Surgery (2017), Colonoscopy w Polypectomy (2021), BL CTR SH: Former tobacco use, Occasional ETOH use, No illicit drug use FH: Fa- [place]. Mo- No Reported History All: See list Meds: See list REVIEW OF ORGAN SYSTEMS: CONSTITUTIONAL: No fevers or chills. No recent weight loss. NEUROLOGICAL: + numbness and tingling along the distal extremities. No seizure disorders or headaches. MUSCULOSKELETAL: + pain PSYCHIATRIC: Denies current depression or suicidal thoughts. Physical Examinations : Constitutional : Cooperative , not in acute distress . Neurologic : Cranial nerve II to XII intact. No focal neurological deficits. Psychiatric : alert & oriented x 3. Matching mood & appropriate affect. Judgment & insight intact. Musculoskeletal : Cervical Spine Motor strength in the deltoid and biceps: Normal right side. Normal Left side Motor strength biceps and the wrist extensors: Normal right side . Normal left side Motor strength in the triceps muscle: Normal right side. Normal left side Deep tendon reflexes: Normal at the biceps. Normal at Brachioradialis. Normal at triceps Vertebral body tenderness to deep palpation over Cervical facet loading test: positive bilaterally Spurling test: positive bilaterally Neck distraction test: positive bilaterally Arleth sign: positive bilaterally Lumbar spine +Incisional scar intact Motor strength lower extremities ,thigh and legs 5/5 Right side , 5/5 Left side Deep tendon reflexes : Normal Knee Jerk. Normal Ankle Jerk Vertebral body tenderness over L3 Lin Test positive BL L3-L4 Lumbar facet Loading Test: positive Right / positive Left Range of motion of the lumbar spine Flexion 30 degrees, extension 10 degrees Straight Leg Raise test: Left/ Right positive at degrees Red test: positive right / positive left. Severe tenderness over the Sacroiliac joint on the Right / Left sides Gaenslen test: positive bilaterally Seated flexion test: positive bilaterally. Sacral spine : Severe tenderness over the Sacroiliac joint: right side / left side Range of motion: Flexion of the lumbar spine <60 degrees Range of motion: Extension of the lumbar spine <20 degrees Gaenslen's Test positive Red test: positive right side / left side Thigh Thrust Test Sacral Thrust Test Imaging: MRI non contrast of the lumbar spine from 08/28/23 reviewed Assessment/ Plan : L4-S1 Laminectomy w Decompression & Coflex in L4-L5 Recommendation of JAMIE L3-L4 #1. May need a series of injections for optimal pain relief. Risks, benefits of procedure discussed and patient verbalized understanding. Admits to anti- coagulant use or medical history of diabetes. Protocol for discontinuation/ continuation of medications marilee procedure discussed. All questions answered. I have spent greater than 30 minutes on patient care today. Dr Clemente was available by phone for the evaluation of this patient. The time was used to review the medical records including relevant urine studies and Prescription history (MAPs), review of the available imaging, evaluation and examination of the patient, coordination of care with the medical staff and if applicable referring physicians, as well as creation of the medical record PQRS Narrative: Smoking Status Former smoker Hx Alcohol Use (MH) Yes: OCCASIONAL Home Medications: Ambulatory Orders Dextroamphetamine/Amphetamine [Adderall] 30 mg PO BID 06/14/20 Sertraline [Zoloft] 75 mg PO DAILY 06/14/20 lamoTRIgine [LaMICtal] 400 mg PO DAILY 06/14/20 ARIPiprazole [Abilify] 10 mg PO DAILY 03/09/22 Glimepiride [Amaryl] 4 mg PO AC-BRKFST 03/09/22 Controlled Substance Measures - Controlled Substance Measures Is patient prescribed a controlled substance at discharge?: No
== END ==
LOC: PNWHC3 07:26
PROVIDERS: ATTEND Specialist
DX: M51.16 Intervertebral disc disorders with radiculopathy, lumbar region (principal); M47.26 Other spondylosis with radiculopathy, lumbar region; M96.1 Postlaminectomy syndrome, not elsewhere classified; Z87.891 Personal history of nicotine dependence
CPT/HCPCS: 99211

== ENCOUNTER 2023-11-08 11:01 | Day surgery (SDC) | payer BC ==
[~2023-11-08 11:01] MED LIST changes: -LIDOCAINE 1% (10MG/ML) FOR IV START INTRADERMA PRN
[2023-11-08 12:08] VITALS: RESP 16; TEMP 97.9
[2023-11-08 12:14] LABS: Glucose,Whole Blood 269 mg/dL (70-110)
[2023-11-08] MEDS ORDERED: IOPAMIDOL M300 15ML VIAL ONE (12:54)
[2023-11-08] MEDS ORDERED: ROPIVACAINE 5MG/ML 20ML VIAL ONE (12:54)
[2023-11-08] MEDS ORDERED: methylPREDNISolone ACETATE 80 MG/ML 1 ML VIAL ONE (12:54)
[2023-11-08 13:23] VITALS: BP 120/85; PULSE 102
--- NOTE | 2023-11-08 13:24 | P.PCN ---
Description of Procedure: PREOPERATIVE DIAGNOSIS: 1- Lumbar Degenerative Disc Diseases 2-Lumbar spondylosis with Facet arthropathy without myelopathy. 3-lumbar spinal stenosis POSTOPERATIVE DIAGNOSIS: 1-lumbar degenerative disc disease. 2-lumbar spondylosis with facet arthropathy without myelopathy. 3-lumbar spinal stenosis. PROCEDURE Injection of radio contrast material into L2-3 interspace, interpretation of epidurogram, injection of steroid at L2-3 epidural space under fluoroscopic guidance. ANESTHESIA: Lidocaine 1% subcutaneously. In OR continuous pulse ox, EKG, blood pressure and verbal communication was maintained with the patient. EBL: Minimal PROCEDURE INDICATION: Before the procedure were discussed with the patient detailed procedure, alternatives, complications including infection, bleeding, nerve damage, paralysis all of which could be permanent. Patient understands and all questions were answered. PROCEDURE DESCRIPTION : After getting consent, patient in OR in prone position. Back was prepped with chlorhexidine and draped in sterile fashion. After injecting 10 mL of 1% lidocaine subcutaneously, a 20-gauge Tuohy needle was introduced at L2-3 interspace with loss of resistance technique using a syringe filled with air. L2-3 interspace was just above the Negative CSF, negative blood, nega surgical scar. tive paresthesia. Needle position was confirmed with AP and lateral view of the fluoroscope. After repeat negative aspiration 2 mL of Omnipaque 200 water soluble contrast was injected. Contrast was noted in the epidural space. No contrast was noted into intrathecal or intravascular space. After repeat negative aspiration 6 mL solution was injected intermittently which consists of 5 mL of preservative-free normal saline mixed with 1 mL of 80 mg Depo-Medrol. Needle was withdrawn intact. Skin was cleansed and Band-Aids was applied. DISPOSITION / PLANS: The patient tolerated the procedure well. No complication. The patient was placed in a supine position and transferred to the recovery area in a stable condition for observation. There was no evidence of lower extremity motor or sensory deficit after the procedure. Patient was discharged from the recovery room after meeting discharge criteria. Home discharge instructions were given to the patient by the staff. The patient was reexamined prior to discharge. The patient will schedule a follow up in the clinic in 2-4 weeks. CONSIDER NEXT INJ. CAUDAL JAMIE.
--- NOTE | 2023-11-08 13:27 | FL ---
EXAMINATION TYPE: FL guided pain mgmt statistic Intraoperative/procedural fluoroscopic services were provided. Total fluoroscopy time is 11.8 seconds with a total of 2 submitted images to PACS. Please s ee the operative/procedural note for further details. DAP: [id number] mGym2
== END 2023-11-08 13:28 | disposition home or self-care (01) ==
LOC: ORPAIN 11:01
PROVIDERS: ATTEND Pain Medicine Interventional Pain Medicine
DX: M47.816 Spondylosis without myelopathy or radiculopathy, lumbar region (principal); M48.061 Spinal stenosis, lumbar region without neurogenic claudication; M51.36 Other intervertebral disc degeneration, lumbar region; E11.9 Type 2 diabetes mellitus without complications
CPT/HCPCS: 62323; Q9967; J2795; J1010

== ENCOUNTER → 2023-11-29 | Outpatient (CLI) | payer BC ==
[2023-11-29 08:02] VITALS: BP 128/78; PULSE 92; RESP 16
--- NOTE | 2023-11-29 14:11 | P.PAINPG ---
PQRS Measure Charge Sheet Comment: HISTORY OF PRESENT ILLNESS: A 52 yr old male presents today w severe and chronic LBP > 1 yr secondary to post laminectomy syndrome for evaluation s/p JAMIE L2-L3 #1. Pt states he experienced 75 % pain relief x 3 wks s/p procedure. Pt states pain level is provoked at 6 /10 in intensity, constant, localized in the lumbar spine, predominantly axial, dull in character w occasional shooting pain towards the BLEs. Pain is provoked by over activity. Pain is alleviated by PT x 6 wks in 2020 (post lumbar surgery), physician guided home stretches every morning since lumbar surgery in 2020, medications , manual massage, repositioning and rest . Oswestry axial pain score at 22. Interventional procedures include JAMIE L2-L3 x1 Medications include Tyl, Ibu REVIEW OF ORGAN SYSTEMS: CONSTITUTIONAL: No fevers or chills. No recent weight loss. NEUROLOGICAL: + numbness and tingling along the distal extremities. No seizure disorders or headaches. MUSCULOSKELETAL: + pain PSYCHIATRIC: Denies current depression or suicidal thoug hts. Physical Examinations : Constitutional : Cooperative , not in acute distress . Neurologic : Cranial nerve II to XII intact. No focal neurological deficits. Psychiatric : alert & oriented x 3. Matching mood & appropriate affect. Judgment & insight intact. Musculoskeletal : Cervical Spine Motor strength in the deltoid and biceps: Normal right side. Normal Left side Motor strength biceps and the wrist extensors: Normal right side . Normal left side Motor strength in the triceps muscle: Normal right side. Normal left side Deep tendon reflexes: Normal at the biceps. Normal at Brachioradialis. Normal at triceps Vertebral body tenderness to deep palpation over Cervical facet loading test: positive bilaterally Spurling test: positive bilaterally Neck distraction test: positive bilaterally Arleth sign: positive bilaterally Lumbar spine +Incisional scar intact Motor strength lower extremities ,thigh and legs 5/5 Right side , 5/5 Left side Deep tendon reflexes : Normal Knee Jerk. Normal Ankle Jerk Vertebral body tenderness over L3 Lin Test positive BL L2-L3 Lumbar facet Loading Test: positive Right / positive Left Range of motion of the lumbar spine Flexion 30 degrees, extension 10 degrees Straight Leg Raise test: Left/ Right positive at degrees Red test: positive right / positive left. Severe tenderness over the Sacroiliac joint on the Right / Left sides Gaenslen test: positive bilaterally Seated flexion test: positive bilaterally. Sacral spine : Severe tenderness over the Sacroiliac joint: right side / left side Range of motion: Flexion of the lumbar spine <60 degrees Range of motion: Extension of the lumbar spine <20 degrees Gaenslen's Test positive Red test: positive right side / left side Thigh Thrust Test Sacral Thrust Test Imaging: MRI non contrast of the lumbar spine from 08/28/23 reviewed Assessment/ Plan : L4-S1 Laminectomy w Decompression & Coflex in L4-L5 Recommendation of JAMIE L3-L4 #2. May need a series of injections for optimal pain relief. Risks, benefits of procedure discussed and patient verbalized understanding. Admits to anti- coagulant use or medical history of diabetes. Protocol for discontinuation/ continuation of medications marilee procedure discussed. All questions answered. I have spent greater than 30 minutes on patient care today. Dr Clemente was available by phone for the evaluation of this patient. The time was used to review the medical records including relevant urine studies and Prescription history (MAPs), review of the available imaging, evaluation and examination of the patient, coordination of care with the medical staff and if applicable referring physicians, as well as creation of the medical record PQRS Narrative: Smoking Status Former smoker Hx Alcohol Use (MH) Yes: OCCASIONAL Home Medications: Ambulatory Orders Glimepiride [Amaryl] 4 mg PO AC-BRKFST 03/09/22 Cariprazine HCl [Vraylar] 3 mg PO DAILY 11/07/23 metFORMIN HCL 1,000 mg PO 1700 11/07/23 Controlled Substance Measures - Controlled Substance Measures Is patient prescribed a controlled substance at discharge?: No
== END ==
LOC: PNWHC3 07:34
PROVIDERS: ATTEND Specialist
DX: M96.1 Postlaminectomy syndrome, not elsewhere classified (principal); Z87.891 Personal history of nicotine dependence
CPT/HCPCS: 99211

== ENCOUNTER 2023-12-28 08:05 | Day surgery (SDC) | payer BC ==
[2023-12-28] MEDS ORDERED: IOPAMIDOL M200 10 ML VIAL ONE (09:20)
[2023-12-28] MEDS ORDERED: methylPREDNISolone ACETATE 40 MG/ML 1 ML VIAL ONE (09:20)
--- NOTE | 2024-02-12 18:19 | FL ---
EXAMINATION TYPE: FL guided pain mgmt statistic DATE OF EXAM: 01/10/2024 2:16 PM COMPARISON: Pre Operative Images if available both CT/MRI or plain film CLINICAL INDICATION: Male, 53 years old with history of LESI; TECHNIQUE: FL guided pain mgmt statistic, multiple fluoroscopic images provided for procedure. Total fluoroscopy time: 9.6 seconds Total submitted images to PACS: 2 DAP: [id number] mGym2 Gycm2 uGym2 cGycm2 or equivalent. FINDINGS: Fluoroscopic images during injection for pain management demonstrate multilevel degeneration changes throughout the spine. No evidence for fracture. No acute process identified. IMPRESSION: 1. No evidence for intraoperative complication. 2. Please see the operative/procedural note for further details. [facility], , 02/12/2024 6:17 PM
== END 2023-12-28 10:40 ==
LOC: ORPAIN 08:05
PROVIDERS: ATTEND Specialist
DX: M51.16 Intervertebral disc disorders with radiculopathy, lumbar region (principal); M47.26 Other spondylosis with radiculopathy, lumbar region
CPT/HCPCS: 62323

== ENCOUNTER 2024-02-19 06:27 | Day surgery (SDC) | payer BC ==
[2024-02-14 14:05] VITALS: BMI 29.9
[2024-02-19] MEDS: LACTATED RINGERS 1,000 ML IV SCH (06:57)
[2024-02-19 07:00] VITALS: TEMP 97.3
[2024-02-19] MEDS: IV FLUID CONTINUATION 1,000 ML IV ONE ×2 (07:00→07:54)
[2024-02-19 07:20] LABS: Glucose,Whole Blood 247 mg/dL (70-110)
[2024-02-19] MEDS ORDERED: MIDAZOLAM 2 MG/2 ML VIAL ONE (07:36)
[2024-02-19] MEDS ORDERED: fentaNYL (PF) 50 MCG/ML 2 ML AMP ONE (07:36)
[2024-02-19] MEDS ORDERED: ROPIVACAINE 5MG/ML 20ML VIAL ONE (07:36)
--- NOTE | 2024-02-19 07:51 | P.PCN ---
Date of Procedure: 02/19/24 Procedure(s) Performed: PREOPERATIVE DIAGNOSIS : 1- Lumbar spondylosis with Facet Arthropathy with out myelopathy . 2- Lumber degenerative disc disease POSTOPERATIVE DIAGNOSIS: 1- Lumbar spondylosis with Facet Arthropathy without myelopathy . 2- Lumber degenerative disc disease PROCEDURE: Diagnostic bilateral L1 , L2 , and L3 medial branch block under fluoroscopy guidance(fluoroscopy images available in the radiology Department ) ( To target the facet joint between Bilateral L2-3, and L3-4 )#1 st ANESTHESIA:moderate sedation with intravenous Versed 2 mg and Fentanyl 100 mcg.(Sedation start time 07:36, end time 07:46 ) EBL: Minimal COMPLICATION: None PROCEDURE INDICATION: Chronic low back pain secondary to Facet arthropathy unresponsive to conservative treatment. PROCEDURE DESCRIPTION: the patient was seen and identified in the preop holding area , risks and benefits and possible complications of the procedure and alternative were discussed with the patient, and the patient agreed to proceed with the procedure and signed the consent and vital signs monitored during the procedure and fluoroscopy was used to maximize the benefit and accuracy of the needle placement, and sedation was given to decrease patient anxiety, patient was taken to the procedure room and placed in prone position vital signs monitored in the back prepped with chlorhexidine X3 then under strict sterile technique using a right oblique fluoroscopy ,the junction of the transverse process and the superior articulating process of the right L1 , L2 , and L3 vertebra which corresponding to the fluoroscopy image of the eye of the Tomy dog on the block side for the medial branches and subsequently , after local infiltration of skin and subcu tissuies with Ropivacaine 0.5 % , one mL at each level ,then 22-gauge Quincke-type needles , 3 needle was used , each one of them placed at the junction of the base of the transverse process and the superior articular process at the appropriate level, and the needle was advanced until the periosteum contacted, needle placement confirmed with AP oblique and lateral view and after appropriate needle placement confirmed, and after negative aspiration for heme and CSF and there was no paresthesia 1-1/2 mL of Ropivacaine 0.5% , then half mL injected at each level after negative aspiration the needle subsequently removed and the same procedure repeated for the left side at left side at L1 , L2 and L3 levels. At the end of the procedure and the needles removed and a bandage applied after the skin was cleaned the cleaning solution patient taken to recovery room in stable condition and monitors in the recovery room for 20-30 minutes and discharged home in stable condition after discharge criteria met and patient will follow up with the pain clinic in 2-4 weeks
[2024-02-19 08:10] VITALS: BP 131/77; PULSE 91; RESP 18
--- NOTE | 2024-02-19 11:56 | FL ---
EXAMINATION TYPE: FL guided pain mgmt statistic DATE OF EXAM: 02/19/2024 FLUOROSCOPY HANNAH LUM FB INJ FL TIME 10.9 SECS AND DAP OF [id number]. 4 images submitted. [facility], , 02/19/2024 11:54 AM
== END 2024-02-19 08:19 | disposition home or self-care (01) ==
LOC: ORPAIN 06:27
PROVIDERS: ATTEND Specialist
DX: M47.816 Spondylosis without myelopathy or radiculopathy, lumbar region (principal)
CPT/HCPCS: 99152

== ENCOUNTER → 2024-02-28 | Outpatient (CLI) | payer BC ==
[2024-02-28 09:25] VITALS: BP 131/91; PULSE 91; RESP 16; TEMP 96.9
--- NOTE | 2024-02-28 13:56 | P.PAINPG ---
PQRS Measure Charge Sheet Comment: HISTORY OF PRESENT ILLNESS: A 53 yr old male presents today w severe and chronic LBP > 1 yr secondary to L4-S1 laminectomy w decompression for evaluation s/p BL MBB L2-L3/ L3-L4 #1. Pt states he experienced 100 % pain relief x 1 wk s/p procedure. Pt states pain level is provoked at 9 /10 in intensity, intermittent, localized in the lumbar spine, predominantly axial, dull in character without shooting pain. Pain is provoked by over activity. Pain is alleviated by PT x 6 wks in 2020 (post lumbar surgery), physician guided home stretches every morning since lumbar surgery in 2020, medications , manual massage, repositioning and rest . Interventional procedures include L4-S1 Laminectomy w Decompression, JAMIE L2-L3 x1, JAMIE L3-L4 x1, BL MBB L2-L3/ L3-L4 x1 Medications include Tyl, Ibu REVIEW OF ORGAN SYSTEMS: CONSTITUTIONAL: No fevers or chills. No recent weight loss. NEUROLOGICAL: + numbness and tingling along the distal extremities. No seizure disorders or headaches. MUSCULOSKELETAL: + pain PSYCHIATRIC: Denies current depression or suicidal thoughts. Physical Examinations : Constitutional : Cooperative , not in acute distress . Neurologic : Cranial nerve II to XII intact. No focal neurological deficits. Psychiatric : alert & oriented x 3. Matching mood & appropriate affect. Judgment & insight intact. Musculoskeletal : Cervical Spine Motor strength in the deltoid and biceps: Normal right side. Normal Left side Motor strength biceps and the wrist extensors: Normal right side . Normal left side Motor strength in the triceps muscle: Normal right side. Normal left side Deep tendon reflexes: Normal at the biceps. Normal at Brachioradialis. Normal at triceps Vertebral body tenderness to deep palpation over Cervical facet loading test: positive bilaterally Spurling test: positive bilaterally Neck distraction test: positive bilaterally Arleth sign: positive bilaterally Lumbar spine +Incisional scar intact Motor strength lower extremities ,thigh and legs 5/5 Right side , 5/5 Left side Deep tendon reflexes : Normal Knee Jerk. Normal Ankle Jerk Vertebral body tenderness over L3 Lin Test positive BL L2-L3 Lumbar facet Loading Test: positive Right / positive Left L2-L3, L3-L4 Range of motion of the lumbar spine Flexion 30 degrees, extension 10 degrees Straight Leg Raise test: Left/ Right positive at degrees Red test: positive right / positive left. Severe tenderness over the Sacroiliac joint on the Right / Left sides Gaenslen test: positive bilaterally Seated flexion test: positive bilaterally. Sacral spine : Severe tenderness over the Sacroiliac joint: right side / left side Range of motion: Flexion of the lumbar spine <60 degrees Range of motion: Extension of the lumbar spine <20 degrees Gaenslen's Test positive Red test: positive right side / left side Thigh Thrust Test Sacral Thrust Test Imaging: MRI non contrast of the lumbar spine from 08/28/23 reviewed Assessment/ Plan : L4-S1 Laminectomy w Decompression & Coflex in L4-L5 Recommendation of BL MBB L2-L3/ L3-L4 #2. May need a series of injections for optimal pain relief. Risks, benefits of procedure discussed and patient verbalized understanding. Admits to anti- coagulant use or medical history of diabetes. Protocol for discontinuation/ continuation of medications marilee procedure discussed. Minimal anesthesia including Fentanyl and Versed if clinically indicated. All questions answered. I have spent greater than 30 minutes on patient care today. Dr Clemente was available by phone for the evaluation of this patient. The time was used to review the medical records including relevant urine studies and Prescription history (MAPs), review of the available imaging, evaluation and examination of the patient, coordination of care with the medical staff and if applicable referring physicians, as well as creation of the medical record PQRS Narrative: Smoking Status Former smoker Hx Alcohol Use (MH) Yes: OCCASIONAL Home Medications: Ambulatory Orders Glimepiride [Amaryl] 4 mg PO AC-BRKFST 03/09/22 Cariprazine HCl [Vraylar] 3 mg PO DAILY 11/07/23 metFORMIN HCL 1,000 mg PO 1700 11/07/23 Semaglutide [Ozempic] 0.25 mg SQ MO 02/06/24 Benztropine Mesylate [Cogentin] 0.5 mg PO DAILY 02/14/24 Vilazodone HCl 40 mg PO DAILY 02/14/24 Controlled Substance Measures - Controlled Substance Measures Is patient prescribed a controlled substance at discharge?: No
== END ==
LOC: PNWHC3 07:57
PROVIDERS: ATTEND Specialist
DX: M47.816 Spondylosis without myelopathy or radiculopathy, lumbar region
CPT/HCPCS: 99211

== ENCOUNTER 2024-03-14 10:23 | Day surgery (SDC) | payer BC ==
[2024-03-14 10:43] VITALS: RESP 16; TEMP 96.9
[2024-03-14] MEDS: LACTATED RINGERS 1,000 ML IV SCH (10:49)
[2024-03-14 10:51] LABS: Glucose,Whole Blood 148 mg/dL (70-110)
[2024-03-14] MEDS: IV FLUID CONTINUATION 1,000 ML IV ONE ×2 (10:51→11:26)
[2024-03-14] MEDS ORDERED: ROPIVACAINE 5MG/ML 20ML VIAL ONE (10:59)
[2024-03-14] MEDS ORDERED: fentaNYL (PF) 50 MCG/ML 2 ML AMP ONE (10:59)
[2024-03-14] MEDS ORDERED: MIDAZOLAM 2 MG/2 ML VIAL ONE (10:59)
--- NOTE | 2024-03-14 11:14 | P.PCN ---
Date of Procedure: 03/14/24 Procedure(s) Performed: PREOPERATIVE DIAGNOSIS : 1- Lumbar spondylosis with Facet Arthropathy without myelopathy . 2- Lumber degenerative disc disease POSTOPERATIVE DIAGNOSIS: 1- Lumbar spondylosis with Facet Arthropathy without myelopathy . 2- Lumber degenerative disc disease PROCEDURE: Diagnostic bilateral L1 , L2 , and L3 medial branch block under fluoroscopy guidance(fluoroscopy images available in the radiology Department ) ( To target the facet joint between Bilateral L2-3, and L3-4 )#2nd ANESTHESIA:moderate sedation with intravenous Versed 2 mg and Fentanyl 100 mcg.(Sedation start time 10:59, end time 11:11 ) EBL: Minimal COMPLICATION: None PROCEDURE INDICATION: Chronic low back pain secondary to Facet arthropathy unresponsive to conservative treatment. PROCEDURE DESCRIPTION: the patient was seen and identified in the preop holding area , risks and benefits and possible complications of the procedure and alternative were discussed with the patient, and the patient agreed to proceed with the procedure and signed the consent and vital signs monitored during the procedure and fluoroscopy was used to maximize the benefit and accuracy of the needle placement, and sedation was given to decrease patient anxiety, patient was taken to the procedure room and placed in prone position vital signs monitored in the back prepped with chlorhexidine X3 then under strict sterile technique using a right oblique fluoroscopy ,the junction of the transverse process and the superior articulating process of the right L1 , L2 , and L3 vertebra which corresponding to the fluoroscopy image of the eye of the Tomy dog on the block side for the medial branches and subsequently , after local infiltration of skin and subcu tissuies with Ropivacaine 0.5 % , one mL at each level ,then 22-gauge Quincke-type needles , 3 needle was used , each one of them placed at the junction of the base of the transverse process and the superior articular process at the appropriate level, and the needle was advanced until the periosteum contacted, needle placement confirmed with AP oblique and lateral view and after appropriate needle placement confirmed, and after negative aspiration for heme and CSF and there was no paresthesia 1-1/2 mL of Ropivacaine 0.5% , then half mL injected at each level after negative aspiration the needle subsequently removed and the same procedure repeated for the left side at left side at L1 , L2 and L3 levels. At the end of the procedure and the needles removed and a bandage applied after the skin was cleaned the cleaning solution patient taken to recovery room in stable condition and monitors in the recovery room for 20-30 minutes and discharged home in stable condition after discharge criteria met and patient will follow up with the pain clinic in 2-4 weeks
[2024-03-14 11:54] VITALS: BP 148/53; PULSE 83
--- NOTE | 2024-03-14 11:57 | FL ---
EXAMINATION TYPE: FL guided pain mgmt statistic DATE OF EXAM: 03/14/2024 11:18 AM COMPARISON: Pre Operative Images if available both CT/MRI or plain film CLINICAL INDICATION: Male, 53 years old with history of Neil Lumbar Facet; TECHNIQUE: FL guided pain mgmt statistic, multiple fluoroscopic images provided for procedure. Total fluoroscopy time: 35 seconds Total submitted images to PACS: 4 DAP: 0.02372 mGym2 Gycm2 uGym2 cGycm2 or equivalent. FINDINGS: Fluoroscopic images during injection for pain management demonstrate multilevel degeneration changes throughout the spine. No evidence for fracture. No acute process identified. IMPRESSION: 1. No evidence for intraoperative complication. 2. Please see the operative/procedural note for further details. [facility], , 03/14/2024 11:55 AM
== END 2024-03-14 11:56 | disposition home or self-care (01) ==
LOC: ORPAIN 10:23
PROVIDERS: ATTEND Specialist
DX: M47.816 Spondylosis without myelopathy or radiculopathy, lumbar region (principal)

== ENCOUNTER → 2024-03-31 | Outpatient (CLI) | payer BC ==
[2024-03-31 07:52] VITALS: BP 148/104; PULSE 94; RESP 16; TEMP 97.3
--- NOTE | 2024-03-31 15:02 | P.PAINPG ---
PQRS Measure Charge Sheet Comment: HISTORY OF PRESENT ILLNESS: A 53 yr old male presents today w severe and chronic LBP > 1 yr secondary to L4-S1 laminectomy w decompression for evaluation s/p BL MBB L2-L3/ L3-L4 #2. Pt states he experienced 100 % pain relief x 1 wk s/p procedure. Pt states pain level is provoked at 8 /10 in intensity, intermittent, localized in the lumbar spine, predominantly axial, dull in character w shooting pain to the BL thighs. Pain is provoked by over activity. Pain is alleviated by PT x 6 wks in 2020 (post lumbar surgery), physician guided home stretches every morning since lumbar surgery in 2020, medications , manual massage, repositioning and rest . Interventional procedures include L4-S1 Laminectomy w Decompression, JAMIE L2-L3 x1, JAMIE L3-L4 x1, BL MBB L2-L3/ L3-L4 x2 Medications include Tyl, Ibu REVIEW OF ORGAN SYSTEMS: CONSTITUTIONAL: No fevers or chills. No recent weight loss . NEUROLOGICAL: + numbness and tingling along the distal extremities. No seizure disorders or headaches. MUSCULOSKELETAL: + pain PSYCHIATRIC: Denies current depression or suicidal thoughts. Physical Examinations : Constitutional : Cooperative , not in acute distress . Neurologic : Cranial nerve II to XII intact. No focal neurological deficits. Psychiatric : alert & oriented x 3. Matching mood & appropriate affect. Judgment & insight intact. Musculoskeletal : Cervical Spine Motor strength in the deltoid and biceps: Normal right side. Normal Left side Motor strength biceps and the wrist ext ensors: Normal right side . Normal left side Motor strength in the triceps muscle: Normal right side. Normal left side Deep tendon reflexes: Normal at the biceps. Normal at Brachioradialis. Normal at triceps Vertebral body tenderness to deep palpation over Cervical facet loading test: positive bilaterally Spurling test: positive bilaterally Neck distraction test: positive bilaterally Arleth sign: positive bilaterally Lumbar spine +Incisional scar intact Motor strength lower extremities ,thigh and legs 5/5 Right side , 5/5 Left side Deep tendon reflexes : Normal Knee Jerk. Normal Ankle Jerk Vertebral body tenderness over L3 Lin Test positive BL L3-L4 Lumbar facet Loading Test: positive Right / positive Left L2-L3, L3-L4 Range of motion of the lumbar spine Flexion 30 degrees, extension 10 degrees Straight Leg Raise test: Left/ Right positive at degrees Red test: positive right / positive left. Severe tenderness over the Sacroiliac joint on the Right / Left sides Gaenslen test: positive bilaterally Seated flexion test: positive bilaterally. Sacral spine : Severe tenderness over the Sacroiliac joint: right side / left side Range of motion: Flexion of the lumbar spine <60 degrees Range of motion: Extension of the lumbar spine <20 degrees Gaenslen's Test positive Red test: positive right side / left side Thigh Thrust Test Sacral Thrust Test Imaging: MRI non contrast of the lumbar spine from 08/28/23 reviewed Assessment/ Plan : L4-S1 Laminectomy w Decompression & Coflex in L4-L5 Recommendation of JAMIE L3-L4 #3. Risks, benefits of procedure discussed and patient verbalized understanding. Admits to anti- coagulant use or medical history of diabetes. Protocol for discontinuation/ continuation of medications marilee procedure discussed. All questions answered. I have spent greater than 30 minutes on patient care today. Dr Clemente was available by phone for the evaluation of this patient. The time was used to review the medical records including relevant urine studies and Prescription history (MAPs), review of the available imaging, evaluation and examination of the patient, coordination of care with the medical staff and if applicable referring physicians, as well as creation of the medical record PQRS Narrative: Smoking Status Former smoker Hx Alcohol Use (MH) Yes: OCCASIONAL Home Medications: Ambulatory Orders Glimepiride [Amaryl] 4 mg PO BID 03/09/22 Cariprazine HCl [Vraylar] 3 mg PO HS 11/07/23 metFORMIN HCL 1,000 mg PO 1700 11/07/23 Semaglutide [Ozempic] 0.25 mg SQ MO 02/06/24 Benztropine Mesylate [Cogentin] 0.5 mg PO DAILY 02/14/24 Vilazodone HCl 40 mg PO DAILY 02/14/24 Controlled Substance Measures - Controlled Substance Measures Is patient prescribed a controlled substance at discharge?: No
== END ==
LOC: PNWHC3 07:19
PROVIDERS: ATTEND Specialist
DX: M54.50 Low back pain, unspecified (principal); Z98.890 Other specified postprocedural states; Z87.891 Personal history of nicotine dependence
CPT/HCPCS: 99211

== ENCOUNTER 2024-04-17 06:49 | Day surgery (SDC) | payer BC ==
[2024-04-17 07:21] VITALS: TEMP 97.3
[2024-04-17 07:36] LABS: Glucose,Whole Blood 239 mg/dL (70-110)
[2024-04-17] MEDS: INSULIN ASPART (NovoLOG) 100 UNIT/ML VIAL SQ STA (08:04)
[2024-04-17] MEDS ORDERED: methylPREDNISolone ACETATE 40 MG/ML 1 ML VIAL ONE (08:10)
[2024-04-17] MEDS ORDERED: IOPAMIDOL M200 10 ML VIAL ONE (08:10)
--- NOTE | 2024-04-17 08:17 | P.PCN ---
Date of Procedure: 04/17/24 Procedure(s) Performed: PREOPERATIVE DIAGNOSIS: 1- Lumbar Degenerative Disc Diseases 2-Lumbar spondylosis with Facet arthropathy without myelopathy. 3-lumbar radiculopathy POSTOPERATIVE DIAGNOSIS: 1-lumbar degenerative disc disease. 2-lumbar spondylosis with facet arthropathy without myelopathy. 3-lumbar radiculopathy PROCEDURE 1. Lumbar epidural steroid injection under fluoroscopic guidance at the L3-4 level. (Fluoroscopy imaging was available in radiology department) 2. Lumbar epidurogram. ANESTHESIA: Lidocaine 1% 3 and then only. EBL: Minimal PROCEDURE INDICATION: The patient with low back pain and radiculitis symptoms unresponsive to conservative treatment. Fluoroscopy was used to optimize visualization of the needle placement and to maximize safety. PROCEDURE DESCRIPTION / TECHNIQUE: The patient was seen and identified in the preoperative area. Risks, benefits, complications including but not limited to infections ,bleeding ,allergic reaction to the medications ,nerve damage and not complete pain releife , and alternatives were discussed with the patient. The patient agreed to proceed with the procedure and signed the consent, and vital signs were stable. Patient was taken to the OR and time out was completed. The patient was placed in the prone position on procedure table and a pillow was placed under the abdomen to reduce lumbar lordosis. The lumbosacral area was prepped and draped in the usual sterile fashion.ere closely monitored during the procedure. Vital signs was monitered during the entire procedure. Using anterior-posterior fluoroscopy, the L3-4 interlaminar space was identified and the skin over this site was marked and then infiltrated with 1% lidocaine subcutaneously. Subsequently, a 20-gauge Tuohy epidural needle was inserted and advanced toward the epidural space using the ``Loss of resistance technique and guided by AP and lateral fluoroscopy. The correct needle position in the epidural space was verified with the injection of 2 mL of the water soluble contrast dye Isovue 200 contrast and observing an excellent epidurogram with th e epidural spread of the dye, after negative aspiration for blood and CSF and in the absence of paresthesias. Again after negative aspiration, a 6 ml mixture containing 40 mg of Depo-medrol ( Preservetive Free ), and 2 ml of preservative free Normal Saline, and 2 ml of preservative free lidocaine 1% solution was injected and a washout of epidurogram was seen. Needle was withdrawn intact, skin was cleansed, and bandages were applied. COMPLICATIONS: None DISPOSITION / PLANS: The patient was placed in a supine position and transferred to the recovery area in a stable condition for observation. There was no evidence of lower extremity motor or sensory deficit after the procedure. Patient was discharged from the recovery room after meeting discharge criteria. Home discharge instructions were given to the patient by the staff. The patient was reexamined prior to discharge. The patient will schedule a follow up in the clinic in 2-4 weeks.
[2024-04-17 08:28] VITALS: RESP 20
[2024-04-17 08:28] LABS: Glucose,Whole Blood 184 mg/dL (70-110)
[2024-04-17 08:43] VITALS: BP 117/80; PULSE 90
--- NOTE | 2024-04-17 09:00 | FL ---
EXAMINATION TYPE: FL guided pain mgmt statistic DATE OF EXAM: 04/17/2024 8:20 AM COMPARISON: Pre Operative Images if available both CT/MRI or plain film CLINICAL INDICATION: Male, 53 years old with history of LESI; TECHNIQUE: FL guided pain mgmt statistic, multiple fluoroscopic images provided for procedure. Total fluoroscopy time: 3.3 seconds Total submitted images to PACS: 1 DAP: 0.56853 mGym2 Gycm2 uGym2 cGycm2 or equivalent. FINDINGS: Fluoroscopic images during internal fixation/arthroplasty demonstrate hardware in appropriate positio n. Hardware appears intact. No immediate complication identified. IMPRESSION: 1. No evidence for intraoperative complication. 2. Please see the operative/procedural note for further details. [facility], , 04/17/2024 8:58 AM
== END 2024-04-17 08:44 | disposition home or self-care (01) ==
LOC: ORPAIN 06:49
PROVIDERS: ATTEND Specialist
DX: M51.16 Intervertebral disc disorders with radiculopathy, lumbar region (principal); M47.26 Other spondylosis with radiculopathy, lumbar region
CPT/HCPCS: 62323; Q9966; J1010

== ENCOUNTER → 2024-05-05 | Outpatient (CLI) | payer BC ==
[2024-05-05 08:53] VITALS: BP 176/108; PULSE 89; RESP 16; TEMP 97.1
--- NOTE | 2024-05-05 14:52 | P.PAINPG ---
PQRS Measure Charge Sheet Comment: HISTORY OF PRESENT ILLNESS: A 53 yr old male presents today w severe and chronic LBP > 1 yr secondary to L4-S1 laminectomy w decompression for evaluation s/p JAMIE L3-L4 #3. Pt states he experienced 100 % pain relief x 3 wks s/p procedure. Pt states pain level is provoked at 2-6 /10 in intensity, intermittent, localized in the lumbar spine, predominantly axial, dull in character without shooting pain. Pain is provoked by over activity. Pain is alleviated by PT x 6 wks in 2020 (post lumbar surgery), physician guided home stretches every morning since lumbar surgery in 2020, medications , manual massage, repositioning and rest . Interventional procedures include L4-S1 Laminectomy w Decompression, JAMIE L2-L3 x1, JAMIE L3-L4 x2, BL MBB L2-L3/ L3-L4 x2 Medications include Tyl, Ibu REVIEW OF ORGAN SYSTEMS: CONSTITUTIONAL: No fevers or chills. No recent weight loss. NEUROLOGICAL: + numbness and tingling along the distal extremities. No seizure disorders or headaches. MUSCULOSKELETAL: + pain PSYCHIATRIC: Denies current depression or suicidal thoughts. Physical Examinations : Constitutional : Cooperative , not in acute distress . Neurologic : Cranial nerve II to XII intact. No focal neurological deficits. Psychiatric : alert & oriented x 3. Matching mood & appropriate affect. Judgment & insight intact. Musculoskeletal : Cervical Spine Motor strength in the deltoid and biceps: Normal right side. Normal Left side Motor strength biceps and the wrist extensors: Normal right side . Normal left side Motor strength in the triceps muscle: Normal right side. Normal left side Deep tendon reflexes: Normal at the biceps. Normal at Brachioradialis. Normal at triceps Vertebral body tenderness to deep palpation over Cervical facet loading test: positive bilaterally Spurling test: positive bilaterally Neck distraction test: positive bilaterally Arleth sign: positive bilaterally Lumbar spine +Incisional scar intact Motor strength lower extremities ,thigh and legs 5/5 Right side , 5/5 Left side Deep tendon reflexes : Normal Knee Jerk. Normal Ankle Jerk Vertebral body tenderness over L3 Lin Test positive BL L3-L4 Lumbar facet Loading Test: positive Right / positive Left L2-L3, L3-L4 Range of motion of the lumbar spine Flexion 30 degrees, extension 10 degrees Straight Leg Raise test: Left/ Right positive at degrees Red test: positive right / positive left. Severe tenderness over the Sacroiliac joint on the Right / Left sides Gaenslen test: positive bilaterally Seated flexion test: positive bilaterally. Sacral spine : Severe tenderness over the Sacroiliac joint: right side / left side Range of motion: Flexion of the lumbar spine <60 degrees Range of motion: Extension of the lumbar spine <20 degrees Gaenslen's Test positive Red test: positive right side / left side Thigh Thrust Test Sacral Thrust Test Imaging: MRI non contrast of the lumbar spine from 08/28/23 reviewed Assessment/ Plan : L4-S1 Laminectomy w Decompression & Coflex in L4-L5 Recommendation of BL RFA L2-L3, L3-L4. Risks, benefits of procedure discussed and patient verbalized understanding. Admits to anti- coagulant use or medical history of diabetes. Protocol for discontinuation/ continuation of medications marilee procedure discussed. Minimal anesthesia including Fentanyl and Versed if clinically indicated. All questions answered. I have spent greater than 30 minutes on patient care today. Dr Clemente was available by phone for the evaluation of this patient. The time was used to review the medical records including relevant urine studies and Prescription history (MAPs), review of the available imaging, evaluation and examination of the patient, coordination of care with the medical staff and if applicable referring physicians, as well as creation of the medical record - Pain Location Bilateral Lower Back Non-Pharmacological Interventions: Heat, Position/Reposition, Relaxation Technique, Sitting Pharmacological Interventions: Block, Epidural, PRN Medication PQRS Narrative: Smoking Status Former smoker Hx Alcohol Use (MH) Yes: OCCASIONAL Home Medications: Ambulatory Orders Glimepiride [Amaryl] 4 mg PO BID 03/09/22 Cariprazine HCl [Vraylar] 3 mg PO HS 11/07/23 metFORMIN HCL 1,000 mg PO 1700 11/07/23 Semaglutide [Ozempic] 0.25 mg SQ MO 02/06/24 Benztropine Mesylate [Cogentin] 0.5 mg PO DAILY 02/14/24 Vilazodone HCl 40 mg PO DAILY 02/14/24 Controlled Substance Measures - Controlled Substance Measures Is patient prescribed a controlled substance at discharge?: No
== END ==
LOC: PNWHC3 08:16
PROVIDERS: ATTEND Specialist
DX: M54.50 Low back pain, unspecified (principal); Z98.890 Other specified postprocedural states; Z87.891 Personal history of nicotine dependence
CPT/HCPCS: 99211

== ENCOUNTER 2024-05-22 06:12 | Day surgery (SDC) | payer BC ==
[2024-05-22 06:57] LABS: Glucose,Whole Blood 192 mg/dL (70-110)
[2024-05-22] MEDS: IV FLUID CONTINUATION 1,000 ML IV ONE (07:00)
[2024-05-22] MEDS ORDERED: MIDAZOLAM 2 MG/2 ML VIAL ONE (07:05)
[2024-05-22] MEDS ORDERED: methylPREDNISolone ACETATE 40 MG/ML 1 ML VIAL ONE (07:05)
[2024-05-22] MEDS ORDERED: ROPIVACAINE 5MG/ML 20ML VIAL ONE (07:05)
[2024-05-22] MEDS ORDERED: fentaNYL (PF) 50 MCG/ML 2 ML AMP ONE (07:05)
[2024-05-22] MEDS ORDERED: LACTATED RINGERS 1,000 ML IV SCH (07:35)
--- NOTE | 2024-05-22 07:35 | P.PCN ---
Date of Procedure: 05/22/24 Procedure(s) Performed: PREOPERATIVE DIAGNOSIS: 1-Lumbar Spondylosis with Facet Arthropathy without myelopathy. 2- Lumber degenerative disc disease. POSTOPERATIVE DIAGNOSIS: 1- Lumbar Spondylosis with Facet Arthropathy without myelopathy. 2- Lumber degenerative disc disease. PROCEDURES: Bilateral Radiofrequency thermocoagulation, L1 , L2 , and L3 medial branch, with fluoroscopic guidance (fluoro emages in the rad dept) ( to denervate the facet joint at bilateral L2-3 ,and L3-4 levels ). ANESTHESIA: Moderate sedation with intravenous versed 2 mg and fentaneyl 100 mcg . (Sedation started at 07:05, ended at 07:29 ) EBL: Minimal PROCEDURE INDICATION: The patient with low back pain secondary to lumbar facet arthropathy who had more than 50% relief of her pain with previous diagnostic lumbar medial branch block with bupivacaine. PROCEDURE DESCRIPTION / TECHNIQUE: The patient was seen and identified in the preoperative area. Risks, benefits, complications, including but not limited to risk of infection ,bleeding , allergic reactions to the medications and no complete pain releife , and alternatives were discussed with the patient, the patient agreed to proceed with the procedure and signed the consent. IV was started. Vital signs remained stable throughout the procedure. Patient was taken to the OR and time out was completed. The patient was placed in the prone position on the procedure table. The lumber area was prepped and draped in the usual sterile fashion. . Vital signs were closely monitored during the procedure .IV sedation was used during the procedure to decrease patients anxiety. Using AP and then oblique fluoroscopy, the ``eye of the Tomy dog corresponding to the connection between the superior and transverse articular processes of right L1, L2, and L3 were identified, marked, and localized with 1% lidocaine. Subsequently, a 18 guage (VENOM )100-mm radiofrequency cannula with a 10-mm active tip was advanced guided by fluoroscopy to each of the``eyes of the Tomy dog at right L1, L2, and L3. Each site then underwent sensory testing at 50 Hz and 0 to 1 volt and motor testing at 2.5 Hz and 0 to 3 volt with local stimulation, but no radicular symptoms down the legs. Thereafter each sites underwent radiofrequency thermocoagulation at 80 degrees celsius for 90 seconds after injecting 0.5 ml of PF Ropivacaine 1ml, then after the thermocoagulation done , 1 ml of the block solution containing Depo-Medrol 20 mg and 3 ml of Ropivacaine 0.5% was injected at the right L1 , L2 , and L3 , levels after negative aspiration of CSF and blood and with no paresthesias. Cannulas were retracted while injecting lidocaine 1% until the needle is out. The same procedure was repeated at the level of Left L1, L2, and L3 levels. At the end of the procedure, the skin was cleansed and bandages were applied. COMPLICATIONS: No acute complications. DISPOSITION / PLANS: The patient was placed in a supine position and transferred to the recovery area in a stable condition for observation and was discharged from the recovery room after meeting discharge criteria. Home discharge instructions given to the patient by the staff. The patient was reexamined prior to discharge. The patient will schedule a follow up in the clinic in 2-4 weeks.
[2024-05-22] MEDS: SODIUM CHLORIDE 0.9% 500 ML 450 ML IV ONE (07:38)
[2024-05-22 07:52] VITALS: RESP 18
[2024-05-22 08:08] VITALS: BP 108/74; PULSE 98
--- NOTE | 2024-05-22 08:44 | FL ---
EXAMINATION TYPE: FL guided pain mgmt statistic DATE OF EXAM: 05/22/2024 FLUOROSCOPY 18 sec FL .76710 DAP dose RF LUMBAR HANNAH 6 images are submitted. [facility], Workstation: [id number], 05/22/2024 8:42 AM
== END 2024-05-22 08:11 | disposition home or self-care (01) ==
LOC: ORPAIN 06:12
PROVIDERS: ATTEND Specialist
DX: M47.816 Spondylosis without myelopathy or radiculopathy, lumbar region (principal); M51.360 Other intervertebral disc degeneration, lumbar region with discogenic back pain only
CPT/HCPCS: 64635; 64636; J2250; J3010; J2795; J1010; 99152

== ENCOUNTER → 2024-07-07 | Outpatient (CLI) | payer BC ==
[2024-07-08 03:50] LABS: Apolipoprotein A1 153 mg/dL (110 - 205)
== END | disposition home or self-care (01) ==
LOC: LABWHC1 08:55
PROVIDERS: ATTEND Internal Medicine
DX: E78.5 Hyperlipidemia, unspecified (principal); R06.09 Other forms of dyspnea; Z82.49 Family history of ischemic heart disease and other diseases of the circulatory system
CPT/HCPCS: 36415; 82172; 83695

== ENCOUNTER → 2024-07-09 | Outpatient (CLI) | payer BC ==
--- NOTE | 2024-07-10 06:19 | MR ---
EXAMINATION TYPE: MR lumbar spine wo con DATE OF EXAM: 07/09/2024 COMPARISON: Prior MRI August 28, 2023 HISTORY: low back pain that radiates down both legs, history of surgery 2020 TECHNIQUE: Multiplanar, multisequence imaging of the lumbar spine is performed without IV contrast. FINDINGS: Sagittal images of the lumbar spine show vertebral body heights and alignment to remain sta ble and satisfactory. Disc desiccation at L4-L5 and L5-S1 levels is redemonstrated. There is persiste nt mild to moderate disc space narrowing with heterogeneous Modic type II and type III endplate broussard es and moderate spurring at the L3-L4 level. The conus medullaris remains normal in position and has normal signal currently ending at mid L1 level. Axial images show the T12-L1 and L1-L2 levels to appear within normal limits. Axial images at L2-L3 level shows stable mild broad disc bulge but the spinal canal is preserved. Axial images at L3-L4 level redemonstrates [id number] broad disc bulge with a broad-based left paracentral disc protrusion component and mild moderate facet degenerative changes and ligamenta flav a hypertrophy, there is effacement of the anterolateral thecal sac and left lateral recess. There is moderate to severe left-sided neural foraminal narrowing and mild right-sided neural foraminal narrow ing redemonstrated. No significant change from prior. Axial images at the L4-L5 level show moderate facet degenerative changes bilaterally. There is broad disc bulge with focal central disc protrusion component effacing the anterior thecal sac on axial doretha ge 9, there is [id number] bilateral neural foraminal narrowing. No significant change from most recent prior. Axial images at the L5-S1 level mild to moderate facet degenerative changes bilaterally. There is foc al central disc protrusion and annular tear but spinal canal is preserved. Stable mild to moderate le ft greater than right bilateral neural foraminal narrowing. Paraspinal muscle bulk is preserved. IMPRESSION: Multilevel degenerative changes in the mid to lower lumbar spine as detailed above. No si gnificant change or progression from the most recent 2023 MRI. [facility], , 07/10/2024 6:16 AM
== END | disposition home or self-care (01) ==
LOC: RADMRIMAIN 18:50
PROVIDERS: ATTEND Orthopaedic Surgery
DX: M48.061 Spinal stenosis, lumbar region without neurogenic claudication (principal); M51.16 Intervertebral disc disorders with radiculopathy, lumbar region; M99.73 Connective tissue and disc stenosis of intervertebral foramina of lumbar region; M47.26 Other spondylosis with radiculopathy, lumbar region
CPT/HCPCS: 72148

== ENCOUNTER → 2024-10-23 | Outpatient (CLI) | payer BC | END | disposition home or self-care (01) | LOC: LABPAT 10:18 | PROVIDERS: ATTEND Orthopaedic Surgery | DX: Z01.812 Encounter for preprocedural laboratory examination (principal); Z22.322 Carrier or suspected carrier of Methicillin resistant Staphylococcus aureus; E11.9 Type 2 diabetes mellitus without complications; M51.86 Other intervertebral disc disorders, lumbar region | CPT/HCPCS: 83036; 86850; 86900; 86901; 87070 ==

== ENCOUNTER → 2024-10-24 | Outpatient (CLI) | payer BC ==
[2024-10-24 18:42] LABS: Prothrombin Time 11.4 sec (9.9-11.9)
[2024-10-24 19:05] LABS: Basophils # (A) 0.07 X 10*3/uL (0.00-0.10); Eosinophils # (A) 0.07 X 10*3/uL (0.04-0.35); HCT 48.2 % (39.6-50.0); HGB 16.1 g/dL (13.0-17.0); Lymphocytes # (A) 2.89 X 10*3/uL (0.90-5.00); MCH 30.3 pg (27.0-32.0); MCHC 33.4 g/dL (32.0-37.0); MCV 90.6 FL (80.0-97.0); Mean Platelet Volume 11.7 FL (9.5-12.2); Monocytes % (A) 9.7 %; NRBC Per 100 WBC 0 X 10*3/uL (0.00-0.01); Neutrophils # (A) 3.46 X 10*3/uL (1.80-7.70); Neutrophils % (A) 47.7 %; Platelet Count 218 X 10*3/uL (140-440); RBC 5.32 X 10*6/uL (4.40-5.60); RDW 12.1 % (11.5-14.5); WBC 7.23 X 10*3/uL (4.50-10.00)
== END | disposition home or self-care (01) ==
LOC: LABPAT 12:40
PROVIDERS: ATTEND Orthopaedic Surgery
DX: Z01.812 Encounter for preprocedural laboratory examination (principal); Z22.322 Carrier or suspected carrier of Methicillin resistant Staphylococcus aureus; M51.369 Other intervertebral disc degeneration, lumbar region without mention of lumbar back pain or lower extremity pain; E11.9 Type 2 diabetes mellitus without complications
CPT/HCPCS: 36415; 85025; 85610

== ENCOUNTER 2024-10-30 05:43 | Inpatient (IN) | payer BC ==
[~2024-10-30 05:43] MED LIST changes: -LACTATED RINGERS 1,000 ML IV SCH; +TRANEXAMIC 1,000 MG/100ML-NACL 1,000 MG in SALINE 1 100ML.BAG IVPB PRN
[2024-10-30] MEDS ORDERED: LIDOCAINE 1% (10MG/ML) FOR IV START INTRADERMA PRN (06:07)
[2024-10-30 06:42] LABS: Glucose,Whole Blood 233 mg/dL (70-110)
[2024-10-30] MEDS: ACETAMINOPHEN TAB 500 MG TAB PO PRN (06:47)
[2024-10-30] MEDS: GABAPENTIN 300 MG CAP PO PRN (06:47)
[2024-10-30] MEDS: ONDANSETRON 4 MG/2 ML VIAL IVP PRN (06:47)
[2024-10-30] MEDS: LACTATED RINGERS 1,000 ML IV SCH (06:48)
--- NOTE | 2024-10-30 06:55 | P.HPOR ---
History of Present Illness H&P Date: 10/30/24 .D:Date: 10/23/24 : 11:14am .T:Title: PRE OP H&P Spine Surgery Clinical and Risk Review Kristian is a 53 YO MALE presenting for evaluation of LOW BACK PAIN, LE WEAKNESS, PARESTHESIAS AND GROIN PARESTHESIAS. It was my pleasure to have seen and examined Kristian. In our visit today we have had a chance to go over subjective complaints, physical examination findings and treatments including the natural course history without intervention and various interventional options. The patients imaging demonstrates L3-5 SPONDYLOSIS WITH MODERATE TO SEVERE STENOSIS, COFLEX IMPLANT FAILURE, DISC DEGENERATION AND SEVERE FORAMINAL STENOSIS. On physical exam, Kristian demonstrates BLE PARESTHESIAS, WEAKNESS, LOW BACK PAIN, LE RADICULOPATHY. INABILITY TO PERFORM ADLS SECONDARY TO PAIN. IMPRESSION: 1. L3-5 SPONDYLOSIS WITH STENOSIS, SEVERE 2. L3-5 HNP WITH STENOSIS 3. LE PARESTHESIAS 4. LE RADICULOPATHY 5. LOW BACK PAIN I have explained to the patient that as their condition progresses it will cause further neurological deficits and eventual paralysis. Based on the patients imaging, physical exam, and the rapid progression and disabling nature of their symptoms, at this time I recommend surgery in the form or a: L3-5 REMOVAL OF COFLEX WITH DECOMPRESSION AND FUSION. I discussed the risk and benefits of this procedure at length with Kristian. The patient agreed to considered pursuing the procedure abovementioned. Prior to surgery, she should follow up with her PCP (Cardio, ID, IM etc) for clearance. Questions were invited and answered, and the patient wishes to proceed as outlined below. Currently, I am recommendin.L3-5 REVISION DECOMPRESSION AND FUSION WITH COFLEX REMOVAL 2.Follow up with PCP for surgical clearance 3.Review of surgical risks and benefits as well as an educational packet on the proposed surgical procedure. Risks: All surgical procedures come with inherent risks, including those related to positioning, anesthesia, intraoperative findings, and postoperative complications. It is important to understand that surgery does not come with any guarantee of a successful outcome as complications and adverse events are always possible. The patient was given a handout in office today discussing the surgical procedure and risks associated with the intervention, both of which were discussed with the patient. These risks include but are not limited to the following: * Experiencing same, different or even worse symptoms in back, neck, arms, or legs compared to before surgery. Requiring further surgery or other forms of treatment presently or at some time in the future at same or other levels of the intended spine surgery. On an extreme but fortunately relatively rare basis severe complication such as blindness, stroke, heart attack, temporary and/or permanent nerve injury, paralysis, coma, or may occur, sometimes without known explanation. Surgical complications may include but are not limited to risk of infection, fluid accumulation in the surgical dissection site, including a seroma or hematoma, that requires additional surgery, wound drainage, bleeding, new numbness or weakness, vision changes/loss, spinal fluid leakage, non-healing and/or infected incision, headaches, difficulty or inability to swallow, hoarseness, hemopneumothorax, pneumothorax, impotence, retrograde ejaculation, vaginal dryness; injury to nerves, spinal cord, blood vessels, lymphatics or other vital organs (i.e., bowel injury, injury to the great vessels); heterotopic bone formation; complications related to the hardware such as screws, rods, cages including misplaced hardware, device failure, instrumentation at the wrong spine level, hardware fracture/breakage, or hardware loosening; vertebral failure of the spinal column above or below the newly placed hardware; retained surgical instrumentations or devices and the need for further surgery. * Medical risks of the planned spine surgery include but are not limited to generalized Infections to the whole body or local areas outside of the surgical site (sepsis), heart attack, bleeding, anaphylaxis, meningitis, seizure, epilepsy, hearing loss, burn beth, laceration of the head or other areas of the body, bruising, hypersensitivity of the skin, bladder over distension; allergic reaction; shoulder injury related to positioning; fat, blood and air clots to other areas of the body like heart, lungs, brain; failure of internal organs such as lungs, kidneys, liver and excessive bleeding. If blood transfusions are necessary, note that transfusions may cause intolerance reactions such as anaphylaxis or other complex reactions. Despite best efforts, the results of spine surgery might not heal in terms of bone, soft tissues such as skin, fascia, ligaments, and joints. Additionally, in order to achieve best possible results, spine surgery may be carried out beyond the initially planned levels and involve decompression, fusion including insertion of hardware at levels other than the original intended area of surgical interest change some portions of the procedure in order to ensure the best possible outcomes. With spine surgery and spinal fusion, there are different off label uses of instrumentation (devices, implants and hardware) as well as biological substances (bone morphogenic proteins, demineralized bone matrix) as well as using extra bone from allograft sources (i.e. cadaver bone) or autograft (iliac crest bone, ribs, or the spine itself). The patient has been given information about these practices and their inherent risks and benefits. We have discussed at length the impact of tobacco, smoking and nicotiene has on healing, specifically in spine surgery and fusion surgery. This can increase you risks of non-healing up to 300% some studies show. We have discussed that the patient has been tobacco/smoke/nicotiene free for the past 6 weeks and will commit to at least 6 weeks after surgery of cessation of smoking and or any tobacco or nicotiene use. They have agreed to this and contest that they have been tobacco/nicotiene free for the past 6 weeks. The patient has had a chance to review all the listed information, has been given print outs detailing this information, and has had all his/her questions answered to their satisfaction. It was my pleasure to have seen and examined Kristian. In our visit today we have had a chance to go over my understanding of our patient's current condition, the natural course history without intervention and various interventional options. Questions were invited and answered, and the patient wishes to proceed as outlined above. I have seen and examined the patient for 25 minutes and we have spent more than 50% of the time in repeat and detailed counseling about the patient's condition, its natural course history with out and as much as can be predicted with surgery and re-review of various surgical treatment options. In conclusion, Kristian requested we proceed with the above suggested surgery and are willing to accept risks and limitations of the suggested surgery as nature of the disease process and our best attempts at treatment for the condition. Thank you again for allowing us to be part of your patient's care. Please don't hesitate to contact me if you have any further questions. # SIGNED BY Jose David Armas (GOO)10/23/2024 11:48AM Past Medical History Past Medical History: Diabetes Mellitus Additional Past Medical History / Comment(s): pain clinic procedures, tremors- side effects of meds per pt. History of Any Multi-Drug Resistant Organisms: None Reported Past Surgical History: Back Surgery, Cholecystectomy Additional Past Surgical History / Comment(s): , L tear duct replaced, bilateral eyes lasik surgery for vision correction in 2018. epidural steriod for pain, carpal tunnel surgery, PAIN CLINIC PROCEDURES, COLONOSCOPY Past Anesthesia/Blood Transfusion Reactions: No Reported Reaction Additional Past Alcohol Use History / Comment(s): Pt smoked from 1985 until 2011 - Past Family History Father Additional Family Medical History / Comment(s): Stents X2. Father had his TX in his mid 50s. Mother Family Medical History: No Reported History Medications and Allergies Home Medications Medication Instructions Recorded Confirmed Type Glimepiride [Amaryl] 4 mg PO HS 03/09/22 10/24/24 History Cariprazine HCl [Vraylar] 3 mg PO HS 11/07/23 10/24/24 History metFORMIN HCL 1,000 mg PO DAILY 11/07/23 10/24/24 History Semaglutide [Ozempic] 2 mg SQ MO 02/06/24 10/24/24 History Benztropine Mesylate [Cogentin] 0.5 mg PO HS 02/14/24 10/24/24 History Vilazodone HCl 40 mg PO DAILY 02/14/24 10/24/24 History Allergies Allergy/AdvReac Type Severity Reaction Status Date / Time No Known Allergies Allergy Verified 10/30/24 06:22 Physical Examination Osteopathic Statement: *. No significant issues noted on an osteopathic struct ural exam other than those noted in the History and Physical/Consult. Results - Labs Labs: Abnormal Lab Results - Last 24 Hours (Table) 10/30/24 Range/Units 06:39 POC Glucose (mg/dL) 233 H (70-110) mg/dL
[2024-10-30] MEDS: INSULIN LISPRO (HumaLOG) 100 UNIT/ML 10 mL VL SQ ONE (06:57)
[2024-10-30] MEDS: IV FLUID CONTINUATION 1,000 ML IV ONE ×2 (07:14)
[2024-10-30] MEDS ORDERED: MIDAZOLAM 2 MG/2 ML VIAL ONE (07:25)
[2024-10-30] MEDS ORDERED: TRANEXAMIC 1,000 MG/100ML-NACL PREMIX BAG ONE (07:25)
[2024-10-30] MEDS ORDERED: HYDROmorphone (PF) 1 MG/ML ONE (07:25)
[2024-10-30] MEDS ORDERED: KETAMINE HCL IN 0.9 % NACL 50 MG/5 ML SYRINGE ONE (07:25)
[2024-10-30] MEDS ORDERED: LIDOCAINE 1% INJ 10MG/ML (20 ML MDV) ONE (07:25)
[2024-10-30] MEDS ORDERED: SUCCINYLCHOLINE CHLORIDE 200 MG/10 ML VIAL IV ONE (07:25)
[2024-10-30] MEDS ORDERED: ROCURONIUM 10 MG/ML (5 ML VIAL) IV ONE (07:25)
[2024-10-30] MEDS ORDERED: PHENYLEPHRINE-0.9% NACL SYG 1,000 MCG/10 ML SYRINGE ONE (07:25)
[2024-10-30] MEDS ORDERED: NEOSTIGMINE 1 MG/ML 10 ML VIAL ONE (07:25)
[2024-10-30] MEDS ORDERED: fentaNYL (PF) 50 MCG/ML 2 ML AMP ONE (07:25)
[2024-10-30] MEDS ORDERED: GLYCOPYRROLATE 0.2 MG/ML 2 ML VIAL ONE (07:25)
[2024-10-30] MEDS ORDERED: PROPOFOL 10 MG/ML 20 ML VIAL IV ONE (07:25)
[2024-10-30] MEDS: ceFAZolin 2 GM in DEXTROSE 5% IN WATER 50 ML IVPB PRN (07:30)
[2024-10-30] MEDS: THROMBIN (BOVINE) 5,000 UNIT VIAL MISCELLANE ONE (08:52)
[2024-10-30] MEDS: GENTAMICIN 80 MG in SODIUM CHLORIDE 0.9% IRRIGATIO 3,000 ML IRRIGATION ONE (08:54)
[2024-10-30] MEDS: ceFAZolin 3,000 MG in SODIUM CHLORIDE 0.9% IRRIGATIO 3,000 ML IRRIGATION ONE (08:54)
[2024-10-30 09:09] LABS: Glucose,Whole Blood 189 mg/dL (70-110)
[2024-10-30] MEDS: LACTATED RINGERS 1,000 ML IV ONE ×2 (10:08→10:39)
[2024-10-30] MEDS: VANCOMYCIN 1,000 MG VIAL MISCELLANE ONE (10:13)
--- NOTE | 2024-10-30 11:23 | P.OP ---
Date of Procedure: 10/30/24 Preoperative Diagnosis: IMPRESSION: 1. L3-5 SPONDYLOSIS WITH STENOSIS, SEVERE 2. L3-5 HNP WITH STENOSIS 3. LE PARESTHESIAS 4. LE RADICULOPATHY 5. LOW BACK PAIN Postoperative Diagnosis: IMPRESSION: 1. L3-5 SPONDYLOSIS WITH STENOSIS, SEVERE 2. L3-5 HNP WITH STENOSIS 3. LE PARESTHESIAS 4. LE RADICULOPATHY 5. LOW BACK PAIN Procedure(s) Performed: 1. L3-4 INTRADISCAL OSTEOTOMY, 3 COUMN, FOR DEFORMITY CORRECTION 2. L4-5 INTRADISCAL OSTEOTOMY, 3 COLUMN, FOR DEFORMITY CORRECTION 3. L3-4 POSTEROLATERAL AND INTERBODY FUSION 4. L4-5 5. L3-5 SEGMENTAL INSTRUMENTATION 6. L3-4 AND L4-5 BILATERAL LAMINECTOMY, FACETECTOMY, FORAMINOTOMY FOR COMPLETE NEURAL DECOMPRESSION, DEFORMITY CORRECTION AND CAGE PLACEMENT. 7. REMOVAL OF COFLEX IS SPACER L4-5 8. INSERTION OF BIOMECHANICAL DEVICES L3-4 AND L4-5, CAGES x2, INTERBODY 9. USE OF [employer] NAVIGATION FOR SCREW PLACEMENT USE OF IONM ALL SCREWS TESTING > 20 mA MOD22: THIS CASE TOOK 75% LONGER THAN EXPECTED DUE TO SEVERITY OF DISEASE, REVISION CASE, SCAR FORMATION AND EXTENT OF PATHOLOGY WELL TECHNICALLITY OF THE CASE. Implants: [place] [employer] RODS AND SCERWS GLOBUS SABLE CAGE 12 MM 9-16MM LONG x2 CONTOUR, ARTHROCELL, ALLOCELL, DBM, VESUVIUS, AUTOGRAFT LOCAL Anesthesia: ENRIQUE Surgeon: Jose David Armas Photo Print Specialist #1: León Mosley (WAS PRESENT AND ASSISTED WITH ALL ASPECTS OF THE CASE FROM POSITION TO DRESSING PLACEMENT) Estimated Blood Loss (ml): 400 IV fluids (ml): 2,000 Urine output (ml): 250 Pathology: none sent Condition: stable Disposition: PACU Indications for Procedure: Kristian is a 53 YO MALE presenting for evaluation of LOW BACK PAIN, LE WEAKNESS, PARESTHESIAS AND GROIN PARESTHESIAS. It was my pleasure to have seen and examined Kristian. In our visit today we have had a chance to go over subjective complaints, physical examination findings and treatments including the natural course history without intervention and various interventional options. The patients imaging demonstrates L3-5 SPONDYLOSIS WITH MODERATE TO SEVERE STENOSIS, COFLEX IMPLANT FAILURE, DISC DEGENERATION AND SEVERE FORAMINAL STENOSIS. On physical exam, Kristian demonstrates BLE PARESTHESIAS, WEAKNESS, LOW BACK PAIN, LE RADICULOPATHY. INABILITY TO PERFORM ADLS SECONDARY TO PAIN. I have explained to the patient that as their condition progresses it will cause further neurological deficits and eventual paralysis. Based on the patients imaging, physical exam, and the rapid progression and disabling nature of their symptoms, at this time I recommend surgery in the form or a: L3-5 REMOVAL OF COFLEX WITH DECOMPRESSION AND FUSION. I discussed the risk and benefits of this procedure at length with Kristian. The patient agreed to considered pursuing the procedure abovementioned. Prior to surgery, she should follow up with her PCP (Cardio, ID, IM etc) for clearance. Questions were invited and answered, and the patient wishes to proceed as outlined below. Currently, I am recommendin.L3-5 REVISION DECOMPRESSION AND FUSION WITH COFLEX REMOVAL Description of Procedure: L3-5 REVISION DECOMPRESSION FUSION, COFLEX REMOVAL, MELA The patient was seen and examined in the preoperative area. All preoperative protocols were followed. Informed consent was obtained, risks and benefits of the procedure were discussed at length. Risks including bleeding infection damage to the surrounding tissue and risk of reoperation were discussed with the patient. Risk of anesthesia up to and including was discussed with the patient. These are outlined in the risk review. They were willing to accept these risks and all the risks of surgery. The patient was given a weight-based dose of antibiotics in the form of 2 g Ancef. The patient was seen and evaluated by the anesthesia team who deemed them fit for surgery. The site was marked, the patient was willing to proceed with the procedure. The patient was transferred to the operative suite by the Department of anesthesia. They were then drifted off to sleep by the department anesthesia and GETA was performed. The patient tolerated this well. Arreola catheter was placed by nursing staff, a-traumatically. Once confirmation of lines and ventilation the patient was transferred to a prone William table very carefully. All bony prominences including wrists, elbows, axilla, chest, hips, and thighs, and feet were padded very well. Special attention was paid to the genitalia, and these were padded accordingly. SCDs were placed on bilateral lower extremities and were connected. Arms were well padded and placed on arm boards up and out in the 90/90 position. Once in position, again we confirmed good ventilation capabilities and that lines were running appropriately. The patients Lumbar spine was then exposed. 1010s were placed outlining the incision site. Standard alcohol was used to clean the incision site and allowed to dry. C-arm was used to needle localize the pedicles at L3-5 and bio-alexandra the patient and confirm level for incision which was marked with a skin marker. Operative briefing was performed with all teams and everyone in agreement to proceed. The patient was then prepped and draped in a normal sterile fashion. Timeout was then performed, and all parties agreed with the procedure to be performed. Midline skin incision was made over the previously bio-marked area and dissection taken down over the SP of L3-L5. L3-5 was taken out over facet joints and TPs and a penfield 4 used to alexandra the L4 pedicle. Lateral image used to confirm levels. Previous hardware, Coflex, was exposed at the L4-5 level and was loose. There was fracture of the SP at this level as well as migration of the Coflex device. This was removed without issues. We then proceeded to place screws b/l at pedicles from L3-5 using [employer] Navigation. 3D Zhiem spin was obtained and registered and after confirmation of accuracy, navigated Teller was used to create a genetics teacher hole, Navigated awl-tap was then placed then a ball tip feeler to confirm within the pedicles. Navigated Screw was measured and placed. Once screws were placed they were confirmed to be in good position using AP and Lateral fluoroscopy. The wound was then irrigated. Screws were tested and all tested above 20 mA. We then proceeded to decompression and cage placement. At L4-5, bilateral laminectomy, complete facetectomy and foraminotomy were performed. Again, exuberant scar tissue and bone formation was encountered and at this level. There was also a large disc osteophyte complex that was identified once disc space along with scar tissue due to previous surgery. The dura was carefully dissected off this anteriorly and b/l. Once encountered, the disc space was then accessed in a similar fashion and neural elements protected. Intradiscal, 3 column osteotomy was then done for deformity correction. Osteotome was used to make osteotomy in L4 and L5 and for complete disc removal. This was passed into the anterior 1/3 of L4. This allowed for loosening of this level and correction. Down biting curette was used to release the disc annulus and PLL across completely. This allowed for disc removal and cartilage removal followed by pituitary. Cage was then selected based on shaving and trials. Bleeding endplates were encountered and cartilage removed. Autograft, allograft were then placed anterior to the cage. The cage was then impacted into place under lateral imaging while protecting neural elements. The cage was then expanded into position and showed good lift and correction. Baptism of lordosis and height achieved. Meticulous hemostasis then performed, and attention turned to L3-4. At L3-4, bilateral laminectomy, complete facetectomy and foraminotomy were performed as described above. Again, exuberant scar tissue and bone formation was encountered and at this level. There was also a large disc osteophyte complex that was identified once disc space was found due to previous surgery. There was exuberant scar tissue and ligamental tissue in the foramen bilaterally which was removed with kerrison and decompressed off the roots. Once encountered, the disc space was then accessed in a similar fashion and neural elements protected. Intradiscal, 3 column osteotomy was then done for deformity correction. Osteotome was used to make osteotomy in L3 and L4 and for complete disc removal. This was passed into the anterior 1/3 of L3. This allowed for loosening of this level and correction. Down biting curette was used to release the disc annulus and PLL across completely. This allowed for disc removal and cartilage removal followed by pituitary. Cage was then selected based on shaving and trials. Bleeding endplates were encountered and cartilage removed. Autograft, allograft were then placed anterior to the cage. The cage was then impacted into place under lateral imaging while protecting neural elements. The cage was then expanded into position and showed good lift and correction. Baptism of lordosis and height achieved. Meticulous hemostasis then performed, and attention turned to L2-3. Rods were then sized and selected and placed into L5 screws b/l. Set screws locked these in place and then sequentially reduced into L4 and L3 b/l for reduction of listhesis. This was accomplished. Set screws were then all placed and finally tightened. A cross link was selected and placed and final tightened. TPs were then decorticated with a high speed heena. The wound was irrigated with 3L Ancef irrigation, 3L gentamicin irrigation, 1L Irricept, 1L Betadine and 3L NSS. Tisseal and Surgicel were placed over the dura. Autograft and MagnatOs then placed in the posterolateral gutters and impacted into place. Deep drain placed and secured to the skin. 2 g Vancomycin powder placed in the wound bed. Final images confirmed good placement of hardware and good reduction of listhesis as well as roman catholic of height and lordosis. Fascia was then closed with #1 PDS. Deep subq closed with 0 Vicryl. Superficial subq closed with 2-0 Vicryl and skin with alice. Wound edges approximated very well. The wound was then cleaned with alcohol and dried. Wounds dressed with adaptic, 4x4, abd drain sponge and tegaderms. The patient was then transferred off the table back to their hospital bed a- traumatically. The drain continued to hold suction. They were extubated by the department of anesthesia. They were then transferred to PACU in stable condition having tolerated the procedure with no complications.
[2024-10-30] MEDS ORDERED: HYDROmorphone 1 MG/ML 1 ML SYRINGE IVP PRN (11:40)
[2024-10-30] MEDS ORDERED: MAGNESIUM HYDROXIDE 2,400 MG/30 ML CUP PO PRN (11:40)
[2024-10-30] MEDS ORDERED: bisacodyL 10 MG SUPP RECTAL PRN (11:40)
[2024-10-30] MEDS ORDERED: NA PHOS,M-B/NA PHOS,DI-BA 133 ML ENEMA RECTAL PRN (11:40)
[2024-10-30] MEDS ORDERED: ONDANSETRON 4 MG/2 ML VIAL IVP PRN (11:40)
[2024-10-30] MEDS ORDERED: HYDROmorphone 0.5 MG/0.5 ML SYRINGE IVP PRN (11:40)
[2024-10-30] MEDS ORDERED: CYCLOBENZAPRINE 10 MG TAB PO PRN (11:40)
--- NOTE | 2024-10-30 11:54 | XR ---
Fluoroscopy INDICATION: Pain FINDINGS: Fluoroscopy time: 48 seconds. Total dose area product (DAP) in uGy*m?, mGy*cm? (or similar): 12.1946 Images obtained: 10. Images document lumbar fixation IMPRESSION: 1. Documentation of fluoroscopy. [facility], , 10/30/2024 11:51 AM
[2024-10-30] MEDS: HYDROmorphone 0.5 MG/0.5 ML SYRINGE IVP PRN (12:19)
--- NOTE | 2024-10-30 15:01 | FL ---
Fluoroscopy INDICATION: Pain FINDINGS: Fluoroscopy time: 48 seconds. Total dose area product (DAP) in uGy*m?, mGy*cm? (or similar): 12.1946 Images obtained: 0. Images document the procedure. IMPRESSION: 1. Documentation of fluoroscopy. [facility], , 10/30/2024 2:58 PM
[2024-10-30] MEDS: ACETAMINOPHEN TAB 325 MG TAB PO SCH (15:07)
[2024-10-30] MEDS: 0.9% NACL WITH KCL 20 MEQ/L 1,000 ML IV SCH (15:07)
[2024-10-30] MEDS: ONDANSETRON 4 MG/2 ML VIAL IVP ONE (15:07)
[2024-10-30] MEDS: ceFAZolin 2 GM in DEXTROSE 5% IN WATER 50 ML IVPB SCH (15:55)
[2024-10-30] MEDS: KETOROLAC 15 MG/ML 1 ML VIAL IVP SCH (15:55)
[2024-10-30] MEDS ORDERED: DEXTROSE 50% SYRINGE 50 ML IVP PRN ×2 (16:50)
[2024-10-30 16:56] LABS: Glucose,Whole Blood 237 mg/dL (70-110)
[2024-10-30] MEDS: INSULIN LISPRO (HumaLOG) 100 UNIT/ML 10 mL VL SQ SCH (17:06)
[2024-10-30 20:02] LABS: Glucose,Whole Blood 189 mg/dL (70-110)
[2024-10-30] MEDS: HYDROcodone/APAP 7.5-325MG 1 EACH TAB PO PRN (20:47)
[2024-10-30] MEDS: BENZTROPINE MESYLATE 0.5 MG TAB PO SCH (20:47)
[2024-10-30] MEDS: GLIMEPIRIDE 4 MG TAB PO SCH (20:48)
[2024-10-31 05:59] LABS: Glucose,Whole Blood 148 mg/dL (70-110)
[2024-10-31] MEDS: metFORMIN 500 MG TAB PO SCH (06:04)
[2024-10-31] MEDS: SENNOSIDES-DOCUSATE SODIUM 1 EACH TAB PO SCH (07:52)
[2024-10-31] MEDS: polyethylene glycoL 3350 17 GM POWD.PACK PO SCH (07:56)
[2024-10-31 08:44] LABS: Calcium 8.1 mg/dL (8.7-10.3); Carbon Dioxide 25.7 mmol/L (21.6-31.8); Chloride 107 mmol/L (96-109); Glucose 167 mg/dL (70-110); Potassium 4.3 mmol/L (3.5-5.5); Sodium 139 mmol/L (135-145)
[2024-10-31 08:53] LABS: Basophils # (A) 0.05 X 10*3/uL (0.00-0.10); Basophils % (A) 0.6 %; Eosinophils # (A) 0.07 X 10*3/uL (0.04-0.35); Eosinophils % (A) 0.8 %; HCT 36.4 % (39.6-50.0); HGB 12.1 g/dL (13.0-17.0); Lymphocytes % (A) 26.8 %; MCH 30.6 pg (27.0-32.0); MCHC 33.2 g/dL (32.0-37.0); MCV 92.2 FL (80.0-97.0); Mean Platelet Volume 12.1 FL (9.5-12.2); Monocytes # (A) 0.91 X 10*3/uL (0.20-1.00); Monocytes % (A) 10.2 %; NRBC Per 100 WBC 0 X 10*3/uL (0.00-0.01); Neutrophils # (A) 5.47 X 10*3/uL (1.80-7.70); Neutrophils % (A) 61.2 %; Platelet Count 138 X 10*3/uL (140-440); RBC 3.95 X 10*6/uL (4.40-5.60); RDW 12.2 % (11.5-14.5); WBC 8.94 X 10*3/uL (4.50-10.00)
[2024-10-31] MEDS: HYDROcodone/APAP 10-325MG 1 EACH TAB PO PRN (09:41)
--- NOTE | 2024-10-31 09:47 | P.PN ---
Subjective Progress Note Date: 10/31/24 Principal diagnosis: Status post L3-L5 posterior lateral decompression fusion Patient was evaluated at bedside, he is resting in his hospital chair, his was also present at bedside. The urinary catheter remains in place. The Hemovac drain is also putting out moderate bloody serosanguineous fluid. Patient just got back from CT scan. Patient's pain is well-controlled with current medicines. He has been up and ambulating with the assistance of a walker, he is working with physical therapy little bit later today. Denies any headaches, lightheadedness, chest pain or shortness of breath Objective - Vital Signs Vital signs: Vital Signs Temp 98.6 F 10/31/24 07:24 Pulse 89 10/31/24 07:24 Resp 17 10/31/24 07:24 BP 122/81 10/31/24 07:24 Pulse Ox 98 10/31/24 07:24 FiO2 Intake & Output 10/30/24 10/31/24 10/31/24 18:59 06:59 18:59 Intake Total 2752 Output Total 1375 2750 Balance 1377 -2750 Weight 95.3 kg Intake: IV 2752 Output: Drainage 50 Lower Back 50 Urine 975 2700 Estimated Blood Loss 400 Other: Voiding Method Indwelling Catheter Indwelling Catheter - Exam Gen: AOx3, NAD VSS stable at this time Integument: Dressing is in good position and condition, drain is in good position and condition Palpation: Mild tenderness with palpation of the lower lumbar spine ROM: Full range of motion all major muscle groups of the bilateral upper and lower extremities, no focal deficits appreciated Sensory Exam: Senory exam to light touch is intact C5-T1 Senosry exam to light touch is intact L2-S1 Motor: 5/5 strength appreciated in the bilateral upper extremities with shoulder elevation, shoulder abduction, elbow extension, elbow flexion, wrist extension, wrist flexion, quenching car operator 4/5 strength appreciated the bilateral lower extremities with hip flexion, knee extension, knee flexion, plantarflexion, dorsiflexion, EHL, FHL Reflexes: 2/4 in all UE and LE Negative Arleth's bilateral Negative clonus bilaterally Special Test: Negative straight leg raise bilaterally - Labs CBC & Chem 7: 10/31/24 04:58 10/31/24 04:58 Labs: Abnormal Lab Results - Last 24 Hours (Table) 0610/30/24 10/31/24 Range/Units 16:48 20:01 04:58 RBC 3.95 L (4.40-5.60) X 10*6/uL Hgb 12.1 L (13.0-17.0) g/dL Hct 36.4 L (39.6-50.0) % Plt Count 138 L (140-440) X 10*3/uL BUN/Creatinine Ratio (12.00-20.00) Ratio Glucose (70-110) mg/dL POC Glucose (mg/dL) 237 H 189 H (70-110) mg/dL Calcium (8.7-10.3) mg/dL 10/31/24 10/31/24 Range/Units 04:58 05:57 RBC (4.40-5.60) X 10*6/uL Hgb (13.0-17.0) g/dL Hct (39.6-50.0) % Plt Count (140-440) X 10*3/uL BUN/Creatinine Ratio 10.00 L (12.00-20.00) Ratio Glucose 167 H (70-110) mg/dL POC Glucose (mg/dL) 148 H (70-110) mg/dL Calcium 8.1 L (8.7-10.3) mg/dL Assessment and Plan Assessment: Postoperative day #1 status post L3-L5 posterior lateral decompression and fusion Plan: Pain control, continue with current medications DVT prophylaxis, aspirin 81 mg daily to start later today Wound care instructions discussed, this to include monitoring Hemovac drain at this time Discussed with nursing, remove Arreola catheter monitor for retention PT/OT evaluation, discussed use of the LSO brace to be used when walking longer distances Encourage incentive spirometer Medical recommendations Discharge planning: Discussed with patient we will assess drain tomorrow morning and hopeful discharge to home with home health care Time with Patient: Less than 30
--- NOTE | 2024-10-31 09:48 | CT ---
EXAMINATION TYPE: CT lumbar spine wo con DATE OF EXAM: 10/31/2024 9:11 AM COMPARISON: 07/15/2024.. CLINICAL INDICATION: Male, 53 years old with history of s//p lumbar fusion; PHH, s//p lumbar fusion TECHNIQUE: Multiple axial images were obtained from the midportion of T11 through the sacroiliac timo nts. Soft tissue and bone windows in coronal and sagittal planes were obtained and reviewed. Contrast used: mL of , (None, if empty). Oral contrast used: (None, if empty). CT DLP: 1445.6 mGycm, Automated exposure control for dose reduction was used. FINDINGS: Postsurgical changes to the lumbar spine with fixation hardware at L3-L4 and L5.. Discectomy at L3-L4 and L4-L5.. Hardware limits evaluation at these levels. Hardware appears intact. No evidence of frac ture. Laminectomy changes at L3-L4 and L5 present. Postsurgical changes in the soft tissues with foci of gas present. Posterior back skin alice are pr esent. The gallbladder is surgically absent. IMPRESSION: Postsurgical changes without evidence of immediate post operative complication. [facility], , 10/31/2024 9:46 AM
[2024-10-31 10:59] LABS: Glucose,Whole Blood 172 mg/dL (70-110)
[2024-10-31] MEDS: ASPIRIN 81 MG PO SCH (11:51)
--- NOTE | 2024-10-31 15:02 | P.CONS ---
History of Present Illness - Reason for Consult Consult date: 10/31/24 Medical management diabetes mellitus Requesting physician: Jose David Armas - Chief Complaint Status post L3-L5 posterior lateral decompression fusion - History of Present Illness This a pleasant 53-year-old gentleman with past medical history significant for diabetes mellitus, former nicotine dependence, anxiety, ADD/ADHD, pain clinic procedure, prior back surgery multiple other medical issues status post L3-5 posterior lateral decompression fusion. Pain currently controlled. Has not yet been out of bed, PT pending. Blood sugars controlled. Tolerating diet.denies nausea, vomiting. Denies abdominal pain. Hemoglobin 12.1. Denies chest pain, palpitations or shortness of breath. Denies lightheadedness dizziness or focal deficits. Denies headache. Review of Systems Constitutional: Denied any fever or chills. Cardio vascular: denied any chest pain, palpitations Gastrointestinal denied any nausea vomiting Pulmonary: Denied any shortness of breath cough Neurologic denied any new focal deficits ROS Statement: Those systems with pertinent positive or pertinent negative responses have been documented in the HPI. ROS Other: All systems not noted in ROS Statement are negative. Past Medical History Past Medical History: Diabetes Mellitus Additional Past Medical History / Comment(s): pain clinic procedures, tremors- side effects of meds per pt. History of Any Multi-Drug Resistant Organisms: None Reported Past Surgical History: Back Surgery, Cholecystectomy Additional Past Surgical History / Comment(s): , L tear duct replaced, bilateral eyes lasik surgery for vision correction in 2018. epidural steriod for pain, carpal tunnel surgery, PAIN CLINIC PROCEDURES, COLONOSCOPY Past Anesthesia/Blood Transfusion Reactions: No Reported Reaction Past Psychological History: ADD/ADHD, Anxiety Additional Psychological History / Comment(s): . Smoking Status: Former smoker Past Alcohol Use History: Rare Additional Past Alcohol Use History / Comment(s): Pt smoked from 1985 until 2011 Past Drug Use History: None Reported - Past Family History Father Additional Family Medical History / Comment(s): Stents X2. Father had his CA in his mid 50s. Mother Family Medical History: No Reported History Medications and Allergies Home Medications Medication Instructions Recorded Confirmed Type Glimepiride [Amaryl] 4 mg PO HS 03/09/22 10/24/24 History Cariprazine HCl [Vraylar] 3 mg PO HS 11/07/23 10/24/24 History metFORMIN HCL 1,000 mg PO DAILY 11/07/23 10/24/24 History Semaglutide [Ozempic] 2 mg SQ MO 02/06/24 10/24/24 History Benztropine Mesylate [Cogentin] 0.5 mg PO HS 02/14/24 10/24/24 History Vilazodone HCl 40 mg PO DAILY 02/14/24 10/24/24 History Allergies Allergy/AdvReac Type Severity Reaction Status Date / Time No Known Allergies Allergy Verified 10/30/24 06:22 Physical Exam Vitals: Vital Signs Temp Pulse Pulse Resp BP Pulse Ox 10/31/24 13:27 98.2 F 103 H 16 129/81 98 10/31/24 07:24 98.6 F 89 17 122/81 98 10/31/24 01:22 98.1 F 94 16 100/66 97 10/30/24 20:40 98 114 H 15 10/30/24 19:31 98.6 F 114 H 15 103/65 94 L 10/30/24 16:35 90 118/80 95 10/30/24 16:05 108 H 124/86 97 10/30/24 15:35 85 114/75 96 10/30/24 15:20 98 124/80 94 L 10/30/24 15:05 97.8 F 97 18 113/78 92 L Intake and Output 10/30/24 10/31/24 10/31/24 22:59 06:59 14:59 Output Total 725 2750 Balance -725 -2750 Output: Drainage 50 Lower Back 50 Urine 725 2700 Other: Voiding Method Indwelling Catheter Indwelling Catheter PHYSICAL EXAM: VITAL SIGNS: [Reviewed] GENERAL: Pleasant 53-year-old male lying in bed, alert and oriented x 3, no acute distress HEENT: Normocephalic, atraumatic ,conjunctivae normal. eyes normal. mmm. NECK: Supple, no JVD. CARDIOVASCULAR: S1, S2 regular.. No murmur RESPIRATION: Unlabored, equal air entry, clear to auscultation. ABDOMEN: Soft, nondistended, nontender . No guarding. no masses palpable. Bowel sounds heard. LEGS: No edema. no swelling, no calf tenderness, peripheral pulses intact NERVOUS SYSTEM: Cranial N 2-12 grossly normal. Moves all 4 limbs. No focal deficits. Sensation grossly intact. Skin: Warm and dry, no rash Results CBC & Chem 7: 10/31/24 04:58 10/31/24 04:58 Labs: Abnormal Lab Results - Last 24 Hours (Table) 10/30/24 10/30/24 10/31/24 Range/Units 16:48 20:01 04:58 RBC 3.95 L (4.40-5.60) X 10*6/uL Hgb 12.1 L (13.0-17.0) g/dL Hct 36.4 L (39.6-50.0) % Plt Count 138 L (140-440) X 10*3/uL BUN/Creatinine Ratio (12.00-20.00) Ratio Glucose (70-110) mg/dL POC Glucose (mg/dL) 237 H 189 H (70-110) mg/dL Calcium (8.7-10.3) mg/dL 10/31/24 10/31/24 10/31/24 Range/Units 04:58 05:57 10:57 RBC (4.40-5.60) X 10*6/uL Hgb (13.0-17.0) g/dL Hct (39.6-50.0) % Plt Count (140-440) X 10*3/uL BUN/Creatinine Ratio 10.00 L (12.00-20.00) Ratio Glucose 167 H (70-110) mg/dL POC Glucose (mg/dL) 148 H 172 H (70-110) mg/dL Calcium 8.1 L (8.7-10.3) mg/dL Assessment and Plan Assessment: Status post L3-L5 posterior lateral decompression and fusion Acute blood loss anemia, postoperative, expected outcome, asymptomatic. Diabetes mellitus Anxiety ADD, ADHD Former nicotine dependence Plan: Continue on current medication regime ,monitoring and symptomatic treatment. Pain management and DVT prophylaxis as per primary. PT. aggressive pulmonary toileting with incentive spirometer reinforced. Home meds have been reviewed, and resumed accordingly. Tight glycemic control with NovoLog sliding scale in place. discharge planning in progress for tomorrow as per orthopedic surgery. Thank you for the consult. The impression and plan of care has been dictated as directed. : I performed a history and examination of this patient, discussed the same with the dictator. I agree with the dictator's note ,documented as a scribe. Any additional findings or plans will be noted.
[2024-10-31 16:21] LABS: Glucose,Whole Blood 191 mg/dL (70-110)
[2024-10-31 21:01] LABS: Glucose,Whole Blood 176 mg/dL (70-110)
[2024-11-01 01:00] VITALS: TEMP 98.3
[2024-11-01 06:08] LABS: Glucose,Whole Blood 144 mg/dL (70-110)
[2024-11-01 09:00] VITALS: BP 114/77; PULSE 107; RESP 16
--- NOTE | 2024-11-01 10:08 | P.PN ---
Subjective Progress Note Date: 11/01/24 Principal diagnosis: Status post L3-L5 posterior lateral decompression fusion Patient was evaluated at bedside, he is resting comfortably. Patient feels the pain is well-controlled. He has been urinating since removal of the catheter, he is passing a lot of gas but has not had a bowel movement at this time. Denies any headaches, lightheadedness, chest pain or shortness of breath Objective - Vital Signs Vital signs: Vital Signs Temp 98.3 F 11/01/24 07:41 Pulse 107 H 11/01/24 07:41 Resp 16 11/01/24 07:41 BP 114/77 11/01/24 07:41 Pulse Ox 96 11/01/24 07:41 FiO2 Intake & Output 10/31/24 11/01/24 11/01/24 18:59 06:59 18:59 Output Total 900 120 70 Balance -900 -120 -70 Output: Drainage 100 120 70 Lower Back 100 120 70 Urine 800 Other: Voiding Method Indwelling Catheter # Voids 4 2 - Exam Gen: AOx3, NAD VSS stable at this time Integument: Postop dressing changed today, drain was left in. [place] are all in good position and condition Palpation: Mild tenderness with palpation of the lower lumbar spine ROM: Full range of motion all major muscle groups of the bilateral upper and lower extremities, no focal deficits appreciated Sensory Exam: Senory exam to light touch is intact C5-T1 Senosry exam to light touch is intact L2-S1 Motor: 5/5 strength appreciated in the bilateral upper extremities with shoulder elevation, shoulder abduction, elbow extension, elbow flexion, wrist extension, wrist flexion, certified ethical hacker 4+/5 strength appreciated the bilateral lower extremities with hip flexion, knee extension, knee flexion, plantarflexion, dorsiflexion, EHL, FHL Reflexes: 2/4 in all UE and LE Negative Arleth's bilateral Negative clonus bilaterally Special Test: Negative straight leg raise bilaterally - Labs CBC & Chem 7: 10/31/24 04:58 10/31/24 04:58 Labs: Abnormal Lab Results - Last 24 Hours (Table) 10/31/24 10/31/24 10/31/24 Range/Units 10:57 16:20 20:59 POC Glucose (mg/dL) 172 H 191 H 176 H (70-110) mg/dL 06/21/25 Range/Units 06:06 POC Glucose (mg/dL) 144 H (70-110) mg/dL Assessment and Plan Assessment: Postoperative day #2 status post L3-L5 posterior lateral decompression and fusion Plan: Pain control, plan for discharge home on oral medication DVT prophylaxis, continue aspirin during hospital stay Wound care instructions discussed, new dressing applied today, will leave Hemovac in place PT/OT evaluation, discussed use of the LSO brace to be used when walking longer distances Encourage incentive spirometer Medical recommendations Discharge planning: Plan for discharge home today Time with Patient: Less than 30
--- NOTE | 2024-11-01 10:13 | P.DS ---
Providers Date of admission: 10/30/24 05:43 Expected date of discharge: 11/01/24 Attending physician: Jose David Armas DO Consults: 10/30/24 11:40 Consult Physician Routine Consulting Provider: Lele Guerin Reason/Comments: medical management Do you want consulting provider notified?: Yes Primary care physician: Lele Guerin [facility] Course: Date of admission: 10/30/2024 Date of discharge: 11/01/2024 Admission diagnosis: Status post L3-L5 posterior lateral decompression and fusion Discharge diagnosis: Same Attending physician: Dr. Armas Surgical procedures: L3-L5 posterior lateral decompression and fusion Brief history: Patient is a 53-year-old male with a history of progressive primary low back pain, lower extremity radiculopathy and paresthesias, signifi cant spondylosis and stenosis from L3-L5. At this point patient has failed conservative treatment measures and has opted to proceed with a elective L3-L5 posterior lateral decompression and fusion. Hospital course: Details of patient's surgery can be found in operative report. Patient tolerated the procedure well and was subsequently transported to orthopedic floor. Patient's orthopeidc and medical care was provided daily. Patient had daily laboratory tests performed for evaluation of overall blood counts. Patient had daily physical therapy to include strengthening range of motion as well as education with walker ambulation. Patient was treated with aspirin for their postoperative DVT prophylaxis during their inpatient stay. Patient was noted to have a relatively uneventful postoperative course. Patient reported satisfactory pain control with oral pain medications by postoperative day 1. Patient showed satisfactory progress with physical therapy. Patient moved steadily through the program and had no difficulty meeting the goals by postoperative day 2. Given patient's otherwise satisfactory course and having met physical therapy goals, plan is to discharge patient [home] on postoperative day 2. Discharge condition/disposition: Patient will be discharged [home] in stable condition. Discharge medications: Instructions are given on resumption of patient's normal daily medications per primary care recommendation, in addition patient will be prescribed [place] 7.5 mg / 325 mg, naproxen 500 mg, Flexeril 5 mg, Duricef 500 mg, MiraLAX 17 g, senna S. Spine Discharge and Recovery Instructions Medications: See medication list All medication refills should be obtained through your primary care doctor or your clinic spine surgeon. Please discuss prescription refills at your follow up appointment. Do not call the hospital for medication refills. Dressing: Leave your dressing in place for a total of 5 days post operatively. Then you may remove your dressing and leave open to air. Keep the area clean and if not able to keep area clean, then cover with sterile gauze and tape. Showering: You may shower 3 days after your procedure allowing soap and water to run over incision. Do not scrub. Do not soak. Blot dry. Follow up: Please confirm a follow up appointment with your surgeon 3 weeks post operatively. Please make an appointment to follow up with your PCP in 1-2 weeks after surgery for evaluation '3 phase, 3-week plan' POST OP WEEKS 1-3 1. Lifting/carrying/pushing/pulling limited to less than 5 pounds. 2. Do not sit for longer than 15 minutes at one time. Get up and walk around. Prolonged sitting is NOT advised. If you lay down, see if you can tolerate laying down on you front (belly side) 3. Walk for periods of 15 minutes = 1 mile but no longer; do it multiple times times each day. 4. Ice your low back after activity. POST OP WEEKS 3-6 1. Lifting limited to less than 20 pounds. 2. Do not sit for longer than 30 minutes at a time. Frequently change positions. Use a sit-to stand workstation or take frequent breaks from sitting if you have returned to work. 3. Walk for 30 minutes each day. If possible, do these three or more times a day POST OP WEEKS 6+ At your 6-week appointment we will give you a physical therapy referral to focus on a core stabilization and strengthening program. You should also work on leg & buttock strengthening, hamstring & quadriceps stretching, and continue a low impact aerobic activity program such as swimming, walking, or riding a stationary bicycle. During the initial 6 weeks after your surgery, you are at the highest risk of re-injuring your spine. You should generally avoid BLT's (bending, lifting and twisting combination motions) and follow the above guidelines to reduce the chance of reinjury. You can anticipate post op appointments in our office at approximately 3 weeks and 6 weeks after your surgery. INCISION CARE: If your incision is not draining you do NOT need to cover it with a dressing. Keep your incision clean, dry and intact. In most cases, we apply skin glue, alice or sutures to the incision at the time of surgery. This will be like a crust or have the appearance of a scab and will fall off in time on its own. The stitches or alice need to be removed at 3 weeks post op appointment. You may begin to shower 3 days after surgery (this allows the glue to sousa well). However, please avoid scrubbing the incision site or peeling off any of the skin glue. This will ensure optimal healing of your incision. Also, during this time avoid soaking the incision area in water - this includes swimming pools, hot tubs or baths. No ointments, lotions or oils on the incision until your surgeon allows. Leave alice, sutures or glue in place. Neurological dysfunction that comes on suddenly can also be a sign of a stroke. Below some common symptoms of a stroke are listed: B - balance difficulty such as sudden onset walking or leaning to one side - NEW E - eye problem such as sudden double vision or trouble seeing on one side - NEW F - Facial weakness or numbness on one side - NEW A - Arm or leg weakness or numbness on one side - NEW S - Slurred speech or difficulty with word finding - NEW T - Time is BRAIN! Call 911 as soon as you recognize these symptoms Diet: Consume a regular diet rich in vegetables and lean protein such as chicken or fish. You should consume in a ratio of approximately 20% fats|40% carbohydrates|40%protein. Vegetables, sweet potatoes, brown rice or quinoa are examples of good carbohydrates. Chips, white bread, cookies and sweets/sugar are examples of bad carbohydrates. Limit your bad carbs, go wild with good carbs. "Life's Simple 7" Guidelines as per [place] [employer] These will help you reclaim your life after surgery and tree surgeon helper in your recovery, keeping in mind your restrictions. (1) Get Active. Physical activity can help people lose weight, control high blood pressure and cholesterol, feel emotionally better, and sleep better. (2) Control Cholesterol. Avoid a diet high in saturated fat, trans fat, & cholesterol. Limit whole milk & cream, ice cream, butter, egg yolks, processed meats (like sausage and hot dogs), and fatty meats. Choose healthy foods that are low in saturated fat, trans fat and cholesterol which include: Fruits and vegetables, fiber rich grain products (like whole grain pasta and brown rice), lean meat such as chicken, fish, nuts, seeds, and legumes. (3) Eat Better. Eat small portions. Shop at the grocery with a list and do not stray from it. Tips for a healthy diet include: Limit sodium intake to less than 1500mg daily, avoid prepackaged, processed, and fast foods, choose a diet rich in fruits, vegetables, and whole grain, high fiber foods, and limit saturated & cholesterol in your diet. (4) Manage Blood Pressure. If you have high blood pressure, you should have a cuff at home so that you can check your blood pressure regularly. Be sure you have a good cuff. An arm one is generally better than a wrist one. Bring the cuff to a doctor's appointment to validate that the measurements that your cuff are taking are accurate. Take your blood pressure twice daily when you are sitting down and relaxing. Record the numbers in a log and bring this log with you to your doctors' appointments. (5) Lose Weight if your BMI is above 25. A healthy BMI is between 19-25. To calculate Your BMI, you may use a Standard BMI Calculator on the NIH BMI website: <www.nhlbi.nih.gov/guidelines/obesity/BMI/bmicalc.htm>. Weigh oneself daily. If you are overweight, set a goal to lose weight. A pound a week loss if needed is a good target. (6) Reduce Blood Sugar. Limit foods and liquids with "added sugars." (Added sugars include sucrose, fructose, glucose, maltose, dextrose, high fructose corn syrup, corn syrup, concentrated fruit juice and honey). (7) Stop Smoking. If you smoke, quitting smoking is one of the best things that you can do for your health. Smoking increases your risk of heart attack, stroke, and peripheral vascular disease, which is a build-up of plaque in your arteries. Please discard all the cigarettes and lighters in your house. Have a plan for what you will do when you have the urge to smoke. Direct and second- hand smoke shortens your life as well as the lives of your family, friends and others around you. For your health and the health of those around you, please consider quitting! Proper Bending Body Mechanics: Maintain a wide stance with one foot slightly in front of the other. Keep your back straight. Bend utilizing the strength in your hips and knees. Do not bend at the waist. Maintain the lifted object at your waist-level close to your body. Avoid lifting weight that causes immediately pain or pain anywhere in the body afterwards. Smoking/Nicotine If there was ever one thing that you could do to increase your overall health, decrease your risk of cardiovascular problems by about 39% the second you make the choice, it is to STOP SMOKING. Your body's most instant gratification is the second you stop smoking. We have all heard the studies, read the articles but it is true, smoking is extremely bad for your overall health, and moreover it is detrimental to your bone health. Nicotine, IN ANY FORM, kills bone cells, prevents your body from healing fractures, and significantly prolongs healing after surgery. In spine surgery specifically, it increases your risk of not healing your bones to create a fusion and increases your risk of having a revision surgery due to this up to 60%. I know it is hard. I know it feels impossible. But there are ways. Take control of your life. We are here to help you through it. And when you are ready, ask us and we can direct you to help if you desire. Use the START Plan to Quit Smoking (please visit the Helpguide.org website listed below for more information): S = Set a quit date. Choose a date within the next 2 weeks, so you have enough time to prepare without losing your motivation to quit. If you mainly smoke at work, quit on the weekend, so you have a few days to adjust to the change. T = Tell family, friends, and co-workers that you plan to quit. Let your friends and family in on your plan to quit smoking and tell them you need their support and encouragement to stop. Look for a quit howard who wants to stop smoking as well. You can help each other get through the rough times. A = Anticipate and plan for the challenges you'll face while quitting. Most people who begin smoking again do so within the first 3 months. You can help yourself make it through by preparing ahead for common challenges, such as nicotine withdrawal and cigarette cravings. R = Remove cigarettes and other tobacco products from your home, car, and work. Throw away all your cigarettes (no emergency pack!), lighters, ashtrays, and matches. Wash your clothes and freshen up anything that smells like smoke. Shampoo your car, clean your drapes and carpet, and steam your furniture. T = Talk to your doctor about getting help to quit. Your doctor can prescribe medication to help with withdrawal and suggest other alternatives. If you can't see a doctor, you can get many products over the coun ter at your local pharmacy or grocery store, including the nicotine patch, nicotine lozenges, and nicotine gum. Resources for Quitting Smoking: <https://www.[place].gov/documents/[facility]/Quit_Tob acco_Resources_for_patients_313480_7.pdf> Supplementation: Take recommended dosages of Vitamin D and Calcium to help fortify your bones and help them to heal. See your health maintenance packet for dosages and recommended levels. DVT/VTE prophylaxis: You will be given compression stockings from the hospital. Wear these daily for the first two weeks after surgery. You may take them off at night. You may be prescribed a medication to help thin your blood. Take this as directed. If you are not prescribed this medication, early and frequent ambulation has been shown to be the best prophylaxis to deep vein thrombosis and sequelae related to this event. Procedures: L3-L5 posterior lateral decompression and fusion Patient Condition at Discharge: Good Plan - Discharge Summary Discharge Rx Participant: Yes New Discharge Prescriptions: New cefaDROXiL [Duricef] 500 mg PO Q12HR 5 Days #10 cap polyethylene glycoL 3350 [Miralax] 17 gm PO DAILY PRN #21 packet PRN Reason: Constipation HYDROcodone/APAP 7.5-325MG [[place] 7.5] 1 each PO Q4HR PRN #42 tab PRN Reason: Pain Sennosides/Docusate Sodium [Senna-S 8.6-50 mg Tablet] 2 each PO DAILY PRN #30 tablet PRN Reason: Constipation Naproxen [EC-Naprosyn] 500 mg PO Q12HR PRN #40 tab PRN Reason: Pain Cyclobenzaprine [Flexeril] 5 mg PO BID PRN #30 PRN Reason: Muscle Spasm No Action Semaglutide [Ozempic] 2 mg SQ MO Glimepiride [Amaryl] 4 mg PO HS metFORMIN HCL 1,000 mg PO DAILY Cariprazine HCl [Vraylar] 3 mg PO HS Benztropine Mesylate [Cogentin] 0.5 mg PO HS Vilazodone HCl 40 mg PO DAILY Discharge Medication List Glimepiride [Amaryl] 4 mg PO HS 03/09/22 [History] Cariprazine HCl [Vraylar] 3 mg PO HS 11/07/23 [History] metFORMIN HCL 1,000 mg PO DAILY 11/07/23 [History] Semaglutide [Ozempic] 2 mg SQ MO 02/06/24 [History] Benztropine Mesylate [Cogentin] 0.5 mg PO HS 02/14/24 [History] Vilazodone HCl 40 mg PO DAILY 02/14/24 [History] Cyclobenzaprine [Flexeril] 5 mg PO BID PRN #30 11/01/24 [Rx] HYDROcodone/APAP 7.5-325MG [[place] 7.5] 1 each PO Q4HR PRN #42 tab 11/01/24 [Rx] Naproxen [EC-Naprosyn] 500 mg PO Q12HR PRN #40 tab 11/01/24 [Rx] Sennosides/Docusate Sodium [Senna-S 8.6-50 mg Tablet] 2 each PO DAILY PRN #30 tablet 11/01/24 [Rx] cefaDROXiL [Duricef] 500 mg PO Q12HR 5 Days #10 cap 11/01/24 [Rx] polyethylene glycoL 3350 [Miralax] 17 gm PO DAILY PRN #21 packet 11/01/24 [Rx] Follow up Appointment(s)/Referral(s): Jose David Armas DO [Doctor of Osteopathic Medicine] - 2 Weeks Activity/Diet/Wound Care/Special Instructions: Spine Discharge and Recovery Instructions Medications: See medication list All medication refills should be obtained through your primary care doctor or your clinic spine surgeon. Please discuss prescription refills at your follow up appointment. Do not call the hospital for medication refills. Dressing: Leave your dressing in place for a total of 5 days post operatively. Then you may remove your dressing and leave open to air. Keep the area clean and if not able to keep area clean, then cover with sterile gauze and tape. Showering: You may shower 3 days after your procedure allowing soap and water to run over incision. Do not scrub. Do not soak. Blot dry. Follow up: Please confirm a follow up appointment with your surgeon 3 weeks post operatively. Please make an appointment to follow up with your PCP in 1-2 weeks after surgery for evaluation '3 phase, 3-week plan' POST OP WEEKS 1-3 1. Lifting/carrying/pushing/pulling limited to less than 5 pounds. 2. Do not sit for longer than 15 minutes at one time. Get up and walk around. Prolonged sitting is NOT advised. If you lay down, see if you can tolerate laying down on you front (belly side) 3. Walk for periods of 15 minutes = 1 mile but no longer; do it multiple times times each day. 4. Ice your low back after activity. POST OP WEEKS 3-6 1. Lifting limited to less than 20 pounds. 2. Do not sit for longer than 30 minutes at a time. Frequently change positions. Use a sit-to stand workstation or take frequent breaks from sitting if you have returned to work. 3. Walk for 30 minutes each day. If possible, do these three or more times a day POST OP WEEKS 6+ At your 6-week appointment we will give you a physical therapy referral to focus on a core stabilization and strengthening program. You should also work on leg & buttock strengthening, hamstring & quadriceps stretching, and continue a low impact aerobic activity program such as swimming, walking, or riding a stationary bicycle. During the initial 6 weeks after your surgery, you are at the highest risk of re-injuring your spine. You should generally avoid BLT's (bending, lifting and twisting combination motions) and follow the above guidelines to reduce the chance of reinjury. You can anticipate post op appointments in our office at approximately 3 weeks and 6 weeks after your surgery. INCISION CARE: If your incision is not draining you do NOT need to cover it with a dressing. Keep your incision clean, dry and intact. In most cases, we apply skin glue, alice or sutures to the incision at the time of surgery. This will be like a crust or have the appearance of a scab and will fall off in time on its own. The stitches or alice need to be removed at 3 weeks post op appointment. You may begin to shower 3 days after surgery (this allows the glue to sousa well). However, please avoid scrubbing the incision site or peeling off any of the skin glue. This will ensure optimal healing of your incision. Also, during this time avoid soaking the incision area in water - this includes swimming pools, hot tubs or baths. No ointments, lotions or oils on the incision until your surgeon allows. Leave alice, sutures or glue in place. Neurological dysfunction that comes on suddenly can also be a sign of a stroke. Below some common symptoms of a stroke are listed: B - balance difficulty such as sudden onset walking or leaning to one side - NEW E - eye problem such as sudden double vision or trouble seeing on one side - NEW F - Facial weakness or numbness on one side - NEW A - Arm or leg weakness or numbness on one side - NEW S - Slurred speech or difficulty with word finding - NEW T - Time is BRAIN! Call 911 as soon as you recognize these symptoms Diet: Consume a regular diet rich in vegetables and lean protein such as chicken or fish. You should consume in a ratio of approximately 20% fats|40% carbohydrates|40%protein. Vegetables, sweet potatoes, brown rice or quinoa are examples of good carbohydrates. Chips, white bread, cookies and sweets/sugar are examples of bad carbohydrates. Limit your bad carbs, go wild with good carbs. "Life's Simple 7" Guidelines as per [place] [employer] These will help you reclaim your life after surgery and tree surgeon helper in your recovery, keeping in mind your restrictions. (1) Get Active. Physical activity can help people lose weight, control high blood pressure and cholesterol, feel emotionally better, and sleep better. (2) Control Cholesterol. Avoid a diet high in saturated fat, trans fat, & cholesterol. Limit whole milk & cream, ice cream, butter, egg yolks, processed meats (like sausage and hot dogs), and fatty meats. Choose healthy foods that are low in saturated fat, trans fat and cholesterol which include: Fruits and vegetables, fiber rich grain products (like whole grain pasta and brown rice), lean meat such as chicken, fish, nuts, seeds, and legumes. (3) Eat Better. Eat small portions. Shop at the grocery with a list and do not stray from it. Tips for a healthy diet include: Limit sodium intake to less than 1500mg daily, avoid prepackaged, processed, and fast foods, choose a diet rich in fruits, vegetables, and whole grain, high fiber foods, and limit saturated & cholesterol in your diet. (4) Manage Blood Pressure. If you have high blood pressure, you should have a cuff at home so that you can check your blood pressure regularly. Be sure you have a good cuff. An arm one is generally better than a wrist one. Bring the cuff to a doctor's appointment to validate that the measurements that your cuff are taking are accurate. Take your blood pressure twice daily when you are sitting down and relaxing. Record the numbers in a log and bring this log with you to your doctors' appointments. (5) Lose Weight if your BMI is above 25. A healthy BMI is between 19-25. To calculate Your BMI, you may use a Standard BMI Calculator on the NIH BMI website: <www.nhlbi.nih.gov/guidelines/obesity/BMI/bmicalc.htm>. Weigh oneself daily. If you are overweight, set a goal to lose weight. A pound a week loss if needed is a good target. (6) Reduce Blood Sugar. Limit foods and liquids with "added sugars." (Added sugars include sucrose, fructose, glucose, maltose, dextrose, high fructose corn syrup, corn syrup, concentrated fruit juice and honey). (7) Stop Smoking. If you smoke, quitting smoking is one of the best things that you can do for your health. Smoking increases your risk of heart attack, stroke, and peripheral vascular disease, which is a build-up of plaque in your arteries. Please discard all the cigarettes and lighters in your house. Have a plan for what you will do when you have the urge to smoke. Direct and second- hand smoke shortens your life as well as the lives of your family, friends and others around you. For your health and the health of those around you, please consider quitting! Proper Bending Body Mechanics: Maintain a wide stance with one foot slightly in front of the other. Keep your back straight. Bend utilizing the strength in your hips and knees. Do not bend at the waist. Maintain the lifted object at your waist-level close to your body. Avoid lifting weight that causes immediately pain or pain anywhere in the body afterwards. Smoking/Nicotine If there was ever one thing that you could do to increase your overall health, decrease your risk of cardiovascular problems by about 39% the second you make the choice, it is to STOP SMOKING. Your body's most instant gratification is the second you stop smoking. We have all heard the studies, read the articles but it is true, smoking is extremely bad for your overall health, and moreover it is detrimental to your bone health. Nicotine, IN ANY FORM, kills bone cells, prevents your body from healing fractures, and significantly prolongs healing after surgery. In spine surgery specifically, it increases your risk of not healing your bones to create a fusion and increases your risk of having a revision surgery due to this up to 60%. I know it is hard. I know it feels impossible. But there are ways. Take control of your life. We are here to help you through it. And when you are ready, ask us and we can direct you to help if you desire. Use the START Plan to Quit Smoking (please visit the Helpguide.org website listed below for more information): S = Set a quit date. Choose a date within the next 2 weeks, so you have enough time to prepare without losing your motivation to quit. If you mainly smoke at work, quit on the weekend, so you have a few days to adjust to the change. T = Tell family, friends, and co-workers that you plan to quit. Let your friends and family in on your plan to quit smoking and tell them you need their support and encouragement to stop. Look for a quit howard who wants to stop smoking as well. You can help each other get through the rough times. A = Anticipate and plan for the challenges you'll face while quitting. Most people who begin smoking again do so within the first 3 months. You can help yourself make it through by preparing ahead for common challenges, such as nicotine withdrawal and cigarette cravings. R = Remove cigarettes and other tobacco products from your home, car, and work. Throw away all your cigarettes (no emergency pack!), lighters, ashtrays, and matches. Wash your clothes and freshen up anything that smells like smoke. Shampoo your car, clean your drapes and carpet, and steam your furniture. T = Talk to your doctor about getting help to quit. Your doctor can prescribe medication to help with withdrawal and suggest other alternatives. If you can't see a doctor, you can get many products over the counter at your local pharmacy or grocery store, including the nicotine patch, nicotine lozenges, and nicotine gum. Resources for Quitting Smoking: <https://www.[place].gov/documents/[facility]/Quit_Tobacco_Res ources_for_patients_313480_7.pdf> Supplementation: Take recommended dosages of Vitamin D and Calcium to help fortify your bones and help them to heal. See your health maintenance packet for dosages and recommended levels. DVT/VTE prophylaxis: You will be given compression stockings from the hospital. Wear these daily for the first two weeks after surgery. You may take them off at night. You may be prescribed a medication to help thin your blood. Take this as directed. If you are not prescribed this medication, early and frequent ambulation has been shown to be the best prophylaxis to deep vein thrombosis and sequelae related to this event. Discharge Disposition: HOME WITH HOME HEALTH SERVICES
== END 2024-11-01 10:55 | disposition home health service (06) | DRG 427 ==
LOC: 2ORMAIN 05:43 → 4SSUR 12:31
PROVIDERS: ADMIT Orthopaedic Surgery; ATTEND Orthopaedic Surgery
PROC: 0SG1071 Fusion of 2 or more Lumbar Vertebral Joints with Autologous Tissue Substitute, Posterior Approach, Posterior Column, Open Approach (ICD-10-PCS; 2024-10-30)
PROC: 01NB0ZZ Release Lumbar Nerve, Open Approach (ICD-10-PCS; 2024-10-30)
PROC: 0ST20ZZ Resection of Lumbar Vertebral Disc, Open Approach (ICD-10-PCS; 2024-10-30)
PROC: 0QS00ZZ Reposition Lumbar Vertebra, Open Approach (ICD-10-PCS; 2024-10-30)
PROC: 0SP008Z Removal of Spacer from Lumbar Vertebral Joint, Open Approach (ICD-10-PCS; 2024-10-30)
PROC: 8E0WXBF Computer Assisted Procedure of Trunk Region, With Fluoroscopy (ICD-10-PCS; 2024-10-30)
PROC: 0SG10AJ Fusion of 2 or more Lumbar Vertebral Joints with Interbody Fusion Device, Posterior Approach, Anterior Column, Open Approach (ICD-10-PCS; principal; 2024-10-30 07:30)
DX: M47.26 Other spondylosis with radiculopathy, lumbar region (principal); D62 Acute posthemorrhagic anemia; E11.9 Type 2 diabetes mellitus without complications; M25.78 Osteophyte, vertebrae; M48.061 Spinal stenosis, lumbar region without neurogenic claudication; F90.9 Attention-deficit hyperactivity disorder, unspecified type; F41.9 Anxiety disorder, unspecified; M51.16 Intervertebral disc disorders with radiculopathy, lumbar region; Z79.84 Long term (current) use of oral hypoglycemic drugs; Z79.85 Long-term (current) use of injectable non-insulin antidiabetic drugs; Z79.899 Other long term (current) drug therapy; Z87.891 Personal history of nicotine dependence
CPT/HCPCS: 72100; 72131; 80048; 85025

== ENCOUNTER 2024-11-01 12:07 | Emergency (ER) | payer BC ==
--- NOTE | 2024-11-01 13:03 | ED ---
General Adult HPI - General Chief complaint: Recheck/Abnormal Lab/Rx Stated complaint: Post-op pain Time Seen by Provider: 11/01/24 12:26 Source: patient, RN notes reviewed Mode of arrival: ambulatory Limitations: no limitations - History of Present Illness Initial comments: 53-year-old male presents emergency department chief complaint of pain complicat ion. Patient states that his dog jumped on him and broke at the connector. He had lumbar surgery by Dr. Armas Did did contact on-call and vies come in for replacement. Patient has no other complaints at this time no fevers or chills no bleeding. - Related Data Home Medications Medication Instructions Recorded Confirmed Glimepiride [Amaryl] 4 mg PO HS 03/09/22 10/24/24 Cariprazine HCl [Vraylar] 3 mg PO HS 11/07/23 10/24/24 metFORMIN HCL 1,000 mg PO DAILY 11/07/23 10/24/24 Semaglutide [Ozempic] 2 mg SQ MO 02/06/24 10/24/24 Benztropine Mesylate [Cogentin] 0.5 mg PO HS 02/14/24 10/24/24 Vilazodone HCl 40 mg PO DAILY 02/14/24 10/24/24 Previous Rx's Medication Instructions Recorded Cyclobenzaprine [Flexeril] 5 mg PO BID PRN #30 11/01/24 HYDROcodone/APAP 7.5-325MG [[place] 1 each PO Q4HR PRN #42 tab 11/01/24 7.5] Naproxen [EC-Naprosyn] 500 mg PO Q12HR PRN #40 tab 11/01/24 Sennosides/Docusate Sodium 2 each PO DAILY PRN #30 tablet 11/01/24 [Senna-S 8.6-50 mg Tablet] cefaDROXiL [Duricef] 500 mg PO Q12HR 5 Days #10 cap 11/01/24 polyethylene glycoL 3350 [Miralax] 17 gm PO DAILY PRN #21 packet 11/01/24 Allergies Allergy/AdvReac Type Severity Reaction Status Date / Time No Known Allergies Allergy Verified 11/01/24 12:22 Review of Systems ROS Statement: Those systems with pertinent positive or pertinent negative responses have been documented in the HPI. ROS Other: All systems not noted in ROS Statement are negative. Past Medical History Past Medical History: Diabetes Mellitus Additional Past Medical History / Comment(s): pain clinic procedures, tremors- side effects of meds per pt. History of Any Multi-Drug Resistant Organisms: None Reported Past Surgical History: Back Surgery, Cholecystectomy Additional Past Surgical History / Comment(s): , L tear duct replaced, bilateral eyes lasik surgery for vision correction in 2018. epidural steriod for pain, carpal tunnel surgery, PAIN CLINIC PROCEDURES, COLONOSCOPY Past Anesthesia/Blood Transfusion Reactions: No Reported Reaction Past Psychological History: ADD/ADHD, Anxiety Smoking Status: Former smoker Past Alcohol Use History: Rare Past Drug Use History: None Reported - Past Family History Father Additional Family Medical History / Comment(s): Stents X2. Father had his AK in his mid 50s. Mother Family Medical History: No Reported History General Exam Limitations: no limitations General appearance: alert, in no apparent distress Head exam: Present: atraumatic, normocephalic, normal inspection Respiratory exam: Present: normal lung sounds bilaterally. Absent: respiratory distress, wheezes, rales, rhonchi, stridor Cardiovascular Exam: Present: regular rate, normal rhythm, normal heart sounds. Absent: systolic murmur, diastolic murmur, rubs, gallop, clicks GI/Abdominal exam: Present: soft, normal bowel sounds. Absent: distended, tenderness, guarding, rebound, rigid Back exam: Present: other (Lumbar incision noted, no erythema no drainage no bleeding, there is postsurgical drain sutured without disruption) Course Vital Signs 11/01/24 11/01/24 11/01/24 12:19 13:10 13:12 Temperature 98.8 F 98.2 F 98.2 F Pulse Rate 89 86 86 Respiratory 16 18 18 Rate Blood Pressure 109/74 111/76 111/76 O2 Sat by Pulse 98 99 99 Oximetry Medical Decision Making - Medical Decision Making Was pt. sent in by a medical professional or institution (, PA, TRAFFIC MAINTENANCE SUPERVISOR, urgent care, hospital, or [facility]...) When possible be specific @ -Surgeon Did you speak to anyone other than the patient for history (EMS, parent, family, police, friend...)? What history was obtained from this source @ -No Did you review nursing and triage notes (agree or disagree)? Why? @ -I reviewed and agree with nursing and triage notes Were old charts reviewed (outside hosp., previous admission, EMS record, old EKG, old radiological studies, urgent care reports/EKG's, [facility] records)? Report findings @ -No old charts were reviewed Differential Diagnosis (chest pain, altered mental status, abdominal pain women, abdominal pain men, vaginal bleeding, weakness, fever, dyspnea, syncope, headache, dizziness, GI bleed, back pain, seizure, CVA, palpatations, mental health, musculoskeletal)? @ -Postoperative device complication EKG interpreted by me (3pts min.). @ -None X-rays interpreted by me (1pt min.). @ -None done CT interpreted by me (1pt min.). @ -None done U/S interpreted by me (1pt. min.). @ -None done What testing was considered but not performed or refused? (CT, X-rays, U/S, labs)? Why? @ -None What meds were considered but not given or refused? Why? @ -None Did you discuss the management of the patient with other professionals (professionals i.e. , PA, TRAFFIC MAINTENANCE SUPERVISOR, lab, RT, psych nurse, aids social worker, security services specialist, teacher, adult parole officer, protective services case worker)? Give summary @ -No Was smoking cessation discussed for >3mins.? @ -No Was critical care preformed (if so, how long)? @ -No Were there social determinants of health that impacted care today? How? (Homelessness, low income, unemployed, alcoholism, drug addiction, transportation, low edu. Level, literacy, decrease access to med. care, [facility], rehab)? @ -No Was there de-escalation of care discussed even if they declined (Discuss DNR or withdrawal of care, Hospice)? DNR status @ -No What co-morbidities impacted this encounter? (DM, HTN, Smoking, COPD, CAD, Cancer, CVA, ARF, Chemo, Hep., AIDS, mental health diagnosis, sleep apnea, morbid obesity)? @ -None Was patient admitted / discharged? Hospital course, mention meds given and route, prescriptions, significant lab abnormalities, going to OR and other pe rtinent info. @ -[Discharged patient's drain was replaced without complication, patient will follow-up with orthopedic surgeon return for as discussed. Undiagnosed new problem with uncertain prognosis? @ -No Drug Therapy requiring intensive monitoring for toxicity (Heparin, Nitro, Insulin, Cardizem)? @ -No Were any procedures done? @ -No Diagnosis/symptom? @ -Postoperative device complication Acute, or Chronic, or Acute on Chronic? @ -Acute Uncomplicated (without systemic symptoms) or Complicated (systemic symptoms)? @ -Uncomplicated Side effects of treatment? @ -No Exacerbation, Progression, or Severe Exacerbation? @ -No Poses a threat to life or bodily function? How? (Chest pain, USA, AK, pneumonia, PE, COPD, DKA, ARF, appy, cholecystitis, CVA, Diverticulitis, Homicidal, Suicidal, threat to staff... and all critical care pts) @ -No Disposition Clinical Impression: Complication of device Disposition: HOME SELF-CARE Condition: Stable Additional Instructions: Please return to the Emergency Department if symptoms worsen or any other concerns. Is patient prescribed a controlled substance at d/c from ED?: No Referrals: Lele Guerin DO [Primary Care Provider] - 1-2 days Time of Disposition: 13:03
[2024-11-01 13:12] VITALS: BP 111/76; PULSE 86; RESP 18; TEMP 98.2
== END 2024-11-01 13:12 | disposition home or self-care (01) ==
LOC: EC 12:07
DX: T85.9XXA Unspecified complication of internal prosthetic device, implant and graft, initial encounter (principal); G89.18 Other acute postprocedural pain; Z87.891 Personal history of nicotine dependence; W54.1XXA Struck by dog, initial encounter
CPT/HCPCS: 99283

== ENCOUNTER 2024-11-23 19:51 | Observation (INO) | payer BC ==
[2024-11-23] MEDS ORDERED: DEXTROSE 50% SYRINGE 50 ML IVP PRN ×2 (20:30)
[2024-11-23 20:38] LABS: Glucose,Whole Blood 402 mg/dL (70-110)
[2024-11-23 20:58] LABS: Basophils # (A) 0.04 10*3/uL (0.00-0.10); Basophils % (A) 0.4 %; Eosinophils # (A) 0.02 10*3/uL (0.04-0.35); Eosinophils % (A) 0.2 %; HCT 40.5 % (39.6-50.0); HGB 14.0 g/dL (13.0-17.0); Lymphocytes # (A) 2.95 10*3/uL (0.90-5.00); Lymphocytes % (A) 25.9 %; MCH 30.7 pg (27.0-32.0); MCHC 34.6 g/dL (32.0-37.0); MCV 88.8 fL (80.0-97.0); Monocytes # (A) 1.15 10*3/uL (0.20-1.00); Monocytes % (A) 10.1 %; Neutrophils # (A) 7.14 10*3/uL (1.80-7.70); Neutrophils % (A) 62.5 %; Platelet Count 377 10*3/uL (140-440); RBC 4.56 10*6/uL (4.40-5.60); RDW 12.3 % (11.5-14.5); WBC 11.40 10*3/uL (4.50-10.00)
[2024-11-23] MEDS: INSULIN LISPRO (HumaLOG) 100 UNIT/ML 10 mL VL SQ SCH (21:00)
[2024-11-23 21:13] LABS: ALT 21 U/L (4-49); AST 16 U/L (17-59); African American GFR (CKD) >90 (>60 ml/min/1.73 sqM); Albumin 4.3 g/dL (3.5-5.0); Alkaline Phosphatase 109 U/L (38-126); Anion Gap 13 mmol/L; Blood Urea Nitrogen 15 mg/dL (9-20); Calcium 9.8 mg/dL (8.4-10.2); Carbon Dioxide 18 mmol/L (22-30); Chloride 106 mmol/L (98-107); Glucose 401 mg/dL (74-99); Non-African American GFR(CKD) >90 (>60 ml/min/1.73 sqM); Potassium 4.8 mmol/L (3.5-5.1); Sodium 137 mmol/L (137-145); Total Protein 7.0 g/dL (6.3-8.2)
[2024-11-23] MEDS ORDERED: NALOXONE 0.4 MG/ML 1 ML VIAL IV PRN (21:55)
--- NOTE | 2024-11-23 21:55 | ED ---
General Adult HPI - General Chief complaint: Back Pain/Injury Stated complaint: post back surgery; leg pain Time Seen by Provider: 11/23/24 20:00 Source: patient Mode of arrival: ambulatory Limitations: no limitations - History of Present Illness Initial comments: 54-year-old male who presents emergency department reporting left leg pain and b ack pain. Patient has history of L3-L5 laminectomy with fusion on October 30. Patient is a patient of Dr. Armas. Patient has had worsening leg pain. He has been on antibiotics and steroids. He had an MRI done at [facility] which found that he had a seroma. Dr. Armas sent him into the emergency department for surgery. Patient has had issues with hyperglycemia due to being on the steroids. He denies any fevers although he did get 2 recent rounds of antibiotics. He denies weakness in his lower extremity. No other alleviating, precipitating or modifying factors - Related Data Home Medications Medication Instructions Recorded Confirmed Glimepiride [Amaryl] 4 mg PO HS 03/09/22 10/24/24 Cariprazine HCl [Vraylar] 3 mg PO HS 11/07/23 10/24/24 metFORMIN HCL 1,000 mg PO DAILY 11/07/23 10/24/24 Semaglutide [Ozempic] 2 mg SQ MO 02/06/24 10/24/24 Benztropine Mesylate [Cogentin] 0.5 mg PO HS 02/14/24 10/24/24 Vilazodone HCl 40 mg PO DAILY 02/14/24 10/24/24 Previous Rx's Medication Instructions Recorded Cyclobenzaprine [Flexeril] 5 mg PO BID PRN #30 11/01/24 HYDROcodone/APAP 7.5-325MG [[place] 1 each PO Q4HR PRN #42 tab 11/01/24 7.5] Naproxen [EC-Naprosyn] 500 mg PO Q12HR PRN #40 tab 11/01/24 Sennosides/Docusate Sodium 2 each PO DAILY PRN #30 tablet 11/01/24 [Senna-S 8.6-50 mg Tablet] cefaDROXiL [Duricef] 500 mg PO Q12HR 5 Days #10 cap 11/01/24 polyethylene glycoL 3350 [Miralax] 17 gm PO DAILY PRN #21 packet 11/01/24 Allergies Allergy/AdvReac Type Severity Reaction Status Date / Time No Known Allergies Allergy Verified 11/23/24 20:00 Review of Systems ROS Statement: Those systems with pertinent positive or pertinent negative responses have been documented in the HPI. ROS Other: All systems not noted in ROS Statement are negative. Past Medical History Past Medical History: Diabetes Mellitus Additional Past Medical History / Comment(s): pain clinic procedures, tremors- side effects of meds per pt. History of Any Multi-Drug Resistant Organisms: None Reported Past Surgical History: Back Surgery, Cholecystectomy Additional Past Surgical History / Comment(s): , L tear duct replaced, bilateral eyes lasik surgery for vision correction in 2018. epidural steriod for pain, carpal tunnel surgery, PAIN CLINIC PROCEDURES, COLONOSCOPY Past Anesthesia/Blood Transfusion Reactions: No Reported Reaction Past Psychological History: ADD/ADHD, Anxiety Smoking Status: Former smoker Past Alcohol Use History: Rare Past Drug Use History: None Reported - Past Family History Father Additional Family Medical History / Comment(s): Stents X2. Father had his OR in his mid 50s. Mother Family Medical History: No Reported History General Exam Limitations: no limitations General appearance: alert, in no apparent distress Head exam: Present: atraumatic, normocephalic, normal inspection Eye exam: Present: normal appearance, PERRL, EOMI. Absent: scleral icterus, conjunctival injection, periorbital swelling ENT exam: Present: normal exam, mucous membranes moist Neck exam: Present: normal inspection. Absent: tenderness, meningismus, lymphadenopathy Respiratory exam: Present: normal lung sounds bilaterally. Absent: respiratory distress, wheezes, rales, rhonchi, stridor Cardiovascular Exam: Present: regular rate, normal rhythm, normal heart sounds. Absent: systolic murmur, diastolic murmur, rubs, gallop, clicks GI/Abdominal exam: Present: soft, normal bowel sounds. Absent: distended, tenderness, guarding, rebound, rigid Extremities exam: Present: normal inspection, full ROM, normal capillary refill. Absent: tenderness, pedal edema, joint swelling, calf tenderness Back exam: Present: normal inspection Neurological exam: Present: alert, oriented X3, CN II-XII intact Psychiatric exam: Present: normal affect, normal mood Skin exam: Present: warm, dry, intact, normal color. Absent: rash Course Vital Signs 11/23/24 11/23/24 19:57 22:23 Temperature 97.9 F 99.0 F Pulse Rate 116 H 100 Respiratory 18 20 Rate Blood Pressure 123/79 120/83 O2 Sat by Pulse 99 97 Oximetry Medical Decision Making - Medical Decision Making Was pt. sent in by a medical professional or institution (, PA, AIRCRAFT MOTOR MECHANIC, urgent care, hospital, or [place] [facility]...) When possible be specific @ -Patient was sent in by Dr. Armas Did you speak to anyone other than the patient for history (EMS, parent, family, police, friend...)? What history was obtained from this source @ -Spoke with the patient's for history Did you review nursing and triage notes (agree or disagree)? Why? @ -I reviewed and agree with nursing and triage notes Were old charts reviewed (outside hosp., previous admission, EMS record, old EKG, old radiological studies, urgent care reports/EKG's, [place] [facility] records)? Report findings @ -I reviewed the patient's operative report from October 30 Differential Diagnosis (chest pain, altered mental status, abdominal pain women, abdominal pain men, vaginal bleeding, weakness, fever, dyspnea, syncope, headache, dizziness, GI bleed, back pain, seizure, CVA, palpatations, mental health, musculoskeletal)? @ -Differential Back Pain: Strain, zoster, cauda equina syndrome, epidural abscess, vertebral osteomyelitis , discitis, fracture, subluxation, disc herniation, DJD, spinal stenosis, dissection, AAA, pancreatitis, peptic ulcer disease, pyelonephritis, kidney stone, this is not meant to be an all-inclusive list. EKG interpreted by me (3pts min.). @ -Yes which demonstrates sinus tachycardia with a rate of 113. MN interval 137. QRS 82. QTc of 370. No acute ST segment elevations or depressions X-rays interpreted by me (1pt min.). @ -None done CT interpreted by me (1pt min.). @ -None done U/S interpreted by me (1pt. min.). @ -None done What testing was considered but not performed or refused? (CT, X-rays, U/S, labs)? Why? @ -None What meds were considered but not given or refused? Why? @ -None Did you discuss the management of the patient with other professionals (professionals i.e. , PA, AIRCRAFT MOTOR MECHANIC, lab, RT, psych nurse, social work job titles, fare enforcement officer, teacher, helicopter officer, case repairer)? Give summary @ -Spoke with Dr. Armas who will admit the patient Was smoking cessation discussed for >3mins.? @ -No Was critical care preformed (if so, how long)? @ -No Were there social determinants of health that impacted care today? How? (Homelessness, low income, unemployed, alcoholism, drug addiction, transportation, low edu. Level, literacy, decrease access to med. care, [place] [facility], rehab)? @ -No Was there de-escalation of care discussed even if they declined (Discuss DNR or withdrawal of care, Hospice)? DNR status @ -No What co-morbidities impacted this encounter? (DM, HTN, Smoking, COPD, CAD, Cancer, CVA, ARF, Chemo, Hep., AIDS, mental health diagnosis, sleep apnea, morbid obesity)? @ -Chronic back pain Was patient admitted / discharged? Hospital course, mention meds given and route, prescriptions, significant lab abnormalities, going to OR and other pertinent info. @ -Upon arrival patient seen and evaluated in bed 29. Thorough history and physical exam was performed. Patient did have an MRI which demonstrated a seroma. He was sent into the hospital by Dr. garcia for surgery tomorrow. We did complete an EKG and laboratory studies. Pain medications and muscle relaxers ordered. Patient will be made n.p.o. at midnight for surgery tomorrow Undiagnosed new problem with uncertain prognosis? @ -No Drug Therapy requiring intensive monitoring for toxicity (Heparin, Nitro, Insulin, Cardizem)? @ -No Were any procedures done? @ -No Diagnosis/symptom? @ -Acute lumbar radiculopathy, seroma status post lumbar back laminectomy Acute, or Chronic, or Acute on Chronic? @ -Acute Uncomplicated (without systemic symptoms) or Complicated (systemic symptoms)? @ -Complicated Side effects of treatment? @ -No Exacerbation, Progression, or Severe Exacerbation? @ -No Poses a threat to life or bodily function? How? (Chest pain, USA, OR, pneumonia, PE, COPD, DKA, ARF, appy, cholecystitis, CVA, Diverticulitis, Homicidal, Suicidal, threat to staff... and all critical care pts) @ -No - Lab Data Result diagrams: 11/23/24 20:42 11/23/24 20:42 Lab Results 11/23/24 11/23/24 11/23/24 Range/Units 20:37 20:42 20:42 WBC 11.40 H (4.50-10.00) 10*3/uL RBC 4.56 (4.40-5.60) 10*6/uL Hgb 14.0 (13.0-17.0) g/dL Hct 40.5 (39.6-50.0) % MCV 88.8 (80.0-97.0) fL MCH 30.7 (27.0-32.0) pg MCHC 34.6 (32.0-37.0) g/dL Plt Count 377 (140-440) 10*3/uL MPV 10.7 (9.5-12.2) fL Immature Gran % (Auto) 0.9 % Neutrophils % 62.5 % Lymphocytes % 25.9 % Monocytes % 10.1 % Eosinophils % 0.2 % Basophils % 0.4 % Immature Gran # 0.10 H (0.00-0.04) 10*3/uL Neutrophils # 7.14 (1.80-7.70) 10*3/uL Lymphocytes # 2.95 (0.90-5.00) 10*3/uL Monocytes # 1.15 H (0.20-1.00) 10*3/uL Eosinophils # 0.02 L (0.04-0.35) 10*3/uL Basophils # 0.04 (0.00-0.10) 10*3/uL Sodium 137 (137-145) mmol/L Potassium 4.8 (3.5-5.1) mmol/L Chloride 106 (98-107) mmol/L Carbon Dioxide 18 L (22-30) mmol/L Anion Gap 13 mmol/L BUN 15 (9-20) mg/dL Creatinine 0.92 (0.66-1.25) mg/dL Est GFR (CKD-EPI)AfAm >90 (>60 ml/min/1.73 sqM) Est GFR (CKD-EPI)NonAf >90 (>60 ml/min/1.73 sqM) Glucose 401 H (74-99) mg/dL POC Glucose (mg/dL) 402 H (70-110) mg/dL POC Glu Cancer Genetics Assistant ID Calcium 9.8 (8.4-10.2) mg/dL Total Bilirubin 0.7 (0.2-1.3) mg/dL AST 16 L (17-59) U/L ALT 21 (4-49) U/L Alkaline Phosphatase 109 (38-126) U/L Total Protein 7.0 (6.3-8.2) g/dL Albumin 4.3 (3.5-5.0) g/dL Disposition Clinical Impression: Status post laminectomy, Lumbar back pain, Hyperglycemia Disposition: ADMITTED IP TO THIS [facility] Condition: Stable Is patient prescribed a controlled substance at d/c from ED?: No Time of Disposition: 21:55 Decision to Admit Reason: Admit from EC Decision Date: 11/23/24 Decision Time: 21:55
[2024-11-23] MEDS: SODIUM CHLORIDE 0.9% 1,000 ML IV SCH (22:08)
[2024-11-23 22:11] LABS: Glucose,Whole Blood 342 mg/dL (70-110)
[2024-11-23] MEDS: MORPHINE SULFATE 4 MG/ML SYRINGE IVP PRN (22:34)
[2024-11-24 00:18] LABS: Glucose,Whole Blood 229 mg/dL (70-110)
[2024-11-24 04:45] LABS: Basophils # (A) 0.05 10*3/uL (0.00-0.10); Basophils % (A) 0.5 %; Eosinophils # (A) 0.11 10*3/uL (0.04-0.35); Eosinophils % (A) 1.0 %; HCT 38.2 % (39.6-50.0); HGB 13.0 g/dL (13.0-17.0); Lymphocytes # (A) 4.57 10*3/uL (0.90-5.00); Lymphocytes % (A) 42.3 %; MCH 30.2 pg (27.0-32.0); MCHC 34.0 g/dL (32.0-37.0); MCV 88.8 fL (80.0-97.0); Monocytes # (A) 0.96 10*3/uL (0.20-1.00); Monocytes % (A) 8.9 %; Neutrophils # (A) 4.98 10*3/uL (1.80-7.70); Neutrophils % (A) 46.1 %; Platelet Count 300 10*3/uL (140-440); RBC 4.30 10*6/uL (4.40-5.60); RDW 12.4 % (11.5-14.5); WBC 10.80 10*3/uL (4.50-10.00)
[2024-11-24 05:00] LABS: African American GFR (CKD) >90 (>60 ml/min/1.73 sqM); Anion Gap 9 mmol/L; Blood Urea Nitrogen 13 mg/dL (9-20); Calcium 8.8 mg/dL (8.4-10.2); Carbon Dioxide 22 mmol/L (22-30); Chloride 106 mmol/L (98-107); Glucose 199 mg/dL (74-99); Non-African American GFR(CKD) >90 (>60 ml/min/1.73 sqM); Potassium 4.2 mmol/L (3.5-5.1); Sodium 137 mmol/L (137-145)
[2024-11-24 07:23] LABS: Glucose,Whole Blood 208 mg/dL (70-110)
[2024-11-24] MEDS ORDERED: SENNOSIDES 8.6 MG TAB PO PRN (10:26)
--- NOTE | 2024-11-24 10:30 | P.HPOR ---
History of Present Illness H&P Date: 11/24/24 Chief Complaint: Left lower extremity pain and low back pain Patient is a 54-year-old male who presented to the emergency department last night [facility] due to left lower extremity pain and back pain. Patient does have a history of L3-L5 posterior lateral decompression and fusion surgery performed by Dr. Armas on 10/30/2024. Since then he has had follow- up appointments in the office with Dr. Armas and has been placed on oral antibiotics. Patient did have MRI lumbar spine performed at [facility] which did show a seroma. Patient denies any fevers or chills at this time. He says he does endorse numbness and tingling from the left knee extending down to the left ankle. Patient says he has been on steroids as well since surgery. Denies any significant weakness in lower extremities. Denies any other issues at this time. Past Medical History Past Medical History: Diabetes Mellitus Additional Past Medical History / Comment(s): pain clinic procedures, tremors- side effects of meds per pt. History of Any Multi-Drug Resistant Organisms: None Reported Past Surgical History: Back Surgery, Cholecystectomy Additional Past Surgical History / Comment(s): , L tear duct replaced, bilateral eyes lasik surgery for vision correction in 2018. epidural steriod for pain, carpal tunnel surgery, PAIN CLINIC PROCEDURES, COLONOSCOPY Past Anesthesia/Blood Transfusion Reactions: No Reported Reaction Past Psychological History: ADD/ADHD, Anxiety Smoking Status: Former smoker Past Alcohol Use History: Rare Past Drug Use History: None Reported - Past Family History Father Additional Family Medical History / Comment(s): Stents X2. Father had his DC in his mid 50s. Mother Family Medical History: No Reported History Medications and Allergies Home Medications Medication Instructions Recorded Confirmed Type Glimepiride [Amaryl] 4 mg PO HS 03/09/22 11/24/24 History Cariprazine HCl [Vraylar] 3 mg PO HS 11/07/23 11/24/24 History metFORMIN HCL 1,000 mg PO DAILY 11/07/23 11/24/24 History Semaglutide [Ozempic] 2 mg SQ MO 02/06/24 11/24/24 History Benztropine Mesylate [Cogentin] 0.5 mg PO HS 02/14/24 11/24/24 History Vilazodone HCl 40 mg PO DAILY 02/14/24 11/24/24 History Cyclobenzaprine [Flexeril] 5 mg PO BID PRN #30 11/01/24 11/24/24 Rx Ketorolac [Toradol] 10 mg PO Q6H PRN 11/24/24 11/24/24 History predniSONE [Deltasone] 20 mg PO BID-W/MEALS 11/24/24 11/24/24 History Allergies Allergy/AdvReac Type Severity Reaction Status Date / Time No Known Allergies Allergy Verified 11/24/24 07:01 Physical Examination Incision is present at midline over the lumbar spine. Negative for any drainage. Some erythema present. Patient does have some decrease sensation from L3-L5 dermatomes in the left lower extremity. Sensation is equal, symmetric, bilateral intact throughout the rest of the lower extremities on exam. There is some generalized tenderness to palpation near the incision on the spine. Nontender throughout rest of exam. Patient does have good range of motion throughout bilateral upper and lower extremities on exam. 4/5 in left lower extremity on exam. 4+/5 in all other major motor groups. Radial pulse intact, 2+ bilaterally. Cap refill under 2 seconds in digits of upper extremities. Negative Homans bilaterally. No clonus bilaterally. Negative hop bilaterally. Results - Labs Labs: Abnormal Lab Results - Last 24 Hours (Table) 11/23/24 11/23/24 11/23/24 Range/Units 20:37 20:42 20:42 WBC 11.40 H (4.50-10.00) 10*3/uL RBC (4.40-5.60) 10*6/uL Hct (39.6-50.0) % Immature Gran # 0.10 H (0.00-0.04) 10*3/uL Monocytes # 1.15 H (0.20-1.00) 10*3/uL Eosinophils # 0.02 L (0.04-0.35) 10*3/uL Carbon Dioxide 18 L (22-30) mmol/L Glucose 401 H (74-99) mg/dL POC Glucose (mg/dL) 402 H (70-110) mg/dL Hemoglobin A1c (<=6.0) % AST 16 L (17-59) U/L 11/23/24 11/24/24 11/24/24 Range/Units 22:09 00:16 04:04 WBC (4.50-10.00) 10*3/uL RBC (4.40-5.60) 10*6/uL Hct (39.6-50.0) % Immature Gran # (0.00-0.04) 10*3/uL Monocytes # (0.20-1.00) 10*3/uL Eosinophils # (0.04-0.35) 10*3/uL Carbon Dioxide (22-30) mmol/L Glucose (74-99) mg/dL POC Glucose (mg/dL) 342 H 229 H (70-110) mg/dL Hemoglobin A1c 7.3 H (<=6.0) % AST (17-59) U/L 11/24/24 11/24/24 11/24/24 Range/Units 04:04 04:04 07:12 WBC 10.80 H (4.50-10.00) 10*3/uL RBC 4.30 L (4.40-5.60) 10*6/uL Hct 38.2 L (39.6-50.0) % Immature Gran # 0.13 H (0.00-0.04) 10*3/uL Monocytes # (0.20-1.00) 10*3/uL Eosinophils # (0.04-0.35) 10*3/uL Carbon Dioxide (22-30) mmol/L Glucose 199 H (74-99) mg/dL POC Glucose (mg/dL) 208 H (70-110) mg/dL Hemoglobin A1c (<=6.0) % AST (17-59) U/L H & H 11/23/24 11/24/24 Range/Units 20:42 04:04 Hgb 14.0 13.0 (13.0-17.0) g/dL Hct 40.5 38.2 L (39.6-50.0) % Result Diagrams: 11/24/24 04:04 11/24/24 04:04 Assessment and Plan Assessment: 1. Left lower extremity radiculopathy; low back pain; status post L3-L5 posterior lateral decompression fusion Plan: 1. Left lower extremity radiculopathy; low back pain; status post L3-L5 posterior lateral decompression fusion -patient stable at bedside this morning. N.p.o. now. Surgery scheduled for later today, lumbar wound incision and drainage and irrigation debridement. Pain medication as needed. Weight-bear as tolerated with walker as needed. We will continue to follow patient during stay in hospital 2. Appreciate medical management 3. Pain management - flexeril 4. DVT prophylaxis -mechanical 5. GI prophylaxis - senna 6. PT/OT -weight-bear as tolerated with walker as needed 7. Encourage incentive spirometer use Time with Patient: Less than 30
[2024-11-24] MEDS: IV FLUID CONTINUATION 1,000 ML IV ONE (11:32)
--- NOTE | 2024-11-24 11:49 | P.PN ---
Progress Note - Text Progress Note Date: 11/24/24 Clinical Summary Kristian Sanchez, a patient 2 weeks status post revision L3-5 decompression fusion, presents to the emergency department with worsening low back pain and increasing left lower extremity pain and numbness from knee to foot. Despite initial improvement with steroids and medications, his symptoms have plateaued and worsened. MRI imaging reveals a fluid collection around the surgical wound bed. Given intractable pain and imaging findings, the decision was made to proceed with incision and drainage with irrigation and debridement. Chief Complaint Worsening low back pain and left lower extremity pain with numbness 2 weeks foll owing revision L3-5 decompression fusion surgery. History Patient underwent revision L3-5 decompression fusion 2 weeks ago. Initially did well post-operatively but developed increasing low back pain and left lower extremity symptoms approximately 1 week after surgery. Was started on Prednisone, Medrol dose pack, Gabapentin, and Flexeril which provided initial improvement, but patient has stopped progressing in recovery. reports patient appears to be getting worse rather than better. Current pain level is 7/10 with left lower extremity pain and numbness from knee down to foot described as a "roller coaster" pattern. Patient reports nothing touches the pain. Patient has diabetes with recent blood sugar elevations (400 last night, 208 this morning) likely related to steroid use. Clinical Findings Current pain level reported as 7/10. Numbness in LLE knee to foot in L3-5 distribution No weakness 5/5 LE bl SILT otherwise UE and LE Neg pathological reflexes INcision is well healed without EEE. No drainage Left lower extremity numbness from knee down to foot. Surgical incision site examined. NO EEE. Imaging MRI performed at [facility] demonstrated a fluid collection around the wound bed at the surgical site. Diagnosis 1. Postoperative fluid collection/seroma following lumbar spine fusion 2. Postoperative pain syndrome 3. Left lower extremity radiculopathy 4. Diabetes mellitus with hyperglycemia Plan/Recommendations Incision and drainage with irrigation and debridement of lumbar spine Placement of surgical drain Obtain intraoperative cultures Inpatient admission for overnight observation Intravenous antibiotics during hospitalization Transition to oral antibiotics for outpatient treatment Discontinue steroid medications to improve diabetic control Blood sugar monitoring and management Use sutures for wound closure to promote better healing Follow-up appointment scheduled for Sunday, the (may be adjusted based on length of stay) Patient counseled on risks and benefits of procedure including bleeding, infection, damage to surrounding tissue, risk of reoperation, and anesthetic risks including Patient consented to procedure and willing to assume all surgical risks
[2024-11-24 11:52] LABS: Glucose,Whole Blood 131 mg/dL (70-110)
[2024-11-24] MEDS: LACTATED RINGERS 1,000 ML BAG IV STA (11:53)
[2024-11-24] MEDS: HYDROCORTISONE SUCCINATE 100 MG/2 ML VIAL IV STA (11:56)
[2024-11-24] MEDS: MIDAZOLAM 2 MG/2 ML VIAL IV STA (11:58)
[2024-11-24] MEDS: ONDANSETRON 4 MG/2 ML VIAL IVP STA (12:03)
[2024-11-24] MEDS ORDERED: HYDROmorphone (PF) 1 MG/ML ONE (12:25)
[2024-11-24] MEDS ORDERED: TRANEXAMIC 1,000 MG/100ML-NACL PREMIX BAG ONE (12:25)
[2024-11-24] MEDS ORDERED: ROCURONIUM 10 MG/ML (5 ML VIAL) IV ONE (12:25)
[2024-11-24] MEDS ORDERED: LIDOCAINE 1% INJ 10MG/ML (20 ML MDV) ONE (12:25)
[2024-11-24] MEDS ORDERED: LIDOCAINE 4% LTA KIT (4 ML) TOPICAL ONE (12:25)
[2024-11-24] MEDS ORDERED: fentaNYL (PF) 50 MCG/ML 2 ML AMP ONE (12:25)
[2024-11-24] MEDS ORDERED: SUCCINYLCHOLINE CHLORIDE 200 MG/10 ML VIAL IV ONE (12:25)
[2024-11-24] MEDS ORDERED: PROPOFOL 10 MG/ML 20 ML VIAL IV ONE (12:25)
[2024-11-24] MEDS: IV FLUID CONTINUATION 1,000 ML with ceFAZolin 2,000 MG IV ONE ×3 (12:30)
[2024-11-24] MEDS: VANCOMYCIN 1,000 MG VIAL MISCELLANE ONE (13:23)
[2024-11-24] MEDS: TOBRAMYCIN SULFATE 1.2 GM VIAL MISCELLANE ONE (13:24)
[2024-11-24] MEDS: GENTAMICIN 40 MG/ML 2 ML VIAL IRRIGATION ONE (13:25)
[2024-11-24] MEDS: ceFAZolin 1,000 MG VIAL IRRIGATION ONE (13:26)
[2024-11-24] MEDS: GENTAMICIN 80 MG in SODIUM CHLORIDE 0.9% IRRIGATIO 3,000 ML IRRIGATION ONE ×3 (13:28)
[2024-11-24] MEDS: SODIUM CHLORIDE 0.9% IRRIGATION ONE ×3 (13:29)
[2024-11-24] MEDS: CEFAZOLIN IRRIGATION ONE ×3 (13:29)
--- NOTE | 2024-11-24 14:01 | P.OP ---
Date of Procedure: 11/24/24 Preoperative Diagnosis: 1. LUMBAR POST OP SEROMA 2. LE PAIN 3. LOW BACK PAIN Postoperative Diagnosis: 1. LUMBAR POST OP SEROMA 2. LE PAIN 3. LOW BACK PAIN Procedure(s) Performed: 1. LUMBAR INCISION AND DRAINAGE WITH IRRIGATION AND EXCISIONAL DEBRIDMENT SKIN, SOFT TISSUE, MUSCLE BONE USING THE FOLLOWING -SKIN KNIFE USED TO REMOVED SKIN AND NECROTIC ST -CURETTE USED TO SCRAPE AND DEBRIDE MUSCLE -RONGURE USED TO DEBRIDE BONE AND SOFT TISSUES 2. COMPLEX 3 LAYERED CLOSURE LUMBAR SPINE 25 CM X 15 CM X 10 CM Implants: NONE Anesthesia: GETA Surgeon: Jose David Armas Is Manager #1: Dalton Vidal (WAS PRESENT AND ASSISTED WITH ALL ASEPCTS O THE CASE) Estimated Blood Loss (ml): 150 IV fluids (ml): 1,000 Urine output (ml): 0 Pathology: other (X2 LUMBAR SPINE DEEP SEROMA) Condition: stable Disposition: PACU Indications for Procedure: Kristian Sanchez, a patient 2 weeks status post revision L3-5 decompression fusion, presents to the emergency department with worsening low back pain and increasing left lower extremity pain and numbness from knee to foot. Despite initial improvement with steroids and medications, his symptoms have plateaued and worsened. MRI imaging reveals a fluid collection around the surgical wound bed. Given intractable pain and imaging findings, the decision was made to proceed with incision and drainage with irrigation and debridement. Description of Procedure: LUMBAR INCISION AND DRAINAGE WITH IRRIGATION AND DEBRIDEMENT The patient was seen and examined in the preoperative area. All preoperative protocols were followed. Informed consent was obtained, risks and benefits of the procedure were discussed at length. Risks including bleeding infection damage to the surrounding tissue and risk of reoperation were discussed with the patient. Risk of anesthesia up to and including was discussed with the patient. These are outlined in the risk review. They were willing to accept these risks and all of the risks of surgery. The patient was given a weight- based dose of antibiotics in the form of 2 g Ancef with a weight-based dose of vancomycin. The patient was seen and evaluated by the anesthesia team who deemed them fit for surgery. The site was marked, the patient was willing to proceed with the procedure. The patient was transferred to the operative suite by the Department of anesthesia. They were then drifted off to sleep by the department anesthesia and GETA was performed. The patient tolerated this well. Arreola catheter was placed by nursing staff, atraumatically. Once confirmation of lines and ventilation the patient was transferred to a prone William table very carefully. All bony prominences including wrists, elbows, axilla, chest, hips, and thighs, and feet were padded very well. Special attention was paid to the genitalia and these were padded accordingly. SCDs were placed on bilateral lower extremities and were connected. Arms were well padded and placed on arm boards up and out in the 90/90 position. Once in position, again we confirmed good ventilation capabilities and that lines were running appropriately. The patient's thoracolumbar spine was then exposed. 1010s were placed outlining the incision site. Standard alcohol was used to clean the incision site and allowed to dry. C-arm was used to biomark the patient and confirm level for incision which was marked with a skin marker. Operative briefing was performed with all teams and everyone in agreement to proceed. The patient was then prepped and draped in a normal sterile fashion. Timeout was then performed and all parties were in agreement with the procedure to be performed. Midline skin incision was then made over the previously bio marked area and dissection taken down to the fascia which was identified. The area which was open on the skin was ellipticized with a skin knife and removed. The tract was then removed using a skin knife and Bovie. Middling fasciotomy was done and old sutures removed. Seroma was present deep to fascia. No purulence noted. We then dissected out over the hardware laterally to expose the rods, screws and PL gutters. We investigated the wound bed and the dura as well as cleaned any scar formation off the dura and area. . Further bone was removed with heena and kerrison, laminectomy and facetectomy at this area was done to widen the kym ctomy from previous surgeries. Ronguer was used to remove bone and soft tissue. We then irrigated the area with NSS. Further debridement was then done with curettes and Cande to remove any bony fragments. We then once again irrigated with Betadine solution and 1 L. This was allowed to stand for 1 minute as well. We then irrigated this out with normal sterile saline and continued with debridement. Irrisept 1 L was then used again and let stand for 1 minute was then followed by normal sterile saline washout. We then ended with 1 L of Betadine solution which was then let stand for 1 minute and irrigated out completely. We then irrigated with 3 L of an Ancef solution along with 3 L of gentamicin solution along with 6 L of normal sterile saline well debriding skin soft tissue and bone in this area removing any phlegmonous type tissue or bony fragments. Once irrigation and debridement was completed we inspected the area and explored the fusion. There were good bony fragments and bone formation posterior lateral. There was no leak of CSF. There are no issues noted. Hemostasis was achieved. We then used Tisseal to seal off the area followed by surgicel and tisseal again for a pressure dressing on the dura. Another Valsalva was done and there was no continued leak. 2 g of vancomycin powder was placed deep in the wound along with stimulan beads with abx. Once these were placed we proceeded with layered closure first in the deep fascia with #1 PDS in a simple fashion. This was then over sewn with 0 PDS stratafix, unidirectional. Deep subcu tissues were closed with 0 Vicryl superficial subcu tissues closed with 2-0 Vicryl and skin was closed with 2-0 nylon in a simple fashion. wound edges approximated very well. The drain was then sewn in place with a stitch. The drain was connected and had good suction and inflow. The wound was then cleaned and dressed sterilely with Adaptic 4 x 4s ABDs and foam tape. The patient was transferred back to their hospital bed atraumatically. Drain continued to hold suction and was in a good position. The patient was then awakened and extubated by the department of anesthesia having tolerated the procedure very well with no complications. They were transferred to the postoperative care unit in stable condition.
[2024-11-24] MEDS ORDERED: HYDROcodone/APAP 5-325MG 1 EACH TAB PO PRN (14:11)
[2024-11-24] MEDS ORDERED: SENNOSIDES-DOCUSATE SODIUM 1 EACH TAB PO PRN (14:11)
[2024-11-24] MEDS ORDERED: HYDROcodone/APAP 10-325MG 1 EACH TAB PO PRN (14:11)
[2024-11-24] MEDS ORDERED: ONDANSETRON 4 MG/2 ML VIAL IVP PRN (14:11)
[2024-11-24] MEDS: HYDROmorphone 0.5 MG/0.5 ML SYRINGE IVP PRN (14:25)
[2024-11-24 14:58] LABS: Glucose,Whole Blood 200 mg/dL (70-110)
[2024-11-24] MEDS: INSULIN LISPRO (HumaLOG) 100 UNIT/ML 10 mL VL SQ ONE (15:26)
[2024-11-24 17:30] LABS: Glucose,Whole Blood 269 mg/dL (70-110)
[2024-11-24] MEDS: HYDROmorphone 1 MG/ML 1 ML SYRINGE IVP PRN (18:07)
[2024-11-24] MEDS: ACETAMINOPHEN TAB 325 MG TAB PO SCH (18:27)
[2024-11-24 20:38] LABS: Glucose,Whole Blood 276 mg/dL (70-110)
[2024-11-25 07:08] LABS: Glucose,Whole Blood 187 mg/dL (70-110)
[2024-11-25 08:29] LABS: Basophils # (A) 0.06 X 10*3/uL (0.00-0.10); Basophils % (A) 0.5 %; Eosinophils # (A) 0.12 X 10*3/uL (0.04-0.35); Eosinophils % (A) 1.1 %; HCT 37.6 % (39.6-50.0); HGB 12.3 g/dL (13.0-17.0); Immature Grans, Automated 1.10 %; Lymphocytes # (A) 4.31 X 10*3/uL (0.90-5.00); Lymphocytes % (A) 38.3 %; MCH 30.1 pg (27.0-32.0); MCHC 32.7 g/dL (32.0-37.0); MCV 92.2 FL (80.0-97.0); Monocytes # (A) 1.03 X 10*3/uL (0.20-1.00); Monocytes % (A) 9.2 %; NRBC Per 100 WBC 0 X 10*3/uL (0.00-0.01); Neutrophils # (A) 5.60 X 10*3/uL (1.80-7.70); Neutrophils % (A) 49.8 %; Platelet Count 298 X 10*3/uL (140-440); RBC 4.08 X 10*6/uL (4.40-5.60); RDW 12.8 % (11.5-14.5); WBC 11.24 X 10*3/uL (4.50-10.00)
[2024-11-25 08:33] LABS: Anion Gap 10.40 mmol/L (4.00-12.00); BUN/Creat Ratio 17.71 Ratio (12.00-20.00); Blood Urea Nitrogen 12.4 mg/dL (9.0-27.0); Calcium 8.6 mg/dL (8.7-10.3); Carbon Dioxide 21.6 mmol/L (21.6-31.8); Chloride 103 mmol/L (96-109); Glucose 181 mg/dL (70-110); Potassium 4.2 mmol/L (3.5-5.5); Sodium 135 mmol/L (135-145)
[2024-11-25] MEDS ORDERED: HYDROcodone/APAP 10-325MG 1 EACH TAB PO PRN (09:21)
[2024-11-25] MEDS: HYDROcodone/APAP 10-325MG 1 EACH TAB PO PRN (09:41)
--- NOTE | 2024-11-25 10:16 | P.PN ---
Subjective Progress Note Date: 11/25/24 Principal diagnosis: 1. LUMBAR POST OP SEROMA 2. LE PAIN 3. LOW BACK PAIN Patient seen and examined this morning. Patient is resting comfortably in bed. He does report that his pain is managed on current regimen. Informed patient that IV Dilaudid will be discontinued after 24 hours and that medications will be adjusted. Encourage patient to take the oral pain medication for optimal plan for discharge home. Surgical dressing to the lumbar spine is clean dry and intact, Hemovac is present. Patient does state that he has been ambulatory the restroom and tolerating activity well. No acute concerns. Objective - Vital Signs Vital signs: Vital Signs Temp 98.4 F 11/25/24 07:36 Pulse 95 11/25/24 07:36 Resp 16 11/25/24 07:36 BP 109/76 11/25/24 07:36 Pulse Ox 97 11/25/24 07:36 FiO2 Intake & Output 11/24/24 11/25/24 11/25/24 18:59 06:59 18:59 Intake Total 1493 1190 Output Total 150 Balance 1343 1190 Intake: IV 953 Intake, IV Titration 950 Amount Sodium Chloride 0.9% 1, 900 000 ml @ 75 mls/hr IV . [id number] TIM Rx#:[id number] ceFAZolin 2 gm In Sodium 50 Chloride 0.9% 50 ml @ 100 mls/hr IVPB Q8HR TIM Rx# :[id number] Oral 540 240 Output: Estimated Blood Loss 150 Other: Voiding Method Toilet Toilet # Voids 3 - Exam Physical Examination General: The patient is awake and alert, in no acute distress. Skin: Skin is warm and dry with no obvious rashes or lesions. Surgical incisio n to the lumbar spine, surgical dressing is clean dry and intact with Hemovac present. Eye: Pupils are equal, round and reactive to light, extra-ocular movements are intact; there is normal conjunctiva bilaterally. Neck: The neck is supple, there is no tenderness and ROM intact. Respiratory: Respirations are non-labored. Gastrointestinal: Soft, non-distended, non-tender abdomen. Back: There is no tenderness to palpation in the midline, paralumbar, parathoracic or buttocks region. There is no obvious deformity. Musculoskeletal: ROM limited secondary to pain and stiffness from surgical procedure. Right: Shoulder abduction 5/5, elbow flexors 5/5, wrist dorsiflexors 5/5. finger abductor 5/5, electric trucker 5/5, hip flexor 5/5, knee flexor 5/5, ankle dorsiflexor 5/5, ankle plantarflexion 5/5 and extensor hallucis 5/5 Left: Shoulder abduction 5/5, elbow flexors 5/5, wrist dorsiflexors 5/5. finger abductor 5/5, electric trucker 5/5, hip flexor 5/5, knee flexor 5/5, ankle dorsiflexor 5/5, ankle plantarflexion 5/5 and extensor hallucis 5/5. Neurological: CN 2-12 intact. There are no obvious motor or sensory deficits. Movement and coordination equal and intact. Sensory exam to light touch intact C5-T1 and intact from L2-S1. Reflexes 2/4 in bilateral upper and lower extremities. Negative Hoffmans, babinski, and clonus signs. Psychiatric: Cooperative, appropriate mood & affect, normal judgment. - Labs CBC & Chem 7: 11/25/24 04:59 11/25/24 04:59 Labs: Abnormal Lab Results - Last 24 Hours (Table) 11/24/24 11/24/24 11/24/24 Range/Units 11:41 14:57 17:28 WBC (4.50-10.00) X 10*3/uL RBC (4.40-5.60) X 10*6/uL Hgb (13.0-17.0) g/dL Hct (39.6-50.0) % Immature Gran # (0.00-0.04) X 10*3/uL Monocytes # (0.20-1.00) X 10*3/uL Glucose (70-110) mg/dL POC Glucose (mg/dL) 131 H 200 H 269 H (70-110) mg/dL 11/24/24 11/25/24 11/25/24 Range/Units 20:36 04:59 04:59 WBC 11.24 H (4.50-10.00) X 10*3/uL RBC 4.08 L (4.40-5.60) X 10*6/uL Hgb 12.3 L (13.0-17.0) g/dL Hct 37.6 L (39.6-50.0) % Immature Gran # 0.12 H (0.00-0.04) X 10*3/uL Monocytes # 1.03 H (0.20-1.00) X 10*3/uL Glucose 181 H (70-110) mg/dL POC Glucose (mg/dL) 276 H (70-110) mg/dL 11/25/24 Range/Units 07:06 WBC (4.50-10.00) X 10*3/uL RBC (4.40-5.60) X 10*6/uL Hgb (13.0-17.0) g/dL Hct (39.6-50.0) % Immature Gran # (0.00-0.04) X 10*3/uL Monocytes # (0.20-1.00) X 10*3/uL Glucose (70-110) mg/dL POC Glucose (mg/dL) 187 H (70-110) mg/dL Microbiology - Last 24 Hours (Table) 11/24/24 15:10 Gram Stain - Preliminary Other - Other 11/24/24 15:04 Gram Stain - Preliminary Other - Other Assessment and Plan Assessment: Postop day 1: Irrigation and debridement of the lumbar wound Plan: -Appreciate senior microsoft consultant and team management. -Activity: Ambulate QID, OOB all meals, up and about, limit lifting bending twisting to less than 5 lbs. Use walker or cane if needed for stability. -Daily PT/OT, increase ambulation strength and balance. -Brace when up and about, not needed in bed or chair -Pain control: Adequate at this time -Meds: reviewed -GI ppx: senna, Miralax -DC [place] when up and about, bedside commode if needed -DVT PPX: Aspirin 81mg daily -Hygiene: Maintain incision clean and dry. May change dressing as needed, please document in notes if performed. Meticulous cleaning after BMs away from the incision site -Drains: Maintain for now. Continue to monitor and record output q shift. -Encourage IS 10x/hr -Dispo: Anticipate discharge home tomorrow 11/26/2024. *I reviewed and discussed this case with my attending Dr. Armas, whom has reviewed this chart and films and is in agreement with assessment and plan of care as outlined above. I have personally seen and examined the patient, performed the documentation and the assessment and plan as written. Number of minutes spent on the visit: 20m.
[2024-11-25] MEDS: PANTOPRAZOLE 40 MG/10 ML VIAL IVP SCH (10:28)
[2024-11-25] MEDS: metFORMIN 500 MG TAB PO SCH (10:28)
--- NOTE | 2024-11-25 10:37 | P.CONS ---
History of Present Illness - Reason for Consult Consult date: 11/24/24 Medical management Requesting physician: Jose David Armas - Chief Complaint Low back and lower extremity pain, status post recent revision L3-5 decompr - History of Present Illness This is a 54-year-old gentleman with recent revision 10/30/2024, L3-5 decompression fusion with complaints of worsening low back and left lower extremity pain accompanied by left knee to foot numbness, admitted with lumbar postop seroma status post I&D. Tolerated procedure well. Reports pain controlled with IV Dilaudid for pain management, transitioning to oral. Reports only having incisional pain with no numbness. Denies nausea vomiting or diarrhea. denies BM or passing flatus. Denies chest pain, palpitations or shortness of breath. Afebrile. WBC 11.24, hemoglobin 12.3, platelets 298. Electrolytes and renal function stable. Hemoglobin A1c 7.3, blood sugars elevated, trending down, currently in the 180s. Ambulated with PT in hallway, tolerated exertion well. Denies lightheadedness, dizziness or focal deficits. Denies chest pain, palpitations or shortness of breath. Review of Systems ROS Statement: Those systems with pertinent positive or pertinent negative responses have been documented in the HPI. ROS Other: All systems not noted in ROS Statement are negative. Constitutional: Denied any fever or chills. Cardio vascular: denied any chest pain, palpitations Gastrointestinal denied any nausea vomiting Pulmonary: Denied any shortness of breath cough Past Medical History Past Medical History: Diabetes Mellitus Additional Past Medical History / Comment(s): pain clinic procedures, tremors- side effects of meds per pt. History of Any Multi-Drug Resistant Organisms: None Reported Past Surgical History: Back Surgery, Cholecystectomy Additional Past Surgical History / Comment(s): , L tear duct replaced, bilateral eyes lasik surgery for vision correction in 2018. epidural steriod for pain, ca rpal tunnel surgery, PAIN CLINIC PROCEDURES, COLONOSCOPY Past Anesthesia/Blood Transfusion Reactions: No Reported Reaction Past Psychological History: ADD/ADHD, Anxiety Smoking Status: Former smoker Past Alcohol Use History: Rare Past Drug Use History: None Reported - Past Family History Father Additional Family Medical History / Comment(s): Stents X2. Father had his ID in his mid 50s. Mother Family Medical History: No Reported History Medications and Allergies Home Medications and Allergies Comment(s): VITAL SIGNS: [Reviewed] GENERAL: Pleasant 53-year-old male lying in bed, alert and oriented x 3, no acute distress HEENT: Normocephalic, atraumatic ,conjunctivae normal. eyes normal. mmm. NECK: Supple, no JVD. CARDIOVASCULAR: S1, S2 regular.. No murmur RESPIRATION: Unlabored, equal air entry, clear to auscultation. ABDOMEN: Soft, nondistended, nontender . No guarding. no masses palpable. Bowel sounds heard. LEGS: No edema. no swelling, no calf tenderness, peripheral pulses intact NERVOUS SYSTEM: Cranial N 2-12 grossly normal. Moves all 4 limbs. No focal deficits. Sensation grossly intact. Skin: Warm and dry, no rash. Surgical dressing clean dry and intact, Hemovac present. Home Medications Medication Instructions Recorded Confirmed Type Glimepiride [Amaryl] 4 mg PO HS 03/09/22 11/24/24 History Cariprazine HCl [Vraylar] 3 mg PO HS 11/07/23 11/24/24 History RX: metFORMIN HCL 1,000 mg PO DAILY 11/07/23 11/24/24 History Semaglutide [Ozempic] 2 mg SQ MO 02/06/24 11/24/24 History Benztropine Mesylate [Cogentin] 0.5 mg PO HS 02/14/24 11/24/24 History RX: Vilazodone HCl 40 mg PO DAILY 02/14/24 11/24/24 History Cyclobenzaprine [Flexeril] 5 mg PO BID PRN #30 11/01/24 11/24/24 Rx Ketorolac [Toradol] 10 mg PO Q6H PRN 11/24/24 11/24/24 History predniSONE [Deltasone] 20 mg PO BID-W/MEALS 11/24/24 11/24/24 History Allergies Allergy/AdvReac Type Severity Reaction Status Date / Time No Known Allergies Allergy Verified 11/24/24 11:31 Physical Exam Vitals: Vital Signs Temp Pulse Pulse Pulse Resp BP Pulse Ox 11/25/24 09:51 95 16 11/25/24 07:36 98.4 F 95 16 109/76 97 11/25/24 01:26 98.6 F 91 16 101/73 97 11/24/24 19:42 98.4 F 98 16 105/70 95 11/24/24 17:47 102 H 114/81 11/24/24 17:17 93 113/81 11/24/24 16:47 105 H 112/83 11/24/24 16:32 109 H 115/82 11/24/24 16:18 121 H 111/74 11/24/24 16:03 101 H 124/81 11/24/24 15:47 97.4 F L 108 H 17 142/93 96 11/24/24 15:23 86 16 133/92 95 11/24/24 15:08 84 16 132/90 96 11/24/24 14:53 92 18 126/91 96 11/24/24 14:38 90 16 122/86 97 11/24/24 14:23 92 16 128/87 96 11/24/24 14:08 97.1 F L 95 18 127/81 98 11/24/24 12:08 93 16 117/86 96 11/24/24 11:35 97.5 F L 90 18 122/96 98 Intake and Output 11/24/24 11/25/24 11/25/24 22:59 06:59 14:59 Intake Total 540 1190 Output Total 100 Balance 540 1190 -100 Intake: Intake, IV Titration 950 Amount Sodium Chloride 0.9% 1, 900 000 ml @ 75 mls/hr IV . [id number] TIM Rx#:[id number] ceFAZolin 2 gm In Sodium 50 Chloride 0.9% 50 ml @ 100 mls/hr IVPB Q8HR TIM Rx# :[id number] Oral 540 240 Output: Drainage 100 Lower Back 100 Other: Voiding Method Toilet Toilet # Voids 3 PHYSICAL EXAM: VITAL SIGNS: [Reviewed] GENERAL: Pleasant, 54-year-old male, alert and oriented x 3, sitting up in chair, no acute distress HEENT: Normocephalic, atraumatic ,conjunctivae normal. eyes normal. MMM. NECK:Supple, No JVD. No thyroid enlargement. No LNs CARDIOVASCULAR: S1, S2 regular.. No murmur RESPIRATION: Unlabored, equal air entry, clear to auscultation. ABDOMEN: Soft, bloated, nontender . No guarding. no masses palpable. +BS. LEGS: No edema. no swelling NERVOUS SYSTEM: Cranial N 2-12 grossly normal. Moves all 4 limbs.No focal deficits. Strength and sensation grossly intact.. Skin: no lesions, no rash. Surgical dressing on back clean,dry, hemovac present with serosanguineous drainage. Results CBC & Chem 7: 11/25/24 04:59 11/25/24 04:59 Labs: Abnormal Lab Results - Last 24 Hours (Table) 11/24/24 11/24/24 11/24/24 Range/Units 11:41 14:57 17:28 WBC (4.50-10.00) X 10*3/uL RBC (4.40-5.60) X 10*6/uL Hgb (13.0-17.0) g/dL Hct (39.6-50.0) % Immature Gran # (0.00-0.04) X 10*3/uL Monocytes # (0.20-1.00) X 10*3/uL Glucose (70-110) mg/dL POC Glucose (mg/dL) 131 H 200 H 269 H (70-110) mg/dL 11/24/24 11/25/24 11/25/24 Range/Units 20:36 04:59 04:59 WBC 11.24 H (4.50-10.00) X 10*3/uL RBC 4.08 L (4.40-5.60) X 10*6/uL Hgb 12.3 L (13.0-17.0) g/dL Hct 37.6 L (39.6-50.0) % Immature Gran # 0.12 H (0.00-0.04) X 10*3/uL Monocytes # 1.03 H (0.20-1.00) X 10*3/uL Glucose 181 H (70-110) mg/dL POC Glucose (mg/dL) 276 H (70-110) mg/dL 11/25/24 Range/Units 07:06 WBC (4.50-10.00) X 10*3/uL RBC (4.40-5.60) X 10*6/uL Hgb (13.0-17.0) g/dL Hct (39.6-50.0) % Immature Gran # (0.00-0.04) X 10*3/uL Monocytes # (0.20-1.00) X 10*3/uL Glucose (70-110) mg/dL POC Glucose (mg/dL) 187 H (70-110) mg/dL Microbiology - Last 24 Hours (Table) 11/24/24 15:10 Gram Stain - Preliminary Other - Other 11/24/24 15:04 Gram Stain - Preliminary Other - Other Assessment and Plan Assessment: Low back and left lower lower extremity pain with numbness, lumbar postop seroma, status post I&D in a patient status post recent revision 10/30/24 L3-5 decompression fusion Diabetes mellitus, hemoglobin A1c 7.3, further diabetic recommendations, teaching outpatient in clinic with PCP Anxiety ADD, ADHD Former nicotine dependence Plan: Continue on current medication regime ,monitoring and symptomatic treatment. Pain management and DVT prophylaxis as per primary. PT. aggressive pulmonary toileting with incentive spirometer reinforced. Home meds have been reviewed, and resumed accordingly. Tight glycemic control with NovoLog sliding scale in place with additional low-dose Lantus. discharge planning in progress for tomorrow as per orthopedic surgery. Thank you for the consult. The impression and plan of care has been dictated as directed. :Truong performed H&P and seen/examined patient 11/24/2024. I performed a history and examination of this patient, discussed the same with the dictator. I agree with the dictator's note ,documented as a scribe. Any additional findings or plans will be noted. Time with Patient: Greater than 30
[2024-11-25] MEDS: MAGNESIUM HYDROXIDE 2,400 MG/30 ML CUP PO PRN (11:25)
[2024-11-25 12:08] LABS: Glucose,Whole Blood 214 mg/dL (70-110)
[2024-11-25] MEDS: INSULIN GLARGINE (LANTUS) 100 UNIT/ML SYR SQ SCH (12:13)
--- NOTE | 2024-11-25 15:59 | P.PN ---
Subjective Progress Note Date: 11/25/24 Patient seen today postoperative evacuation of seroma he has a large dressing applied to his lumbar back he has no complaint particular complaints today he denies any fever. He denies any chest pain. His sugars are improved. Objective - Vital Signs Vital signs: Vital Signs Temp 98.0 F 11/25/24 13:23 Pulse 86 11/25/24 13:23 Resp 16 11/25/24 13:23 BP 116/80 11/25/24 13:23 Pulse Ox 99 11/25/24 13:23 FiO2 Intake & Output 11/24/24 11/25/24 11/25/24 18:59 06:59 18:59 Intake Total 1493 1190 Output Total 150 190 Balance 1343 1190 -190 Intake: IV 953 Intake, IV Titration 950 Amount Sodium Chloride 0.9% 1, 900 000 ml @ 75 mls/hr IV . [id number] TIM Rx#:[id number] ceFAZolin 2 gm In Sodium 50 Chloride 0.9% 50 ml @ 100 mls/hr IVPB Q8HR TIM Rx# :[id number] Oral 540 240 Output: Drainage 190 Lower Back 190 Estimated Blood Loss 150 Other: Voiding Method Toilet Toilet Toilet # Voids 3 - Exam VITAL SIGNS: [Reviewed] GENERAL: Pleasant 53-year-old male lying in bed, alert and oriented x 3, no acute distress HEENT: Normocephalic, atraumatic ,conjunctivae normal. eyes normal. mmm. NECK: Supple, no JVD. CARDIOVASCULAR: S1, S2 regular.. No murmur RESPIRATION: Unlabored, equal air entry, clear to auscultation. ABDOMEN: Soft, nondistended, nontender . No guarding. no masses palpable. Bowel sounds heard. LEGS: No edema. no swelling, no calf tenderness, peripheral pulses intact NERVOUS SYSTEM: Cranial N 2-12 grossly normal. Moves all 4 limbs. No focal deficits. Sensation grossly intact. Skin: Warm and dry, no rash. Surgical dressing clean dry and intact, Hemovac present. - Labs CBC & Chem 7: 11/25/24 04:59 11/25/24 04:59 Labs: Abnormal Lab Results - Last 24 Hours (Table) 11/24/24 11/24/24 11/25/24 Range/Units 17:28 20:36 04:59 WBC 11.24 H (4.50-10.00) X 10*3/uL RBC 4.08 L (4.40-5.60) X 10*6/uL Hgb 12.3 L (13.0-17.0) g/dL Hct 37.6 L (39.6-50.0) % Immature Gran # 0.12 H (0.00-0.04) X 10*3/uL Monocytes # 1.03 H (0.20-1.00) X 10*3/uL Glucose (70-110) mg/dL POC Glucose (mg/dL) 269 H 276 H (70-110) mg/dL 11/25/24 11/25/24 11/25/24 Range/Units 04:59 07:06 12:07 WBC (4.50-10.00) X 10*3/uL RBC (4.40-5.60) X 10*6/uL Hgb (13.0-17.0) g/dL Hct (39.6-50.0) % Immature Gran # (0.00-0.04) X 10*3/uL Monocytes # (0.20-1.00) X 10*3/uL Glucose 181 H (70-110) mg/dL POC Glucose (mg/dL) 187 H 214 H (70-110) mg/dL Microbiology - Last 24 Hours (Table) 11/24/24 15:10 Gram Stain - Preliminary Other - Other 11/24/24 15:04 Gram Stain - Preliminary Other - Other Assessment and Plan Assessment: Low back and left lower lower extremity pain with numbness, lumbar postop seroma, status post I&D in a patient status post recent revision 10/30/24 L3-5 decompression fusion Diabetes mellitus, hemoglobin A1c 7.3, further diabetic recommendations, teaching outpatient in clinic with PCP Anxiety ADD, ADHD Former nicotine dependence Plan: Continue on current medication regime ,monitoring and symptomatic treatment. Pain management and DVT prophylaxis as per primary. PT. aggressive pulmonary toileting with incentive spirometer reinforced. Home meds have been reviewed, and resumed accordingly. Tight glycemic control with NovoLog sliding scale in place with additional low-dose Lantus. discharge planning in progress for tomorrow as per orthopedic surgery. Thank you for the consult. The impression and plan of care has been dictated as directed. :Truong performed H&P and seen/examined patient 11/24/2024. I performed a history and examination of this patient, discussed the same with the dictator. I agree with the dictator's note ,documented as a scribe. Any additional findings or plans will be noted.
[2024-11-25] MEDS: HYDROmorphone 0.5 MG/0.5 ML SYRINGE IVP PRN (16:55)
[2024-11-25 17:41] LABS: Glucose,Whole Blood 236 mg/dL (70-110)
[2024-11-25 20:19] LABS: Glucose,Whole Blood 223 mg/dL (70-110)
[2024-11-25] MEDS: GLIMEPIRIDE 4 MG TAB PO SCH (20:31)
[2024-11-26 07:03] LABS: Glucose,Whole Blood 173 mg/dL (70-110)
[2024-11-26] MEDS: SENNOSIDES-DOCUSATE SODIUM 1 EACH TAB PO SCH (08:24)
[2024-11-26] MEDS: CYCLOBENZAPRINE 5 MG TAB PO PRN (08:34)
--- NOTE | 2024-11-26 10:25 | P.PN ---
Subjective Progress Note Date: 11/26/24 Principal diagnosis: 1. LUMBAR POST OP SEROMA 2. LE PAIN 3. LOW BACK PAIN Patient seen and examined this morning. Patient is resting comfortably in bed. He does report that his pain is managed on current regimen. Surgical dressing to the lumbar spine is clean dry and intact, Hemovac is present with 100ml output documented overnight. Spouse at bedside. Discussed that he ay be able to be discharged home tomorrow. He states he has had improvement of his lower extremity radiculopathy since the procedure. He has been ambulating within room without difficulty No acute concerns. Objective - Vital Signs Vital signs: Vital Signs Temp 97.5 F L 11/26/24 07:31 Pulse 95 11/26/24 07:31 Resp 16 11/26/24 07:31 BP 115/80 11/26/24 07:31 Pulse Ox 100 11/26/24 01:02 FiO2 Intake & Output 11/25/24 11/26/24 11/26/24 18:59 06:59 18:59 Intake Total 820 Output Total 190 100 Balance -190 820 -100 Intake: Oral 820 Output: Drainage 190 100 Lower Back 190 100 Other: Voiding Method Toilet Toilet - Exam Physical Examination General: The patient is awake and alert, in no acute distress. Skin: Skin is warm and dry with no obvious rashes or lesions. Surgical incision to the lumbar spine, surgical dressing is clean dry and intact with Hemovac present with 100ml output overnight. Eye: Pupils are equal, round and reactive to light, extra-ocular movements are intact; there is normal conjunctiva bilaterally. Neck: The neck is supple, there is no tenderness and ROM intact. Respiratory: Respirations are non-labored. Gastrointestinal: Soft, non-distended, non-tender abdomen. Back: There is no tenderness to palpation in the midline, paralumbar, parathoracic or buttocks region. There is no obvious deformity. Musculoskeletal: ROM limited secondary to pain and stiffness from surgical procedure. Right: Shoulder abduction 5/5, elbow flexors 5/5, wrist dorsiflexors 5/5. finger abductor 5/5, third rigger 5/5, hip flexor 5/5, knee flexor 5/5, ankle dorsiflexor 5/5, ankle plantarflexion 5/5 and extensor hallucis 5/5 Left: Shoulder abduction 5/5, elbow flexors 5/5, wrist dorsiflexors 5/5. finger abductor 5/5, third rigger 5/5, hip flexor 5/5, knee flexor 5/5, ankle dorsiflexor 5/5, ankle plantarflexion 5/5 and extensor hallucis 5/5. Neurological: CN 2-12 intact. There are no obvious motor or sensory deficits. Movement and coordination equal and intact. Sensory exam to light touch intact C5-T1 and intact from L2-S1. Reflexes 2/4 in bilateral upper and lower extremities. Negative Hoffmans, babinski, and clonus signs. Psychiatric: Cooperative, appropriate mood & affect, normal judgment. - Labs CBC & Chem 7: 11/25/24 04:59 11/25/24 04:59 Labs: Abnormal Lab Results - Last 24 Hours (Table) 11/25/24 11/25/24 11/25/24 Range/Units 12:07 17:39 20:15 POC Glucose (mg/dL) 214 H 236 H 223 H (70-110) mg/dL 11/26/24 Range/Units 07:02 POC Glucose (mg/dL) 173 H (70-110) mg/dL Microbiology - Last 24 Hours (Table) 11/24/24 15:10 Gram Stain - Preliminary Other - Other Wound Culture - Preliminary 11/24/24 15:04 Gram Stain - Preliminary Other - Other Wound Culture - Preliminary Assessment and Plan Assessment: Postop day 2: Irrigation and debridement of the lumbar wound Plan: -Appreciate production support consultant and team management. -Activity: Ambulate QID, OOB all meals, up and about, limit lifting bending twisting to less than 5 lbs. Use walker or cane if needed for stability. -Daily PT/OT, increase ambulation strength and balance. -Brace when up and about, not needed in bed or chair -Pain control: Adequate at this time -Meds: reviewed -GI ppx: senna, Miralax -DVT PPX: Scds/TEDS -Hygiene: Maintain incision clean and dry. May change dressing as needed, please document in notes if performed. Meticulous cleaning after BMs away from the incision site -Drains: Maintain for now. Continue to monitor and record output q shift. -Encourage IS 10x/hr -Dispo: Anticipate discharge home tomorrow 11/27/2024. *I reviewed and discussed this case with my attending Dr. Armas, whom has reviewed this chart and films and is in agreement with assessment and plan of care as outlined above. I have personally seen and examined the patient, performed the documentation and the assessment and plan as written. Number of minutes spent on the visit: 20m.
[2024-11-26 12:28] LABS: Glucose,Whole Blood 161 mg/dL (70-110)
--- NOTE | 2024-11-26 15:43 | P.PN ---
Subjective Progress Note Date: 11/26/24 11/24/2024 this is a 54-year-old gentleman with recent revision 10/30/2024, L3-5 decompression fusion with complaints of worsening low back and left lower extremity pain accompanied by left knee to foot numbness, admitted with lumbar postop seroma status post I&D. Tolerated procedure well. Reports pain co ntrolled with IV Dilaudid for pain management, transitioning to oral. Reports only having incisional pain with no numbness. Denies nausea vomiting or diarrhea. denies BM or passing flatus. Denies chest pain, palpitations or shortness of breath. Afebrile. WBC 11.24, hemoglobin 12.3, platelets 298. Electrolytes and renal function stable. Hemoglobin A1c 7.3, blood sugars elevated, trending down, currently in the 180s. Ambulated with PT in hallway, tolerated exertion well. Denies lightheadedness, dizziness or focal deficits. Denies chest pain, palpitations or shortness of breath. 11/25/2024 Patient seen today postoperative evacuation of seroma he has a large dressing applied to his lumbar back he has no complaint particular complaints today he denies any fever. He denies any chest pain. His sugars are improved. 11/26/2024. Ambulating in room, reports pain significantly improved, denies numbness. 100 mL out of Hemovac reported in the last 24 hrs. Afebrile. Preliminary Gram stain/wound culture reporting no organisms seen/no growth after 24 hours .ambulating in room, tolerating exertion well. Denies chest pain, palpitations or shortness of breath. Maintaining O2 sats in the high 90s to 100% on room air. Blood sugars controlled. Tolerating diet with no nausea vomiting or diarrhea. Reports passing minimal flatus, no bowel movement. Objective - Vital Signs Vital signs: Vital Signs Temp 98.6 F 11/26/24 13:27 Pulse 100 11/26/24 13:27 Resp 17 11/26/24 13:27 BP 115/76 11/26/24 13:27 Pulse Ox 97 11/26/24 13:27 FiO2 Intake & Output 11/25/24 11/26/24 11/26/24 18:59 06:59 18:59 Intake Total 820 Output Total 190 100 Balance -190 820 -100 Intake: Oral 820 Output: Drainage 190 100 Lower Back 190 100 Other: Voiding Method Toilet Toilet Toilet - Exam VITAL SIGNS: [Reviewed] GENERAL: Pleasant, 54-year-old male, alert and oriented x 3, sitting up in chair, no acute distress HEENT: Normocephalic, atraumatic ,conjunctivae normal. eyes normal. MMM. NECK:Supple, No JVD. CARDIOVASCULAR: S1, S2 regular. No murmur RESPIRATION: Unlabored, equal air entry, clear to auscultation. ABDOMEN: Soft, mildly less bloated, nontender . No guarding. no masses palpable. +BS. LEGS: No edema. no swelling NERVOUS SYSTEM: Cranial N 2-12 grossly normal. Moves all 4 limbs.No focal deficits. Strength and sensation grossly intact.. Skin: no lesions, no rash. Surgical dressing on back clean ,dry, hemovac present with serosanguineous drainage. - Labs CBC & Chem 7: 11/25/24 04:59 11/25/24 04:59 Labs: Abnormal Lab Results - Last 24 Hours (Table) 11/25/24 11/25/24 11/26/24 Range/Units 17:39 20:15 07:02 POC Glucose (mg/dL) 236 H 223 H 173 H (70-110) mg/dL 11/26/24 Range/Units 12:27 POC Glucose (mg/dL) 161 H (70-110) mg/dL Microbiology - Last 24 Hours (Table) 11/24/24 15:10 Gram Stain - Preliminary Other - Other Wound Culture - Preliminary 11/24/24 15:04 Gram Stain - Preliminary Other - Other Wound Culture - Preliminary Assessment and Plan Assessment: Low back and left lower lower extremity pain with numbness, lumbar postop seroma, status post I&D in a patient status post recent revision 10/30/24 L3-5 decompression fusion Diabetes mellitus, hemoglobin A1c 7.3- improving, further diabetic recommendat ions, teaching outpatient in clinic with PCP Anxiety ADD, ADHD Former nicotine dependence Plan: Continue on current medication regime ,monitoring and symptomatic treatment. MiraLAX ordered. maintain aggressive pulmonary toileting with incentive spirometer reinforced. tight glycemic control.pain management/DVT prophylaxis as per primary .wound cultures finalizing.discharge planning in progress for tomorrow as per orthopedic surgery. The impression and plan of care has been dictated as directed. : I performed a history and examination of this patient, discussed the same with the dictator. I agree with the dictator's note ,documented as a scribe. Any additional findings or plans will be noted.
[2024-11-26 17:07] LABS: Glucose,Whole Blood 237 mg/dL (70-110)
[2024-11-26 20:52] LABS: Glucose,Whole Blood 160 mg/dL (70-110)
[2024-11-27 07:06] LABS: Glucose,Whole Blood 158 mg/dL (70-110)
[2024-11-27 07:54] VITALS: BP 108/74; PULSE 93; RESP 20; TEMP 97.5
--- NOTE | 2024-11-27 09:16 | P.PN ---
Subjective Progress Note Date: 11/27/24 Principal diagnosis: 1. LUMBAR POST OP SEROMA 2. LE PAIN 3. LOW BACK PAIN Patient seen and examined this morning. Patient is ambulatory within hallway with spouse. Patient states he is tolerating activity well. Patient does report that the numbness previous to the procedure has returned to the left lower extremity from the knee to the ankle. Patient does report that he is not currently on his gabapentin that he normally takes at home. Surgical incision to the lumbar spine, edges are well-approximated with sutures intact. No active drainage. Hemovac has been removed with 0 mL output documented overnight. Discharge instructions have been discussed. No acute concerns. Objective - Vital Signs Vital signs: Vital Signs Temp 97.5 F L 11/27/24 07:53 Pulse 93 11/27/24 07:53 Resp 20 11/27/24 07:53 BP 108/74 11/27/24 07:53 Pulse Ox 97 11/27/24 07:53 FiO2 Intake & Output 11/26/24 11/27/24 11/27/24 18:59 06:59 18:59 Output Total 140 0 Balance -140 0 Output: Drainage 140 0 Lower Back 140 0 Other: Voiding Method Toilet Toilet # Voids 1 # Bowel Movements 1 - Exam Physical Examination General: The patient is awake and alert, in no acute distress. Skin: Skin is warm and dry with no obvious rashes or lesions. Surgical incision to the lumbar spine, edges are well-approximated with sutures intact. No active drainage. Hemovac drain has been removed with 0 mL output overnight. New surgical dressing applied. Eye: Pupils are equal, round and reactive to light, extra-ocular movements are intact; there is normal conjunctiva bilaterally. Neck: The neck is supple, there is no tenderness and ROM intact. Respiratory: Respirations are non-labored. Gastrointestinal: Soft, non-distended, non-tender abdomen. Back: There is no tenderness to palpation in the midline, paralumbar, parathoracic or buttocks region. There is no obvious deformity. Musculoskeletal: ROM limited secondary to pain and stiffness from surgical procedure. Right: Shoulder abduction 5/5, elbow flexors 5/5, wrist dorsiflexors 5/5. finger abductor 5/5, director of services 5/5, hip flexor 5/5, knee flexor 5/5, ankle dorsiflexor 5/5, ankle plantarflexion 5/5 and extensor hallucis 5/5 Left: Shoulder abduction 5/5, elbow flexors 5/5, wrist dorsiflexors 5/5 . finger abductor 5/5, director of services 5/5, hip flexor 5/5, knee flexor 5/5, ankle dorsiflexor 5/5, ankle plantarflexion 5/5 and extensor hallucis 5/5. Neurological: CN 2-12 intact. There are no obvious motor or sensory deficits. Movement and coordination equal and intact. Sensory exam to light touch intact C5-T1 and intact from L2-S1. Reflexes 2/4 in bilateral upper and lower extremities. Negative Hoffmans, babinski, and clonus signs. Psychiatric: Cooperative, appropriate mood & affect, normal judgment. - Labs CBC & Chem 7: 11/25/24 04:59 11/25/24 04:59 Labs: Abnormal Lab Results - Last 24 Hours (Table) 11/26/24 11/26/24 11/26/24 Range/Units 12:27 17:06 20:50 POC Glucose (mg/dL) 161 H 237 H 160 H (70-110) mg/dL 11/27/24 Range/Units 07:04 POC Glucose (mg/dL) 158 H (70-110) mg/dL Microbiology - Last 24 Hours (Table) 11/24/24 15:04 Anaerobic Culture - Preliminary Other - Other 11/24/24 15:10 Anaerobic Culture - Preliminary Other - Other 11/24/24 15:10 Gram Stain - Final Other - Other Wound Culture - Final 11/24/24 15:04 Gram Stain - Final Other - Other Wound Culture - Final Assessment and Plan Assessment: Postop day 3: Irrigation and debridement of the lumbar wound Plan: -Appreciate continuous improvement consultant and team management. -Activity: Ambulate QID, OOB all meals, up and about, limit lifting bending twisting to less than 5 lbs. Use walker or cane if needed for stability. -Daily PT/OT, increase ambulation strength and balance. -Brace when up and about, not needed in bed or chair -Pain control: Adequate at this time -Meds: reviewed -GI ppx: senna, Miralax -DVT PPX: Scds/TEDS -Hygiene: Maintain incision clean and dry. May change dressing as needed, please document in notes if performed. Meticulous cleaning after BMs away from the incision site -Encourage IS 10x/hr -Dispo: Anticipate discharge home later today. *I reviewed and discussed this case with my attending Dr. Armas, whom has reviewed this chart and films and is in agreement with assessment and plan of care as outlined above. I have personally seen and examined the patient, performed the documentation and the assessment and plan as written. Number of minutes spent on the visit: 20m.
--- NOTE | 2024-11-27 09:20 | P.DS ---
Providers Date of admission: 11/23/24 21:57 Expected date of discharge: 11/27/24 Attending physician: Jose David Armas DO Consults: 11/23/24 21:55 Consult Physician Routine Consulting Provider: Lele Guerin Reason/Comments: hypergylcemia Do you want consulting provider notified?: Yes Primary care physician: Lele Guerin [facility] Course: Hospital Course: The patient was evaluated preoperatively and found to have the diagnosis of seroma of the lumbar spine. They underwent appropriate preoperative care and were willing to undergo the intended procedure. They underwent a successful irrigation and debridement of the lumbar wound, were recovered appropriately and sent to the floor. While on the floor they worked with physical therapy, occupational therapy and nursing to enhance their recovery experience. Their pain was well controlled through their stay and they were started on appropriate medications, DVT ppx modalities, activity and dietary needs. Daily labs were monitored closely, and transfusions were only used when necessary. Medicine as well as other consulting services have made their input and have helped with our team approach and multidisciplinary care. PT milestones have been met and passed and they have made the recommendation of home for this patient and treating providers agree with this care path. The patient will be discharged home with appropriate medications, instructions and follow-up information and in stable condition. Patient Condition at Discharge: Good Plan - Discharge Summary Discharge Rx Participant: No New Discharge Prescriptions: New Sennosides-Docusate Sodium [Senokot-S] 2 each PO DAILY tab cefaDROXiL [Duricef] 500 mg PO Q12HR 5 Days #10 cap Cyclobenzaprine [Flexeril] 5 mg PO TID PRN #40 tablet PRN Reason: Muscle Spasm HYDROcodone/APAP 10-325MG [[place] 10-325] 1 tab PO Q4-6H PRN #40 tab PRN Reason: Pain Continue Semaglutide [Ozempic] 2 mg SQ MO Ketorolac [Toradol] 10 mg PO Q6H PRN PRN Reason: Pain Glimepiride [Amaryl] 4 mg PO HS metFORMIN HCL 1,000 mg PO DAILY Cariprazine HCl [Vraylar] 3 mg PO HS Benztropine Mesylate [Cogentin] 0.5 mg PO HS Vilazodone HCl 40 mg PO DAILY Cyclobenzaprine [Flexeril] 5 mg PO BID PRN #30 PRN Reason: Muscle Spasm predniSONE [Deltasone] 20 mg PO BID-W/MEALS Discharge Medication List Glimepiride [Amaryl] 4 mg PO HS 03/09/22 [History] Cariprazine HCl [Vraylar] 3 mg PO HS 11/07/23 [History] metFORMIN HCL 1,000 mg PO DAILY 11/07/23 [History] Semaglutide [Ozempic] 2 mg SQ MO 02/06/24 [History] Benztropine Mesylate [Cogentin] 0.5 mg PO HS 02/14/24 [History] Vilazodone HCl 40 mg PO DAILY 02/14/24 [History] Cyclobenzaprine [Flexeril] 5 mg PO BID PRN #30 11/01/24 [Rx] Ketorolac [Toradol] 10 mg PO Q6H PRN 11/24/24 [History] predniSONE [Deltasone] 20 mg PO BID-W/MEALS 11/24/24 [History] Cyclobenzaprine [Flexeril] 5 mg PO TID PRN #40 tablet 11/26/24 [Rx] HYDROcodone/APAP 10-325MG [[place] 10-325] 1 tab PO Q4-6H PRN #40 tab 11/26/24 [Rx] Sennosides-Docusate Sodium [Senokot-S] 2 each PO DAILY tab 11/26/24 [Rx] cefaDROXiL [Duricef] 500 mg PO Q12HR 5 Days #10 cap 11/26/24 [Rx] Follow up Appointment(s)/Referral(s): Lele Guerin DO [Primary Care Provider] - 1 Week Jose David Armas DO [Doctor of Osteopathic Medicine] - 2 Weeks (cancel sunday appt, schedule for 2 wks) Activity/Diet/Wound Care/Special Instructions: Spine Discharge and Recovery Instructions Date of Surgery: 11/24/2024 Diagnosis: Lumbar seroma Procedure: Irrigation and debridement of the lumbar wound Medications: See medication list All medication refills should be obtained through your primary care doctor or your clinic spine surgeon. Please discuss prescription refills at your follow up appointment. Do not call the hospital for medication refills. Activity: Encourage ambulation with assist of walker, Up and about 6-8x daily PT/OT daily work on balance, strength and mobility Up in chair with all meals Shower daily Brace: Use brace when up and about, do not wear in bed or shower Dressing: Leave your dressing in place for a total of 3 days post operatively. Then you may remove your dressing and leave open to air. Keep the area clean and if not able to keep area clean, then cover with sterile gauze and tape. Showering: You may shower 3 days after your procedure allowing soap and water to run over incision. Do not scrub. Do not soak. Blot dry. Follow up: Please confirm a follow up appointment with your surgeon 2 weeks post operatively. Please make an appointment to follow up with your PCP in 1-2 weeks after surgery for evaluation '3 phase, 3-week plan' POST OP WEEKS 1-3 1. Lifting/carrying/pushing/pulling limited to less than 5 pounds. 2. Do not sit for longer than 15 minutes at one time. Get up and walk around. Prolonged sitting is NOT advised. If you lay down, see if you can tolerate laying down on you front (belly side) 3. Walk for periods of 15 minutes = 1 mile but no longer; do it multiple times times each day. 4. Ice your low back after activity. POST OP WEEKS 3-6 1. Lifting limited to less than 20 pounds. 2. Do not sit for longer than 30 minutes at a time. Frequently change positions. Use a sit-to stand workstation or take frequent breaks from sitting if you have returned to work. 3. Walk for 30 minutes each day. If possible, do these three or more times a day POST OP WEEKS 6+ At your 6-week appointment we will give you a physical therapy referral to focus on a core stabilization and strengthening program. You should also work on leg & buttock strengthening, hamstring & quadriceps stretching, and continue a low impact aerobic activity program such as swimming, walking, or riding a stationary bicycle. During the initial 6 weeks after your surgery, you are at the highest risk of re-injuring your spine. You should generally avoid BLT's (bending, lifting and twisting combination motions) and follow the above guidelines to reduce the chance of reinjury. You can anticipate post op appointments in our office at approximately 3 weeks and 6 weeks after your surgery. INCISION CARE: If your incision is not draining you do NOT need to cover it with a dressing. Keep your incision clean, dry and intact. In most cases, we apply skin glue, alice or sutures to the incision at the time of surgery. This will be like a crust or have the appearance of a scab and will fall off in time on its own. The stitches or alice need to be removed at 3 weeks post op appointment. You may begin to shower 3 days after surgery (this allows the glue to sousa well). However, please avoid scrubbing the incision site or peeling off any of the skin glue. This will ensure optimal healing of your incision. Also, during this time avoid soaking the incision area in water - this includes swimming pools, hot tubs or baths. No ointments, lotions or oils on the incision until your surgeon allows. Leave alice, sutures or glue in place. Neurological dysfunction that comes on suddenly can also be a sign of a stroke. Below some common symptoms of a stroke are listed: B - balance difficulty such as sudden onset walking or leaning to one side - NEW E - eye problem such as sudden double vision or trouble seeing on one side - NEW F - Facial weakness or numbness on one side - NEW A - Arm or leg weakness or numbness on one side - NEW S - Slurred speech or difficulty with word finding - NEW T - Time is BRAIN! Call 911 as soon as you recognize these symptoms Diet: Consume a regular diet rich in vegetables and lean protein such as chicken or fish. You should consume in a ratio of approximately 20% fats|40% carbohydrates|40%protein. Vegetables, sweet potatoes, brown rice or quinoa are examples of good carbohydrates. Chips, white bread, cookies and sweets/sugar are examples of bad carbohydrates. Limit your bad carbs, go wild with good carbs. "Life's Simple 7" Guidelines as per [place] [employer] These will help you reclaim your life after surgery and brazer helper induction in your recovery, keeping in mind your restrictions. (1) Get Active. Physical activity can help people lose weight, control high blood pressure and cholesterol, feel emotionally better, and sleep better. (2) Control Cholesterol. Avoid a diet high in saturated fat, trans fat, & cholesterol. Limit whole milk & cream, ice cream, butter, egg yolks, processed meats (like sausage and hot dogs), and fatty meats. Choose healthy foods that are low in saturated fat, trans fat and cholesterol which include: Fruits and vegetables, fiber rich grain products (like whole grain pasta and brown rice), lean meat such as chicken, fish, nuts, seeds, and legumes. (3) Eat Better. Eat small portions. Shop at the grocery with a list and do not stray from it. Tips for a healthy diet include: Limit sodium intake to less than 1500mg daily, avoid prepackaged, processed, and fast foods, choose a diet rich in fruits, vegetables, and whole grain, high fiber foods, and limit saturated & cholesterol in your diet. (4) Manage Blood Pressure. If you have high blood pressure, you should have a cuff at home so that you can check your blood pressure regularly. Be sure you have a good cuff. An arm one is generally better than a wrist one. Bring the cuff to a doctor's appointment to validate that the measurements that your cuff are taking are accurate. Take your blood pressure twice daily when you are si tting down and relaxing. Record the numbers in a log and bring this log with you to your doctors' appointments. (5) Lose Weight if your BMI is above 25. A healthy BMI is between 19-25. To calculate Your BMI, you may use a Standard BMI Calculator on the NIH BMI website: <www.nhlbi.nih.gov/guidelines/obesity/BMI/bmicalc.htm>. Weigh oneself daily. If you are overweight, set a goal to lose weight. A pound a week loss if needed is a good target. (6) Reduce Blood Sugar. Limit foods and liquids with "added sugars." (Added sugars include sucrose, fructose, glucose, maltose, dextrose, high fructose corn syrup, corn syrup, concentrated fruit juice and honey). (7) Stop Smoking. If you smoke, quitting smoking is one of the best things that you can do for your health. Smoking increases your risk of heart attack, stroke, and peripheral vascular disease, which is a build-up of plaque in your arteries. Please discard all the cigarettes and lighters in your house. Have a plan for what you will do when you have the urge to smoke. Direct and second- hand smoke shortens your life as well as the lives of your family, friends and others around you. For your health and the health of those around you, please consider quitting! Proper Bending Body Mechanics: Maintain a wide stance with one foot slightly in front of the other. Keep your back straight. Bend utilizing the strength in your hips and knees. Do not bend at the waist. Maintain the lifted object at your waist-level close to your body. Avoid lifting weight that causes immediately pain or pain anywhere in the body afterwards. Smoking/Nicotine If there was ever one thing that you could do to increase your overall health, decrease your risk of cardiovascular problems by about 39% the second you make the choice, it is to STOP SMOKING. Your body's most instant gratification is the second you stop smoking. We have all heard the studies, read the articles but it is true, smoking is extremely bad for your overall health, and moreover it is detrimental to your bone health. Nicotine, IN ANY FORM, kills bone cells, prevents your body from healing fractures, and significantly prolongs healing after surgery. In spine surgery specifically, it increases your risk of not healing your bones to create a fusion and increases your risk of having a revision surgery due to this up to 60%. I know it is hard. I know it feels impossible. But there are ways. Take control of your life. We are here to help you through it. And when you are bernice dy, ask us and we can direct you to help if you desire. Use the START Plan to Quit Smoking (please visit the Helpguide.org website listed below for more information): S = Set a quit date. Choose a date within the next 2 weeks, so you have enough time to prepare without losing your motivation to quit. If you mainly smoke at work, quit on the weekend, so you have a few days to adjust to the change. T = Tell family, friends, and co-workers that you plan to quit. Let your friends and family in on your plan to quit smoking and tell them you need their support and encouragement to stop. Look for a quit howard who wants to stop smoking as well. You can help each other get through the rough times. A = Anticipate and plan for the challenges you'll face while quitting. Most people who begin smoking again do so within the first 3 months. You can help yourself make it through by preparing ahead for common challenges, such as nicotine withdrawal and cigarette cravings. R = Remove cigarettes and other tobacco products from your home, car, and work. Throw away all your cigarettes (no emergency pack!), lighters, ashtrays, and matches. Wash your clothes and freshen up anything that smells like smoke. Shampoo your car, clean your drapes and carpet, and steam your furniture. T = Talk to your doctor about getting help to quit. Your doctor can prescribe medication to help with withdrawal and suggest other alternatives. If you can't see a doctor, you can get many products over the counter at your local pharmacy or grocery store, including the nicotine patch, nicotine lozenges, and nicotine gum. Resources for Quitting Smoking: <https://www.[place].gov/documents/[facility]/Quit_Tobacco_Resources_for_patients_313 480_7.pdf> Supplementation: Take recommended dosages of Vitamin D and Calcium to help fortify your bones and help them to heal. See your health maintenance packet for dosages and recommended levels. DVT/VTE prophylaxis: You will be given compression stockings from the hospital. Wear these daily for the first two weeks after surgery. You may take them off at night. You may be prescribed a medication to help thin your blood. Take this as directed. If you are not prescribed this medication, early and frequent ambulation has been shown to be the best prophylaxis to deep vein thrombosis and sequelae related to this event. Discharge Disposition: HOME SELF-CARE
--- NOTE | 2024-11-27 10:27 | P.PN ---
Subjective Progress Note Date: 11/27/24 11/24/2024 this is a 54-year-old gentleman with recent revision 10/30/2024, L3-5 decompression fusion with complaints of worsening low back and left lower extremity pain accompanied by left knee to foot numbness, admitted with lumbar postop seroma status post I&D. Tolerated procedure well. Reports pain co ntrolled with IV Dilaudid for pain management, transitioning to oral. Reports only having incisional pain with no numbness. Denies nausea vomiting or diarrhea. denies BM or passing flatus. Denies chest pain, palpitations or shortness of breath. Afebrile. WBC 11.24, hemoglobin 12.3, platelets 298. Electrolytes and renal function stable. Hemoglobin A1c 7.3, blood sugars elevated, trending down, currently in the 180s. Ambulated with PT in hallway, tolerated exertion well. Denies lightheadedness, dizziness or focal deficits. Denies chest pain, palpitations or shortness of breath. 11/25/2024 Patient seen today postoperative evacuation of seroma he has a large dressing applied to his lumbar back he has no complaint particular complaints today he denies any fever. He denies any chest pain. His sugars are improved. 11/26/2024. Ambulating in room, reports pain significantly improved, denies numbness. 100 mL out of Hemovac reported in the last 24 hrs. Afebrile. Preliminary Gram stain/wound culture reporting no organisms seen/no growth after 24 hours .ambulating in room, tolerating exertion well. Denies chest pain, palpitations or shortness of breath. Maintaining O2 sats in the high 90s to 100% on room air. Blood sugars controlled. Tolerating diet with no nausea vomiting or diarrhea. Reports passing minimal flatus, no bowel movement. 11/27/2024 reports left lower extremity numbness from knee down returning. Pain remains controlled. Hemovac drainage decreasing-minimal throughout the night, last emptied around 11 PM with currently none this morning. Afebrile.standing up at bedside, denies lightheadedness, dizziness or focal deficits. Denies chest pain, palpitations or shortness of breath. Maintaining O2 sats in the high 90s on room air. Passing flatus, positive bowel movement last night. Blood sugars this morning currently 158. Objective - Vital Signs Vital signs: Vital Signs Temp 97.5 F L 11/27/24 07:53 Pulse 93 11/27/24 07:53 Resp 20 11/27/24 07:53 BP 108/74 11/27/24 07:53 Pulse Ox 97 11/27/24 07:53 FiO2 Intake & Output 11/26/24 11/27/24 11/27/24 18:59 06:59 18:59 Output Total 140 0 Balance -140 0 Output: Drainage 140 0 Lower Back 140 0 Other: Voiding Method Toilet Toilet # Voids 1 # Bowel Movements 1 - Exam VITAL SIGNS: [Reviewed] GENERAL: Pleasant, 54-year-old male, alert and oriented x 3, standing up at bedside, no acute distress HEENT: Normocephalic, atraumatic ,conjunctivae normal. MMM. NECK:Supple, No JVD. CARDIOVASCULAR: S1, S2 regular. No murmur RESPIRATION: Unlabored, equal air entry, clear to auscultation. ABDOMEN: Soft, nondistended, nontender . No guarding. no masses palpable. +BS. LEGS: No edema. no swelling NERVOUS SYSTEM: Cranial N 2-12 grossly normal.Strength and sensation grossly intact. Skin: no lesions, no rash.Surgical clean, dry, well-approximated.hemovac present with currently no draining. Microbiology 11/24/24 15:04 Other - Other Anaerobic Culture - Preliminary 11/24/24 15:10 Other - Other Anaerobic Culture - Preliminary 11/24/24 15:10 Other - Other Gram Stain - Final 11/24/24 15:10 Other - Other Wound Culture - Final 11/24/24 15:04 Other - Other Gram Stain - Final 11/24/24 15:04 Other - Other Wound Culture - Final - Labs CBC & Chem 7: 11/25/24 04:59 11/25/24 04:59 Labs: Abnormal Lab Results - Last 24 Hours (Table) 11/26/24 11/26/24 11/26/24 Range/Units 12:27 17:06 20:50 POC Glucose (mg/dL) 161 H 237 H 160 H (70-110) mg/dL 11/27/24 Range/Units 07:04 POC Glucose (mg/dL) 158 H (70-110) mg/dL Microbiology - Last 24 Hours (Table) 11/24/24 15:04 Anaerobic Culture - Preliminary Other - Other 11/24/24 15:10 Anaerobic Culture - Preliminary Other - Other 11/24/24 15:10 Gram Stain - Final Other - Other Wound Culture - Final 11/24/24 15:04 Gram Stain - Final Other - Other Wound Culture - Final Assessment and Plan Assessment: Low back and left lower lower extremity pain with numbness, lumbar postop seroma, status post I&D in a patient status post recent revision 10/30/24 L3-5 decompression fusion Diabetes mellitus, hemoglobin A1c 7.3- improving, further diabetic recommendations, teaching outpatient in clinic with PCP Anxiety ADD, ADHD Former nicotine dependence Plan: Continue on current medication regime ,monitoring and symptomatic treatment. Discharge planning in progress pending further evaluation today as per orthopedic spine.continue aggressive pulmonary toileting with incentive spirometer. Maintain tight glycemic control further diabetic recommendations outpatient in clinic with PCP at follow-up visit. Pain management/DVT prophylaxis at discharge as per primary. Follow-up with PCP in 1 week. The impression and plan of care has been dictated as directed. : I performed a history and examination of this patient, discussed the same with the dictator. I agree with the dictator's note ,documented as a scribe. Any additional findings or plans will be noted.
== END 2024-11-27 10:28 | disposition home or self-care (01) ==
LOC: EC 19:51 → 5NMEDONC 21:57
PROVIDERS: ADMIT Orthopaedic Surgery; ATTEND Orthopaedic Surgery
DX: M96.842 Postprocedural seroma of a musculoskeletal structure following a musculoskeletal system procedure (principal); M54.16 Radiculopathy, lumbar region; G89.18 Other acute postprocedural pain; E11.65 Type 2 diabetes mellitus with hyperglycemia; F41.9 Anxiety disorder, unspecified; F90.9 Attention-deficit hyperactivity disorder, unspecified type; Z87.891 Personal history of nicotine dependence; Z79.84 Long term (current) use of oral hypoglycemic drugs; Z79.899 Other long term (current) drug therapy
CPT/HCPCS: 96376 ×2; 96361 ×3; 96365; 96366 ×2; 96375 ×2; 99285; 36415; 93005; 97161; 80053; 80048 ×2; 85025 ×3; 87070; 87205; 87075; 83036; 13160; G0378 ×5; C1713 ×2; J2250; J0330; J2270 ×2; J1580; J1720; J0690 ×2; J2405; J2003; J3010; J3260; J1171 ×4; J2704; J3373